=== PATIENT | male | born 1940 | race Caucasian/White ===

== ENCOUNTER → 2017-09-18 14:27 | Outpatient (CLI) | payer MEDICARE, SELFPAY ==
--- NOTE | 2017-09-18 14:47 | EKG12_ITS ---
Test Reason : PRE OP Blood Pressure : / mmHG Vent. Rate : 058 BPM Atrial Rate : 058 BPM P-R Int : 258 ms QRS Dur : 108 ms QT Int : 456 ms P-R-T Axes : 070 058 078 degrees QTc Int : 447 ms Sinus bradycardia with 1st degree A-V block Otherwise normal ECG Confirmed by LAURA VASQUEZ, MARIANA ([id number]), fashion editor RAVINDRA GUZMAN ([id number]) on 09/19/2017 1:22:46 PM Referred By: HIRO Confirmed By:MARIANA SANCHEZ MD
[2017-09-18 15:07] LABS: Hematocrit 41.8 % (40-54); Hemoglobin 13.9 g/dl (13.0-16.5); Mean Corp Hgb Conc 33.3 g/gl (32-36); Mean Corpuscular Hgb 32.6 pg (27.0-32.0); Mean Corpuscular Volume 97.9 fL (80-94); Mean Platelet Vol. 9.7 fl (6.2-12.0); Platelet Count 185 K/mm3 (150-450); RBC Distribution Width CV 12.6 % (11.6-14.6); RBC Distribution Width SD 43.7 fl (35.1-43.9); Red Blood Count 4.27 M/mm3 (4.6-6.2); White Blood Count 5.4 K/mm3 (4.4-11.0)
[2017-09-18 15:09] LABS: Scan Indicated on CBC? Y/N NO
[2017-09-18 15:32] LABS: Anion Gap 4 (5-15); BUN 26 mg/dL (7-18); BUN/Creat Ratio 18.7 RATIO (10-20); Calcium,Total 8.6 mg/dL (8.5-10.1); Chloride 106 mmol/L (98-107); Creatinine, Serum 1.39 mg/dL (0.70-1.30); EST Glomerular Filtration Rate 53 mL/min (>60); Est Glom Filt Rate - Afr Amer 64 mL/min (>60); Glucose 121 mg/dL (74-106); Potassium 4.2 mmol/L (3.5-5.1); Sodium Level 140 mmol/L (136-145)
== END ==
PROVIDERS: Family Provider Family Medicine; PCP Family Medicine; Visit Provider Urology
DX: N40.2 Nodular prostate without lower urinary tract symptoms (principal); N47.1 Phimosis; N48.1 Balanitis
CPT/HCPCS: 36415; 80048; 84153; 85027; 93005

== ENCOUNTER → 2017-10-06 15:51 | Outpatient (CLI) | payer MEDICARE, SELFPAY ==
--- NOTE | 2016-10-06 | IMM_PTH ---
PATIENT: SOCORRO ROSA LOC: [facility] U#:[id number] AGE/SX: 84/M ROOM: RE10/06/[address]: Dr. Italo Tinsley MD : 1940 BED: DIS: SPEC #: [id number] RECD: 10/10/17 11:35 STATUS: LIANE REMamie #: [id number] AMPARO: 10/06/16 00:[address]: Italo Tinsley DEPT: IMMUNOHISTOCHEMISTRY RECD BY: Lissett Gaxiola ENTERED: 10/10/17 11:37 SP TYPE: IMMUNO OTHR DR: Dr. Minesh Hope MD Tissues: E - PROSTATE LEFT Procedures: P40 (add) 34BE12 (initial) PHYSICIAN & INSTITUTION [place] [id number] SPECIMEN INFORMATION: Tissue Source: E - Left prostate, mid, core biopsy Clinical Info: Balanitis, nodular prostate without obstruction, nocturia Specimen Number: [id number] CPT code: 12803, 07485 METHODOLOGY: Deparaffinized sections of prefer/formalin-fixed tissue or PAP/DQ stained slides are incubated with monoclonal/polyclonal antibodies/oligonucleotide probes. Localization is made via biotin free immunoperoxidase method. Appropriate controls are performed and reacted as expected. Results on target cell population are indicated in the following table: RESULTS: ANTIBODY / CLONE RESULT Block E P40 (BC28) negative 34BE12 (34BE12) negative These tests were developed and their performance characteristics determined by [facility]. They may not have been cleared or approved by the U.S. Food and Drug Administration. The FDA has determined that such clearance or approval is not necessary. INTERPRETATION: E. Left prostate, mid, core biopsy: Adenocarcinoma. AM:avi 10/11/17
--- NOTE | 2017-10-06 08:00 | PROSBIL_PTH ---
PATIENT: SOCORRO ROSA LOC: [facility] U#:[id number] AGE/SX: 84/M ROOM: RE10/06/[address]: Dr. Italo Tinsley MD : 1940 BED: DIS: SPEC #: [id number] RECD: 10/06/17 15:25 STATUS: LIANE MENDY #: [id number] AMPARO: 10/06/17 08:[address]: Italo Tinsley DEPT: SURGICAL PATHOLOGY RECD BY: Silver Nugent ENTERED: 10/09/17 09:47 SP TYPE: PROST BX DANIELLE DR: Dr. Minesh Hope MD [facility] Tissues: A - PROSTATE RIGHT B - PROSTATE RIGHT C - PROSTATE RIGHT D - PROSTATE LEFT E - PROSTATE LEFT F - PROSTATE LEFT Procedures: PROSTATE BX HEADER OPERATION: Circumcision, transrectal ultrasound-guided prostate biopsy PRE-OP DIAGNOSIS: Balanitis, nodular prostate without obstruction, nocturia TISSUE SUBMITTED: A - Right base, B - Right mid, C - Right apex, D - Left base, E - Left mid, F - Left apex MICROSCOPIC DIAGNOSIS A. Right prostate, base, core biopsy: Adenocarcinoma: Alber grade: 7 (3+4) Cores involved: 2 out of 2 Tissue involved: 60% Greatest tumor length: 7 mm B. Right prostate, mid, core biopsy: Adenocarcinoma: Alber grade: 7 (4+3) Cores involved: 2 out of 2 Tissue involved: 70% Greatest tumor length: 11 mm C. Right prostate, apex, core biopsy: Adenocarcinoma: [place] grade: 7 (4+3) Cores involved: 2 out of 2 Tissue involved: 60% Greatest tumor length: 9 mm D. Left prostate, base, core biopsy: Adenocarcinoma: Alber grade: 7 (4+3) Cores involved: 1 out of 2 Tissue involved: 10% Greatest tumor length: 2 mm Other findings: Focal high-grade prostatic intraepithelial neoplasia (HGPIN). E. Left prostate, mid, core biopsy: Adenocarcinoma: Alber grade: 7 (3+4) Cores involved: 1 out of 2 Tissue involved: 40% Greatest tumor length: 4 mm (discontinuous) F. Left prostate, apex, core biopsy: Adenocarcinoma: Alber grade: 7 (3+4) Cores involved: 2 out of 2 Tissue involved: 45% Greatest tumor length: 10 mm (discontinuous) AM:avi 10/10/17 COMMENT E. Immunohistochemistry ([id number]) supports the above diagnosis. MICROSCOPIC DESCRIPTION Slides are reviewed. GROSS DESCRIPTION A - Received is one container labeled with the patient's name and not further designated. The specimen consists of two elongated fragments of light martinez-white soft tissue each measuring 1 cm in length and 0.1 cm in diameter. The specimen is totally submitted in one cassette. B - Received is one container labeled with the patient's name and not further designated. The specimen consists of two elongated fragments of light martinez-white soft tissue each measuring 1 cm in length and 0.1 cm in diameter. The specimen is totally submitted in one cassette. C - Received is one container labeled with the patient's name and not further designated. The specimen consists of two elongated fragments of light martinez-white soft tissue each measuring 1 cm in length and 0.1 cm in diameter. The specimen is totally submitted in one cassette. D - Received is one container labeled with the patient's name and not further designated. The specimen consists of two elongated fragments of light martinez-white soft tissue each measuring 1 cm in length and 0.1 cm in diameter. The specimen is totally submitted in one cassette. E - Received is one container labeled with the patient's name and not further designated. The specimen consists of two elongated fragments of light martinez-white soft tissue each measuring 0.8 cm in length and 0.1 cm in diameter. The specimen is totally submitted in one cassette. F - Received is one container labeled with the patient's name and not further designated. The specimen consists of two elongated fragments of light martinez-white soft tissue each measuring 1.2 cm in length and 0.1 cm in diameter. The specimen is totally submitted in one cassette. / AM:avi 10/09/17 TC:0 CPT: G0146
== END ==
PROVIDERS: Family Provider Family Medicine; PCP Family Medicine; Visit Provider Urology
DX: N48.1 Balanitis (principal); N40.1 Benign prostatic hyperplasia with lower urinary tract symptoms; R35.1 Nocturia
CPT/HCPCS: 88305; 88341; 88342; G0416

== ENCOUNTER → 2017-10-17 08:36 | Outpatient (CLI) | payer MEDICARE, SELFPAY ==
--- NOTE | 2017-10-17 08:40 | NM_ITS ---
CLINICAL: 77-year-old male with reported history of recent diagnosis of primary prostate carcinoma. WHOLE BODY 99m Tc MDP RADIONUCLIDE BONE SCINTIGRAPHY COMPARISON: None available FINDINGS: Following the intravenous administration of 25.0 mCi of 99m Tc MDP, whole body bone images reveal: 1. Increased radiopharmaceutical concentration is identified in the acromioclavicular and sternoclavicular compartments of both shoulders, mid cervical spine posteriorly on the right, first thoracic vertebra posteriorly on the left than right, second lumbar vertebra posteriorly on the right, the bilateral sacroiliac joints, right-left wrists, both hands, knees bilaterally, the left midfoot. 2. The remaining skeletal structures are scintigraphically unremarkable with normal-appearing renal images and urinary bladder activity identified. Asymmetric increased uptake is demonstrated in the right mandible most consistent with periodontal disease and/or periostitis. NM/Bone Scan Whole Body IMPRESSION: 1. The increase in radiopharmaceutical concentration defined in the bilateral shoulders, cervical, thoracic and lumbar spine, right and left sacroiliac articulations, wrists bilaterally, right-left hands, bilateral knees, the left midfoot is most consistent with degenerative arthritis. 2. There is no definitive scintigraphic evidence of diffuse axial skeletal metastatic disease on the current examination. Electronically Signed: Adi Smallwood DO at 10:09 EDT Tel , Service support ,
== END ==
PROVIDERS: Family Provider Family Medicine; PCP Family Medicine; Visit Provider Urology
DX: C61 Malignant neoplasm of prostate (principal)
CPT/HCPCS: 78306

== ENCOUNTER → 2017-10-20 12:33 | Outpatient (CLI) | payer MEDICARE, SELFPAY ==
--- NOTE | 2017-10-20 12:38 | CT_ITS ---
STUDY: CT ABDOMEN AND PELVIS WITH CONTRAST REASON FOR EXAM: Male, 77 years old. New Diagnosis prostate cancer RADIATION DOSAGE (If Supplied By Facility): CTDIvol = ( 17.71 ) mGy, DLP = ( 1105.49 ) mGycm TECHNIQUE: Transaxial images were obtained from the dome of the diaphragm to the symphysis pubis without oral contrast. 100 ml of Isovue 300 contrast was administered. Sagittal and coronal images were reconstructed. Individualized dose optimization techniques were used for this CT. COMPARISON: None. FINDINGS: The visualized lung bases are unremarkable. Partially visualized coronary calcifications. Sternotomy wires are seen midline. Normal liver. Normal gallbladder and extrahepatic biliary system. Normal spleen. Normal pancreas. Normal bilateral adrenal glands. Normal right kidney. Normal left kidney. There is a small hiatal hernia. Normal small intestine. There is a mild amount of stool within the ascending colon and transverse colon isn't decompressed near featureless appearance of the descending colon with a few scattered diverticula. There is a mildly thick-walled decompressed appearance of the rectum. Patient may have had a history of prior colitis. The appendix is visualized and appears normal. The aorta is partially calcified and mildly tortuous. There is calcification the take off of the bilateral renal arteries. Normal inferior vena cava. There a few nonspecific periaortic lymph nodes. Normal urinary bladder. The prostate measures 4.2 x 4.7 x 4.3 cm. There are a few fatty filled bilateral groin lymph nodes. There are diffuse degenerative changes of the visualized lumbar spine. At the level L2-L3 there is disc space narrowing spondylosis vacuum phenomenon mild bilateral neural foraminal narrowing or significant central stenosis. At L3-L4 there is a broad disc bulge moderate neural foramina narrowing mild central stenosis facet arthropathy. L4-L5. There is a broad disc bulge moderate neural foramina narrowing facet arthropathy and moderate central stenosis. At L5-S1 there is disc space narrowing and vacuum phenomenon mild neural foramina narrowing facet arthropathy. There is degenerative change of the SI joints. There is degenerative change of the hip joints. There are no visualized obvious lytic or sclerotic lesions throughout the visualized bony structures. CT/Abdomen/Pelvis WITH Contrast IMPRESSION: Status post CABG. Coronary artery calcification. Homogeneous liver. Minimal hydroureter hernia. Atherosclerotic disease of aorta Mild constipation Decompressed appearance of the colon with featureless appearance suggesting prior history of colitis. Mild wall thickening of the rectum could consider proctitis. The prostate is fairly homogeneous measuring 4.2 x 4.7 x 4.3 cm. No definitive obvious lytic or sclerotic or osteoblastic lesions. However recommend consideration for follow-up bone scan given the clinical diagnosis. Electronically Signed: Yoko Canela MD at 13:35 EDT Tel , Service support ,
== END ==
PROVIDERS: Family Provider Family Medicine; PCP Family Medicine; Visit Provider Urology
DX: C61 Malignant neoplasm of prostate (principal)
CPT/HCPCS: 74177; Q9967

== ENCOUNTER 2017-11-15 11:48 | Day surgery (SDC) | payer MEDICARE, SELFPAY ==
[2017-11-15 12:19] VITALS: BP 117/54; PULSE 56; RESP 14; TEMP 36.4; O2SAT 98; BMI 28.6
[2017-11-15] MEDS: Cefazolin 2 GM in 0.9% Normal Saline 100 ML IV (13:55)
--- NOTE | 2017-11-15 14:33 | PCM.DC.URO ---
Discharge Diet: Light diet - advance as tolerated Discharge Activity: Return to Normal Activity Call your doctor if your incision/area has: Continuous Slow Oozing, Sudden Increased Bleeding, Increased Pain/ Swelling, Increased Redness, Foul Smelling Discharge, Swelling at the incision site Suture Line Care: Avoid Pulling/Pushing, Avoid Pinching/Bending Allergies/Adverse Reactions: Allergies No Known Allergies Allergy (Verified 11/09/17 09:31) Medications to take at Discharge Allopurinol 100 mg PO QHS 11/09/17 Aspirin E.C. [Ecotrin] 81 mg PO DAILY@0800 11/09/17 Bicalutamide [Casodex] 50 mg PO DAILY 11/09/17 Butalbital/Acetaminophen [Butalbital-Acetaminophn 50-300] 1 each PO PRN PRN 11/09/17 Enalapril Maleate [Vasotec] 5 mg PO DAILY 11/09/17 Fluticasone Propionate [Flonase Allergy Relief] 2 spray NS DAILY 11/09/17 Furosemide [Lasix] 20 mg PO DAILY 11/09/17 Ipratropium [place] 0.06% [ATROVENT NASAL SPRAY (g)] 2 spray NASAL QHS 11/09/17 Metoprolol Tartrate [Lopressor (Beta Lamine)] 25 mg PO BID 11/09/17 Multivitamin [Multiple Vitamins] 1 each PO DAILY 11/09/17 [place]-3S/Dha/Epa/Fish Oil [[place]-3 Fish Oil 1,200 mg Sfgl] 1 each PO BID 11/09/17 Omeprazole [Prilosec] 20 mg PO DAILY 11/09/17 Rosuvastatin Calcium [Crestor] 20 mg PO QHS 11/09/17 Tamsulosin HCl [Flomax] 0.4 mg PO QHS 11/09/17 Cephalexin [Keflex] 500 mg PO BID 11/15/17 Primary Care Physician: Minesh Hope [Primary Care Provider] - Please Follow Up With: Italo Tinsley MD When: Appt MondayFebruary 05 at 1:30pm
--- NOTE | 2017-11-15 14:37 | DCINST_ITS ---
Discharge Diet: Light diet - advance as tolerated Discharge Activity: Return to Normal Activity Call your doctor if your incision/area has: Continuous Slow Oozing, Sudden Increased Bleeding, Increased Pain/ Swelling, Increased Redness, Foul Smelling Discharge, Swelling at the incision site Suture Line Care: Avoid Pulling/Pushing, Avoid Pinching/Bending Allergies/Adverse Reactions: Allergies No Known Allergies Allergy (Verified 11/09/17 09:31) Medications to take at Discharge Allopurinol 100 mg PO QHS 11/09/17 Aspirin E.C. [Ecotrin] 81 mg PO DAILY@0800 11/09/17 Bicalutamide [Casodex] 50 mg PO DAILY 11/09/17 Butalbital/Acetaminophen [Butalbital-Acetaminophn 50-300] 1 each PO PRN PRN Enalapril Maleate [Vasotec] 5 mg PO DAILY 11/09/17 Fluticasone Propionate [Flonase Allergy Relief] 2 spray NS DAILY 11/09/17 Furosemide [Lasix] 20 mg PO DAILY 11/09/17 Ipratropium [place] 0.06% [ATROVENT NASAL SPRAY (g)] 2 spray NASAL QHS 11/09/17 Metoprolol Tartrate [Lopressor (Beta Lamine)] 25 mg PO BID 11/09/17 Multivitamin [Multiple Vitamins] 1 each PO DAILY 11/09/17 [place]-3S/Dha/Epa/Fish Oil [[place]-3 Fish Oil 1,200 mg Sfgl] 1 each PO BID Omeprazole [Prilosec] 20 mg PO DAILY 11/09/17 Rosuvastatin Calcium [Crestor] 20 mg PO QHS 11/09/17 Tamsulosin HCl [Flomax] 0.4 mg PO QHS 11/09/17 Cephalexin [Keflex] 500 mg PO BID 11/15/17 Primary Care Physician: Minesh Hope [Primary Care Provider] - Please Follow Up With: Italo Tinsley MD When: Appt MondayFebruary 05 at 1:30pm
--- NOTE | 2017-11-15 14:37 | PCM.OPRPT ---
Problem List (1) Prostate cancer Status: Acute Report of Operation Date of Procedure: 11/15/17 Pre-Operative Diagnosis: Prostate cancer Post-Operative Diagnosis: same Surgery/Procedure Performed:: transperineal placement of SpaceOAR, biodegradable material. CPT 79939. transperineal placement of Gold fiducial markers in the prostate. CPT ? Type of Anesthesia:: General Drains: none - Admit VTE Documentation VTE Present on Admission: No VTE Mechan Device Prophylaxis: SCD's VTE Pharm Prophylaxis ordered?: No Reason prophylaxis not ordered:: Treatment Not Indicated
--- NOTE | 2017-11-15 14:43 | OP.PCM_ITS ---
Problem List (1) Prostate cancer Status: Acute Report of Operation Date of Procedure: 11/15/17 Pre-Operative Diagnosis: Prostate cancer Post-Operative Diagnosis: same Surgery/Procedure Performed:: transperineal placement of SpaceOAR, biodegradable material. CPT 52110. transperineal placement of Gold fiducial markers in the prostate. CPT ? Type of Anesthesia:: General Drains: none - Admit VTE Documentation VTE Present on Admission: No VTE Mechan Device Prophylaxis: SCD's VTE Pharm Prophylaxis ordered?: No Reason prophylaxis not ordered:: Treatment Not Indicated
[2017-11-15 14:45] VITALS: BP 117/54; BP 120/61; BP 128/60; PULSE 55; PULSE 58; RESP 16; TEMP 36.4; O2SAT 97
[2017-11-15 15:00] VITALS: BP 114/59; BP 117/54; PULSE 54; RESP 16; O2SAT 97
[2017-11-15 15:15] VITALS: BP 117/54; BP 120/60; PULSE 53; RESP 16; TEMP 36.2; O2SAT 98
[2017-11-15 15:50] VITALS: BP 117/54
== END 2017-11-15 15:56 | disposition home or self-care (01) ==
LOC: SDC 11:49
PROVIDERS: Family Provider Family Medicine; PCP Family Medicine; Visit Provider Urology
PROC: (CPT 10035; principal; 2017-11-15 13:50)
DX: C61 Malignant neoplasm of prostate (principal); N48.1 Balanitis; N40.3 Nodular prostate with lower urinary tract symptoms; R97.20 Elevated prostate specific antigen [PSA]; I10 Essential (primary) hypertension; I25.2 Old myocardial infarction
CPT/HCPCS: 00400; 10035; 10036 ×2; J7120

== ENCOUNTER → 2017-11-30 12:42 | Outpatient (CLI) | payer MEDICARE, SELFPAY ==
--- NOTE | 2017-11-30 12:47 | CT_ITS ---
STUDY: CT PELVIS WITH CONTRAST REASON FOR EXAM: Male, 77 years old. PROSTATE CA RADIATION DOSAGE (If Supplied By Facility): CTDIvol = ( 24.62 ) mGy, DLP = ( 1996.04 ) mGycm TECHNIQUE: Transaxial imaging of the pelvis was performed without oral contrast. 100CC ml of Isovue 300 contrast was administered intravenously. Individualized dose optimization techniques were used for this CT. COMPARISON: Oct 20 2017 12:49pm FINDINGS: Normal urinary bladder. The prostate measures 4.2 x 4.7 x 4.3 cm. Normal visualized small intestine. Normal visualized colon. There is no pelvic fluid. There is no pelvic lymphadenopathy or mass lesion. Normal visualized pelvic arteries. Normal abdominal wall. There are diffuse degenerative changes of the visualized lumbar spine. CT/CT Pelvis W/CONT Therapy IMPRESSION: The prostate measures 4.2 x 4.7 x 4.3 cm. Electronically Signed: Jarred Olson MD at 10:22 EDT Tel , Service support ,
== END ==
PROVIDERS: Family Provider Family Medicine; PCP Family Medicine; Visit Provider Radiology Radiation Oncology
DX: C61 Malignant neoplasm of prostate (principal)
CPT/HCPCS: 51600; 72193; Q9965; Q9967

== ENCOUNTER → 2019-05-06 14:24 | Outpatient (CLI) | payer MEDICARE, SELFPAY ==
[2019-05-06 15:12] LABS: PSA,Total- Diagnostic 0.02 ng/mL (0.0-4.0)
== END ==
PROVIDERS: Family Provider Family Medicine; PCP Family Medicine; Referring Provider Urology; Visit Provider Urology
DX: C61 Malignant neoplasm of prostate (principal)
CPT/HCPCS: 36415; 84153

== ENCOUNTER → 2025-04-03 | Outpatient (CLI) | payer OTHER, SELFPAY ==
--- OUTSIDE RECORDS SUMMARY | 2025-04-03 15:57 | XMS RPT_ITS | CCD ---
Author Organization [facility] Care Team Providers Care Geotechnical Field Technician Name Role Phone Nasim CHATTERJEE, Luke E Unavailable Nasim CHATTERJEE, Nehalke E Unavailable Brian VASQUEZ, Dr. Junie Barrett Unavailable Cal VASQUEZ, Dr. Joshua Acharya Unavailable Dr. Alexys Ribera MD Unavailable [facility] Unavailable Alvina VASQUEZ, Dr. Puckett ([facility]) Unavailable [facility], . Unavailable Pacheco VASQUEZ, Dr. Clifton Whittaker Unavailable Jun VASQUEZ, Dr. Mcdaniel Unavailable [phone] [facility] Unavailable Agnieszka VASQUEZ, Dr. Frederick Unavailable Juarez CHATTERJEE, Amanda Acharya Unavailable Jayy VASQUEZ, Minesh Whittaker Unavailable Bennett ALARCONN, Mercedes García Unavailable Unavailable Austin ALARCONN, Cookie Unavailable Unavailable Dany VASQUEZ, Chase Silva Unavailable Anabella CHATTERJEE, Elizabeth Ames Unavailable [phone] Raul BECKMAN, Anat Unavailable Unavailable Traci HERRERA, Elizabeth Silva Unavailable Unavaila donna Saeed MA, Heidi Unavailable Unavailable Ajay ALARCONN, Elaine Unavailable Unavailable Diana ALARCONN, Carie K Unavailable Unavadee Clark PA-C, Iliana Acharya Unavailable Nica Ibarra Unavailable Dorcas BECKMAN, Shital Barrett Unavailable Unavailab le Sacha GUNSTOCK REPAIRER, Ольга Davila Unavailable Unavailab hasmukh [place] GUNSTOCK REPAIRER, Alicia Pittman Unavailable Unavailab hasmukh Laura MD, Kalin Silva Unavailable [phone] Vess GUNSTOCK REPAIRER, Mary Barrett Unavailable Unavailable Jerald GUNSTOCK REPAIRER, Joan Unavailable Unavailabl delmis Bowman GUNSTOCK REPAIRER, Kiki Unavailable Unavailable Unavailable Unavailable Cardiology Provider Unavailable Unavailable Ramos GUNSTOCK REPAIRER, Zaid Unavailable Unavailable Unavailable Unavailable Javon VASQUEZ, Dr. Garvey Unavailable [phone] JUNIE ROY Admitting Unavailable JUNIE ROY Primary Care Unavailable JUNIE ROY Attending Unavailable MINESH JACKSON Consulting Unavailable PROVIDER, UNKNOWN Consulting Unavailable PROVIDER, UNKNOWN Consulting Unavailable PROVIDER, UNKNOWN Consulting Unavailable JUNIE ROY Admitting Unavailable JUNIE ROY Primary Care Unavailable JUNIE ROY Attending Unavailable MINESH JACKSON Consulting Unavailable PROVIDER, UNKNOWN Consulting Unavailable PROVIDER, UNKNOWN Consulting Unavailable PROVIDER, UNKNOWN Consulting Unavailable Allergies Allergy Classification Reported Allergen(s) Allergy Type Date of Onset Reaction(s) Facility (3 sources) levoFLOXacin Drug Allergy [facility]; [facility] (1 source) levoFLOXacin Drug Allergy [facility] Repository Medications Current Medications Medication Drug Class(es) Dates Sig (Normalized) Sig (Original) 8 hr acetaminophen 650 mg extended release oral tablet (3 sources) Arthritis Pain Relief 650 MG Oral Tablet Extended Release ; as needed (650 MG) Comments: Medication taken as needed. Comment on above: Medication taken as needed. acetaminophen 325 mg / butalbital 50 mg oral tablet (3 sources) Barbiturate Start: 02-12-2025 butalbitaL 50 mg-acetaminophen 325 mg tablet ; 1 (one) Tablet q 6hrs prn migraine for 0 days Quantity: 30 {Tablet} Refills: 0 Ordered: 12-Feb-2025 SEN Rouse Start: 12-Feb-2025 Comments: OARRS 02/12/25 Start: 03-04-2021 take 1 tablet by candice th every six hours as needed Butalbital-Acetaminophen 50-325 MG Oral Tablet ; 1 (one) Tablet q 6hrs prn migraine for 0 days Quantity: 30 {Tablet} Refills: 0 Ordered: 04-Mar-2021 MD Minesh Jackson Start: 04-Mar-2021 Comments: OARRS03/04/2021WM Comment on above: OARRS03/04/2021WM OARRS 02/12/25 allopurinol 100 mg oral tablet (3 sources) Xanthine Oxidase Inhibitor Start: 021 take 1 tablet by mouth once daily Allopurinol 100 MG Oral Tablet ; 1 (one) Tablet qd for 0 days Quantity: 90 {Tablet} Refills: 1 Ordered: 28-Apr-2021 MD Minesh Jackson Start: 28-Apr-2021 aspirin 81 mg chewable tablet (3 sources) Platelet Aggregation Inhibitor, Nonsteroidal Anti-inflammatory Drug take 1 tablet by mouth once daily ASPIRIN CHILDRENS, 81MG (Oral Tablet Chewable) ; 1 daily (81 MG) cholecalciferol 0.125 mg oral capsule (3 sources) Vitamin D take 1 capsule by mouth once daily Vitamin D3 125 MCG (5000 UT) Oral Capsule ; 1 daily (125 MCG (5000 UT)) enalapril maleate 10 mg oral tablet (3 sources) Angiotensin Converting Enzyme Inhibitor enalapril maleate 10 mg tablet ; 1 daily (10 mg) take 1 tablet by mouth once hu y ENALAPRIL MALEATE, 5MG (Oral Tablet) ; 1 daily (5 MG) Fish Oil 1200 MG Oral Capsule Delayed Release (3 sources) take 1 capsule by mouth twice daily Fish Oil 1200 MG Oral Capsule Delayed Release ; 1 two times a day (1200 MG) fluticasone propionate 0.05 mg/actuat metered dose nasal spray (3 sources) Corticosteroid Start: 05-18-20 20 take 2 spray(s) nasal route once Fluticasone Propionate 50 MCG/ACT Nasal Suspension ; 2 (two) sprays per nostril qd for 0 days Quantity: 1 {Inhaler} Refills: 5 Ordered: 18-May-2020 MD Chase Saenz Start: 18-May-2020 furosemide 20 mg oral tablet (3 sources) Loop Diuretic Start: 06-14-20 21 take 1 tablet by mouth once daily Furosemide 20 MG Oral Tablet ; 1 (one) Tablet qd for 0 days Quantity: 45 {Tablet} Refills: 5 Ordered: 14-Jun-2021 MD Minesh Jackson Start: 14-Jun-2021 Comments: WM Davila Comment on above: WM Davila lamoTRIgine 100 mg oral tablet (2 sources) Mood Stabilizer, Anti-epileptic Agent lamoTRIgine 100 mg tablet ; two times daily (100 mg) metoprolol tartrate 25 mg oral tablet (3 sources) beta-Adrenergic Lamine take 1 tablet by mouth twice daily METOPROLOL TARTRATE, 25MG (Oral Tablet) ; 1 two times daily (25 MG) nitroglycerin 0.4 mg sublingual tablet (3 sources) Nitrate Vasodilator NITROSTAT, 0 .4MG (Sublingual Tablet Sublingual) ; 1 q5 min up to 3 doses prn (0.4 MG) omeprazole 40 mg delayed release oral capsule (3 sources) Proton Pump Inhibitor Start: 02-13-20 omeprazole 40 mg capsule,delayed release ; 1 Capsule daily for 0 days Quantity: 30 {Capsule} Refills: 5 Ordered: 12-Feb-2025 SEN Rouse Start: 12-Feb-2025 Start: 03-29-2021 take 1 capsule by mo [facility] once daily Omeprazole 20 MG Oral Capsule Delayed Release ; 1 Capsule daily for 0 days Quantity: 30 {Capsule} Refills: 5 Ordered: 29-Mar-2021 MD Minesh Jackson Start: 29-Mar-2021 rosuvastatin calcium 20 mg oral tablet (5 sources) HMG-CoA Reductase Inhibitor End: 02-12-2025 rosuvastatin 20 mg tablet ; daily (20 mg) solifenacin succinate 10 mg oral tablet (2 sources) Cholinergic Muscarinic Antagonist solifenacin 10 mg tablet ; daily (10 mg) tamsulosin hydrochloride 0.4 mg oral capsule (3 sources) alpha-Adrenergic Lamine Start: 06-14-2021 take 1 capsule by mouth once daily Tamsulosin HCl 0.4 MG Oral Capsule ; 1 Capsule qd for 0 days Quantity: 30 {Capsule} Refills: 5 Ordered: 14-Jun-2021 MD Minesh Jackson Start: 14-Jun-2021 Completed/Discontinued Medications Medication Drug Class(es) Dates Sig (Normalized) Sig (Original) acetaminophen 325 mg / dichloralphenazone 100 mg / isometheptene 65 mg oral capsule (3 sources) MIDRIN, [id number] (Oral Capsule) ; as needed (325-65-100 MG) Status: Inactive Comments: Medication taken as needed. Comment on above: Medication taken as needed. amitriptyline hydrochloride 10 mg oral tablet (3 sources) Tricyclic Antidepressant End: 02-12-2025 take 1 tablet by mouth at bedtime Amitriptyline HCl 10 MG Oral Tablet ; 1 at bedtime (10 MG) End: 12-Feb-2025 Status: Inactive amoxicillin 875 mg / clavulanate 125 mg oral tablet (3 sources) Penicillin-class Antibacterial Start: 02-25-2021 End: 03-07-2021 take 1 tablet by mouth twice daily at mealtime Amoxicillin-Pot Clavulanate 875-125 MG Oral Tablet ; 1 Tablet two times daily for 10 days Quantity: 20 {Tablet} Refills: 0 Ordered: 25-Feb-2021 MD Minesh Jackson Start: 25-Feb-2021 End: 07-Mar-2021 Status: Inactive Comments: Take with food Comment on above: Take with food aspirin 325 mg / butalbital 50 mg / caffeine 40 mg oral capsule (6 sources) Platelet Aggregation Inhibitor, Barbiturate, Nonsteroidal Anti-inflammatory Drug, Central Nervous System Stimulant, Methylxanthine Start: 03-18-2013 End: 09-18-2013 take 1 capsule by mouth every six hours as needed FIORINAL, 50-325-40MG (Oral Capsule) ; 1 Capsule q 6hrs prn LAM for 0 days Quantity: 30 {Capsule} Refills: 5 Ordered: 18-Sep-2013 KARUNA Wisdom Alicia Pittman Start: 18-Mar-2013 End: 18-Sep-2013 Status: Inactive Comments: MM BUTALBITAL COMPO UND/ASA, 50-325-40MG (Oral Capsule) ; (50-325-40 MG) Status: Inactive Comment on above: MM cefuroxime 250 mg oral tablet (3 sources) Cephalosporin Antibacterial take 1 tablet by mouth twice daily Ceftin 250 MG Oral Tablet ; 1 two times daily (250 MG) Status: Inactive Comments: given at ER Comment on above: given at ER cephalexin 500 mg oral capsule (3 sources) Cephalosporin Antibacterial Start: End: take 1 capsule by mouth three times daily CEPHALEXIN, 500MG (Oral Capsule) ; 1 Capsule three times daily for 10 days Quantity: 30 {Capsule} Refills: 0 Ordered: 17-Sep-2012 MD Minesh Jackson Start: 05-Sep-2012 End: 15-Sep-2012 Status: Inactive donepezil hydrochloride 5 mg oral tablet (6 sources) Start: End: take 1 tablet by mouth once daily Aricept 5 MG Oral Tablet ; 1 (one) Tablet Tablet qd for 0 days Quantity: 30 {Tablet} Refills: 5 Ordered: 26-Nov-2019 KARUNA Wisdom Start: 11-Jun-2019 End: 26-Nov-2019 Status: Inactive escitalopram 20 mg oral tablet (3 sources) Serotonin Reuptake Inhibitor Start: End: take 1 tablet by mouth once daily Escitalopram Oxalate 20 MG Oral Tablet ; 1 (one) Tablet qd for 0 days Quantity: 30 {Tablet} Refills: 5 Ordered: 24-Apr-2019 MD Minesh Jackson Start: 29-Mar-2019 End: 24-Apr-2019 Status: Inactive fluconazole 100 mg oral tablet (3 sources) Azole Antifungal Start: End: take 1 tablet by mouth once daily Diflucan 100 MG Oral Tablet ; 1 Tablet daily for 7 days Quantity: 7 {Tablet} Refills: 0 Ordered: 28-Jul-2017 MD Minesh Jackson Start: 28-Jul-2017 End: 04-Aug-2017 Status: Inactive Fortify Daily Probiotic Oral Capsule (3 sources) take 1 capsule by mouth once daily Fortify Daily Probiotic Oral Capsule Status: Inactive GLUCOSAMINE CHONDROITIN COMPLX (Oral Capsule) (3 sources) take 2 capsules by mouth twice daily GLUCOSAMINE CHONDROITIN COMPLX (Oral Capsule) ; 2 two times daily Status: Inactive ibuprofen 200 mg oral tablet (3 sources) Nonsteroidal Anti-inflammatory Drug take 1 tablet by mouth twice daily as needed IBUPROFEN 200, 200MG (PO Tab) ; 1 two times daily, as needed (200 MG) Status: Inactive Comments: Medication taken as needed. Comment on above: Medication taken as needed. ipratropium bromide 0.042 mg/actuat metered dose nasal spray (3 sources) Anticholinergic Ipratropium Anderson 0.06 % Nasal Solution ; (0.06 %) Status: Inactive Comments: per Dr. Aaron Comment on above: per Dr. Aaron Ipratropium Anderson 18 MCG/ACT Inhalation Aerosol Solution (3 sources) Ipratropium Anderson 18 MCG/ACT Inhalation Aerosol Solution ; 2 daily (18 MCG/ACT) Status: Inactive levoFLOXacin 500 mg oral tablet (3 sources) Quinolone Antimicrobial Start: 017 End: take 1 tablet by mouth once daily Levaquin 500 MG Oral Tablet ; 1 Tab Daily for 10 days Quantity: 10 {Tablet} Refills: 0 Ordered: 05-Sep-2016 MD Minesh Jackson Start: 02-Sep-2016 End: 05-Sep-2016 Status: Inactive lovastatin 20 mg oral tablet (3 sources) HMG-CoA Reductase Inhibitor Start: End: take 1 tablet by mouth once daily Lovastatin 20 MG Oral Tablet ; 1 Tablet daily for 0 days Quantity: 30 {Tablet} Refills: 5 Ordered: 14-Aug-2017 KARUNA Guajardo Start: 29-Apr-2016 End: 14-Aug-2017 Status: Inactive meclizine hydrochloride 25 mg oral tablet (3 sources) Antiemetic Start: End: DRAMAMINE LESS DROWSY, 25MG (Oral Tablet) ; 1 Tablet 68h for 0 days Quantity: 30 {Tablet} Refills: 0 Ordered: 11-Jul-2013 KARUNA Marques Start: 22-Apr-2010 End: 11-Jul-2013 Status: Inactive meloxicam 15 mg oral tablet (3 sources) Nonsteroidal Anti-inflammatory Drug Start: End: take 1 tablet by mouth once daily Meloxicam 15 MG Oral Tablet ; 1 (one) Tablet qd for 0 days Quantity: 30 {Tablet} Refills: 5 Ordered: 26-Nov-2019 MD Minesh Jackson Start: 28-Oct-2019 End: 26-Nov-2019 Status: Inactive Mens Multivitamin Plus Oral Tablet (3 sources) take 1 tablet by mouth once daily Mens Multivitamin Plus Oral Tablet ; 1 daily Status: Inactive nystatin [id number] unt/ml topical cream (3 sources) Polyene Antifungal Start: End: Nystatin [id number] UNIT/GM External Cream ; apply Cream tid prn for 0 days Quantity: 60 {Gram} Refills: 5 Ordered: 06-Dec-2017 KARUNA Ortiz K Start: 28-Jul-2017 End: 06-Dec-2017 Status: Inactive Westerly 3 1000 MG Oral Capsule (3 sources) take 1 capsule by mouth once daily [place]esterly 3 1000 MG Oral Capsule ; 1 daily (1000 MG) Status: Inactive predniSONE 20 mg oral tablet (3 sources) Start: 016 End: take 3 tablets by mouth once daily, then take 2 tablets by mouth once daily, then take 1 tablet by mouth once daily, then take 0.5 tablet by mouth once daily PredniSONE 20 MG Oral Tablet ; Tablet for 0 days Quantity: 20 {Tablet} Refills: 0 Ordered: 06-Dec-2017 KARUNA Ortiz Start: 29-Apr-2016 End: 06-Dec-2017 Status: Inactive Comments: Take 3tabs qd for 3 days thenTake 2tabs qd for 3 days thenTake 1tab qd for 3 days thenTake 1/2tab qd for 4 days. Comment on above: Take 3tabs qd for 3 days thenTake 2tabs qd for 3 days thenTake 1tab qd for 3 days thenTake 1/2tab qd for 4 days. sulfamethoxazole 800 mg / trimethoprim 160 mg oral tablet (3 sources) Dihydrofolate Reductase Inhibitor Antibacterial, Sulfonamide Antimicrobial Start: 020 End: take 1 tablet by mouth twice daily Bactrim DS 800-160 MG Oral Tablet ; 1 (one) Tablet bid for 10 days Quantity: 20 {Tablet} Refills: 0 Ordered: 01-Jul-2019 MD Minesh Jackson Start: 01-Jul-2019 End: 11-Jul-2019 Status: Inactive triamcinolone acetonide 0.055 mg/actuat metered dose nasal spray (6 sources) Corticosteroid Start: 011 End: 014 NASACORT AQ, 55MCG/ACT (Nasal Aerosol Solution) ; 2 squirts each nostril daily for nasal allergies for 0 days Quantity: 1 {nasal_pump} Refills: 0 Ordered: 11-Jul-2013 KARUNA Marques Start: 27-Jul-2010 End: 11-Jul-2013 Status: Inactive NASACORT AQ, 55M CG/ACT (Nasal Aerosol Solution) ; 2 sprays daily (55 MCG/ACT) Status: Inactive 24 hr venlafaxine 37.5 mg extended release oral capsule (6 sources) Serotonin and Norepinephrine Reuptake Inhibitor Start: 04-24-2019 End: 04-29-2019 take 1 capsule by mouth once daily Venlafaxine HCl ER 37.5 MG Oral Capsule Extended Release 24 Hour ; 1 (one) Capsule qd for 14 days Quantity: 14 {Capsule} Refills: 0 Ordered: 29-Apr-2019 MD Minesh Jackson Start: 24-Apr-2019 End: 29-Apr-2019 Status: Inactive Start: 04-24-2019 End: 04-29-2019 take 1 capsule by mouth once daily Venlafaxine HCl ER 75 MG Oral Capsule Extended Release 24 Hour ; 1 (one) Capsule qd for 0 days Quantity: 30 {Capsule} Refills: 5 Ordered: 29-Apr-2019 MD Minesh Jackson Start: 24-Apr-2019 End: 29-Apr-2019 Status: Inactive Problems Active Problems Problem Classification Problem Date Documented Da te Episodic/Chronic Abdominal hernia (9 sources) Umbilical hernia; Translations: [Umbilical hernia without obstruction or gangrene] 03-07-2016 Episodic Abdominal pain (12 sources) Abdominal pain, generalized 04-12-2019 Episodic Allergic reactions (6 sources) Contact dermatitis and other eczema, unspecified cause 04-12-2019 Episodic Cancer of prostate (18 sources) Malignant tumor of prostate; Translations: [Malignant neoplasm of prostate] 03-29-2021 Chronic Cancer of prostate (11 sources) History of malignant neoplasm of prostate; Translations: [Personal history of malignant neoplasm of prostate] 02-12-2025 Episodic Chronic kidney disease (16 sources) Chronic kidney disease stage 3; Translations: [Chronic kidney disease, Stage III (moderate)] Onset: 5 03-29-2021 Chronic Chronic obstructive pulmonary disease and bronchiectasis (3 sources) Bronchitis; Translations: [Bronchitis, not specified as acute or chronic] 07-11-2013 Episodic Chronic ulcer of skin (2 sources) Pressure ulcer of buttock; Translations: [Pressure ulcer of unspecified buttock, unspecified stage] 02-13-2025 Chronic Conditions associated with dizziness or vertigo (6 sources) Benign paroxysmal positional vertigo; Translations: [Benign paroxysmal vertigo, unspecified ear] 04-12-2019 Episodic Coronary atherosclerosis and other heart disease (20 sources) Coronary arteriosclerosis in [place] artery; Translations: [Atherosclerotic heart disease of [place] coronary artery without angina pectoris] Onset: 5 03-29-2021 Chronic Disorders of lipid metabolism (20 sources) Hyperlipidemia; Translations: [Hyperlipidemia, unspecified] Onset: 5 03-29-2021 Chronic E Codes: Natural/environment (6 sources) Bitten or stung by nonvenomous insect and other nonvenomous arthropods, initial encounter; Translations: [Insect bite, nonvenomous, of other, multiple, and unspecified sites, without mention of infection] 05-28-2019 Episodic Esophageal disorders (20 sources) Gastroesophageal reflux disease; Translations: [Gastro-esophageal reflux disease without esophagitis] 03-29-2021 Chronic Essential hypertension (20 sources) Benign essential hypertension; Translations: [Essential (primary) hypertension] Onset: 5 03-29-2021 Chronic Gout and other crystal arthropathies (20 sources) Gout; Translations: [Gout, unspecified] 03-29-2021 Chronic Headache; including migraine (20 sources) Migraine; Translations: [Migraine without aura, not intractable, without status migrainosus] 03-29-2021 Chronic Hyperplasia of prostate (18 sources) Benign prostatic hypertrophy with outflow obstruction; Translations: [Benign prostatic hyperplasia with lower urinary tract symptoms] 04-12-2019 Chronic Immunizations and screening for infectious disease (15 sources) Requires vaccination; Translations: [Encounter for immunization] 11-26-2019 Episodic Malaise and fatigue (6 sources) Fatigue; Translations: [Other fatigue] 04-12-2019 Episodic Mood disorders (20 sources) Recurrent major depressive episodes, mild ; Translations: [Major depressive disorder, recurrent, mild] 03-29-2021 Chronic Mycoses (9 sources) Penile candidiasis; Translations: [Other urogenital candidiasis] 08-14-2017 Episodic Noninfectious gastroenteritis (6 sources) Gastroenteritis; Translations: [Noninfective gastroenteritis and colitis, unspecified] 04-12-2019 Episodic Osteoarthritis (20 sources) Osteoarthrosis, unspecified whether generalized or localized, pelvic region and thigh; Translations: [Osteoarthritis of bilateral hip joints] 04-12-2019 Chronic Other aftercare (20 sources) Long-term (current) use of other medications 04-12-2019 Episodic Other circulatory disease (1 source) Disorder of arteries and arterioles, unspecified; Translations: [Disorder of arteries and arterioles, unspecified] Onset: 09-15-202 5 Chronic Other connective tissue disease (6 sources) Ganglion cyst; Translations: [Ganglion, unspecified site] 09-10-2019 Episodic Other connective tissue disease (6 sources) Ganglion cyst of right wrist; Translations: [Ganglion, right wrist] 03-29-2021 Episodic Other connective tissue disease (6 sources) Pain in lower limb; Translations: [Pain in leg, unspecified] 04-12-2019 Episodic Other connective tissue disease (9 sources) Swelling of lower limb; Translations: [Other specified soft tissue disorders] 09-01-2015 Episodic Other connective tissue disease (6 sources) Cramp; Translations: [Cramp and spasm] 11-25-2014 Episodic Other ear and sense organ disorders (3 sources) Impacted cerumen 2012 Episodic Other gastrointestinal disorders (6 sources) Diarrhea; Translations: [Diarrhea, unspecified] 09-10-2019 Episodic Other injuries and conditions due to external causes (3 sources) Friction blisters of the skin; Translations: [Other injury of unspecified body region] 01-18-2016 Episodic Other lower respiratory disease (15 sources) Cough; Translations: [Cough] 03-29-2021 Episodic Other male genital disorders (3 sources) Impotence of organic origin 05-09-2012 Chronic Other nervous system disorders (6 sources) Neuropathy; Translations: [Polyneuropathy, unspecified] 03-29-2021 Chronic Other non-epithelial cancer of skin (4 sources) History of malignant neoplasm of skin; Translations: [Personal history of other malignant neoplasm of skin] 02-12-2025 Episodic Other non-traumatic joint disorders (12 sources) Polyarthropathy; Translations: [Polyarthritis, unspecified] 03-29-2021 Chronic Other nutritional; endocrine; and metabolic disorders (6 sources) Overweight in adulthood with body mass index of 25 or more but less than 30; Translations: [Body mass index (BMI) 29.0-29.9, adult] 04-12-2019 Episodic Other nutritional; endocrine; and metabolic disorders (3 sources) Body mass index less than 20; Translations: [Body mass index (BMI) 19.9 or less, adult] 05-12-2017 Episodic Other screening for suspected conditions (not mental disorders or infectious disease) (12 sources) Patient encounter status; Translations: [Encounter for screening for nutritional disorder] 03-29-2021 Episodic Other skin disorders (6 sources) Eruption; Translations: [Rash and other nonspecific skin eruption] 04-12-2019 Episodic Other upper respiratory disease (6 sources) Congestion of nasal sinus; Translations: [Nasal congestion] 09-10-2019 Episodic Other upper respiratory disease (3 sources) Nasal congestion; Translations: [Nasal congestion] 02-10-2015 Episodic Other upper respiratory infections (20 sources) Chronic sinusitis; Translations: [Chronic sinusitis, unspecified] 05-28-2019 Chronic Other upper respiratory infections (18 sources) Acute sinusitis; Translations: [Acute sinusitis, unspecified] 06-08-2019 Episodic Residual codes; unclassified (3 sources) Confusional state; Translations: [Disorientation, unspecified] 07-01-2019 Episodic Residual codes; unclassified (9 sources) Altered mental status; Translations: [Altered mental status, unspecified] 06-11-2019 Episodic Unclassified (3 sources) MCR Well Adult - In general the patient feels well with no complaints, has good energy level and is sleeping well. The patient has a balanced diet and takes supplemental vitamins. The patient exercises weekly and sleeps 8 hours per night. The patient denies having trouble with bathing, dressing/grooming, toileting, preparing meals and ambulating. The patient denies having trouble with grocery shopping, driving, use of telephone, housework, laundry, preparing/taking medications and finances. The patient has a Healthcare Power of Cloth Feeder and a Living Will. Note for "MCR Well Adult": reviewed by [facility] 01-12-2021 Unclassified (3 sources) Pre-operative clearance - Surgical procedure(s) planned: other (cataract extraction with lens implant.). Date of procedure: (12-10-20) Surgeon: ([facility]) and Location of procedure: ([facility]) There have been no problems with general anesthesia or blood/blood products. Prosthetics include eye glasses. Note for Pre-operative clearance": reviewed by [facility] 12-01-2020 Unclassified (3 sources) Follow up for multiple chronic conditions - The patient is here for follow-up of chronic kidney disease, coronary artery disease, depression, GERD, gout, hyperlipidemia, hypertension and other condition(s) (prostate cancer). The patient always takes the prescribed medications. No side effects noted. The patient has low activity level and no regular exercise program. The patient's out of office blood pressure checks occur occasionally and dietary compliance is fairly good usually adhering to recommendations. The patient states that there is no recent angina or dyspnea (will have a discomfort of the right side of chest that comes and goes, "feels like gas".), weight has increased (3lbs since DONALDO) and headaches have been noticed occasionally. Note for "Multiple chronic conditions follow-up": Will be leaving soon to go to [place] but will return in about 1 month. 02-21-2020 Unclassified (3 sources) [ADDITIONAL REASON] Transition into care - The patient is transitioning into care from another physician (Urologist Dr. Tinsley 01/20/2020) and a summary of care was reviewed. 02-21-2020 Unclassified (2 sources) MCR Well Adult - In general the patient feels well with no complaints, has good energy level and is sleeping well. The patient has a balanced diet and takes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 sources) Foot pain - The pain is in the left foot and is located in the entire foot. The onset of the foot pain was acute and has been occurring for 5 days. The course has been constant. The pain is moderate. The pain is characterized as a dull aching. Note for "Foot pain": no knwon injury 06-03-2015 Unclassified (3 sources) Foot pain - The pain is in the left foot. The onset of the foot pain was sudden following no specific incident and has been occurring in a persistent pattern for 1 month. The course has been constant. The pain is moderate. The pain is characterized as a dull aching. The pain is aggravated by prolonged standing. The pain has been relieved by rest (and elevation.). The symptoms have been associated with pain in ankle, warmth and erythema (and swelling.). Note for "Foot pain": Has pain on top of foot and on both sides of the ankle. Had some problems in past with pain in toes. Thought it was gout butnever diagnosed. reviewed by B 05-11-2015 Unclassified (3 sources) Cold Symptoms - Symptoms include sneezing, nasal congestion, runny nose, sore throat, scratchy throat, dry cough and productive cough. The onset was sudden 3 month(s) ago. The symptoms occur constantly. The patient describes this as moderate in severity and unchanged. The patient is not currently being treated for this problem. Risk factors do not include child in daycare or smoking. The patient has not been exposed to an individual with a cough, an individual with an upper respiratory infection, an individual with similar symptoms, an individual with strep or secondhand smoke. Note for "Upper respiratory infection": diarrhea also On November 25 he was treated w Augmentin for possible sinusitis and then on 12/23 was treated with steroids. Steroid did not help nor did he worsen. 02-04-2015 Unclassified (3 sources) Cold Symptoms - Symptoms include sneezing, nasal congestion, runny nose, productive cough, chills, general malaise and facial pain, but do not include ear pain or sore throat. The onset was sudden 2 week(s) ago. The symptoms occur constantly. The patient describes this as moderate in severity and worsening. Medical history includes seasonal allergies. Note for "Upper respiratory infection": Was treated 11-25-14 with Augmentin for diagnosis of sinusitis. Symptoms improved after that round of antibiotics. reviewed by [facility] 12-23-2014 Unclassified (3 sources) Body cramping - Continues with frequent cramping of hands and legs for the past couple of months with no improvement. Also complains of increase in fatigue for a couple of months. I had him stop his Statin drug but that did not help sx. Sx are worsening.he is also concerned about sinus infection ( he gets them often ) 11-25-2014 Unclassified (3 sources) Hand and Leg cramping - Pt here today because he will get cramps in hands and legs. This has been going on for years but cramping has really intensified over the past week or two. Cramps in hands is mainly in fingers and legs it is mainly between knees and thighs. Fingers will "lock" at times. No swelling. Cramping is anytime of day but seems worse at night. Pt sleeps in a recliner due to back issues and not sure if this is related to cramping. Walking helps the cramps in legs and straightening out and stretching helps relieve the cramps in fingers. reviewed by [facility] 10-17-2014 Unclassified (3 sources) Rash - The onset of the rash has been acute and has been occurring in a persistent pattern for 1 week. The course has been increasing. The rash is characterized as red, weeping and raised above the skin. The rash was first seen on the upper extremity. It spread to the lower extremity. There has been associated itching and erythema. There has been no associated fever. Note for "Rash": he had been scheduled for hernia repair last Fri per Dr. Jonas Barahona and was cancelled d/t where rash was on the arm at the site of IV access...wants treated so they can proceed with surgery October 20, requesting injection as he has been treated with this in the past 10-07-2014 Unclassified (3 sources) Hernia - The onset of the hernia has been acute and has been occurring in a persistent pattern. The course has been increasing. The hernia is described as mild. The hernia is described as being located in the groin-right. Note for "Hernia": Right side is worsening. 08-25-2014 Unclassified (3 sources) Abdominal pain - The onset of the abdominal pain has been acute and has been occurring in a persistent pattern for 2 months. The course has been constant. The pain is described as a moderate fullness and cramping. The pain is located in the right upper quadrant and epigastrium and does not radiate. The symptoms are aggravated by meals (1/2 to 1 hour after eating) but are relieved by passing flatus. The symptoms have been associated with bloating, while the symptoms have not been associated with chest pain, constipation, diarrhea, dysuria or nausea. Note for "Abdominal pain": No specific food triggers. 05-13-2014 Unclassified (3 sources) Groin pain - Right side groin pain for 1 week with no improvement. Pain is worse with cough. No fever. He would occassionally pain there in thepast but not this long or severe. He was couighing recently due to sinus illness. 03-10-2014 Unclassified (3 sources) Cold Symptoms - Symptoms include nasal congestion, runny nose, productive cough, headache and facial pain, but do not include ear pain or sore throat. The onset was gradual 1 month(s) ago. The symptoms occur constantly. The patient describes this as moderate in severity and worsening. The patient has not been exposed to an individual with similar symptoms. Medical history includes seasonal allergies and recurrent sinusitis, but patient denies history of recurrent strep pharyngitis, asthma, tonsillectomy or recurrent ear infections. Note for Upper respiratory infection": has been using nasocort. reviewed by [facility] 03-03-2014 Unclassified (3 sources) Discuss Migraines - Pt here this morning to discuss his headaches. Was diagnosed with "Silent Migraines" back around 1999. Is currently on Butalbital Compound 50-325 for these which has been working well for him. However Migraines have been getting more frequent. He used to go months without having any. Has had one 4 days in a row this week but none so far today. As long as he takes his Butalbital headache is gone within a half hour. What is concerning to him is an increase in visual problems. He used to just see "blank spaces" like in a jig saw puzzle when he looks in front of him while now he will also experieince some dark blinking spots where pieces of puzzle are missing. reviewed by [facility] 11-01-2013 Unclassified (3 sources) Cold Symptoms - Symptoms include nasal congestion, runny nose (bloody drainage for a couple of days), productive cough (worse at night), headache and facial pain, but do not include ear pain, sore throat or fever. The onset was gradual 2 month(s) ago. The symptoms occur constantly. The patient describes this as moderate in severity and unchanged. Current treatment includes allergy medications and nasal corticosteroids. The patient has not been exposed to an individual with similar symptoms. Medical history includes seasonal allergies and recurrent sinusitis, but patient denies history of recurrent strep pharyngitis, asthma, tonsillectomy or recurrent ear infections. Note for Upper respiratory infection": Says he gets this every year. Did get a flu shot this year. 07-11-2013 Unclassified (3 sources) Groin pain - Left side groin pain for one week and getting worse. No swelling. No known injury.No previous instance. It is worse with prolonged standing 05-29-2013 Unclassified (3 sources) Cold Symptoms - Symptoms include sneezing, nasal congestion, runny nose, sore throat, productive cough, headache and facial pain, but do not include ear pain. The onset was gradual 1 month(s) ago. The patient describes this as moderate in severity and worsening. Current treatment includes non-prescription cold medication and a decongestant nasal spray. The patient has not been exposed to an individual with similar symptoms. Medical history includes recurrent sinusitis, but patient denies history of seasonal allergies, recurrent strep pharyngitis, asthma, tonsillectomy or recurrent ear infections. Note for Upper respiratory infection": reviewed by [facility] 2012 Unclassified (3 sources) Multiple complaints - The onset of the complaints has been variable , and they have been occurring in a persistent pattern for years. The course has been increasing. Note for "Multiple complaints": Would like to discuss problems with urinary incontinence and also would like to discuss impotence and options for medication. Pt does get partial erections, libido is strong. Pt tried Viagara and Cialis in past and were partially effective and pt had SE of flushing , SOB, no headaches.Pt gets up twice at night to urinate. During the day he gets urgency but no loss of control. 05-09-2012 Unclassified (3 sources) PSA Testing - Pt here because it has been awhile since he has had a PSA test done. Takes OTC Prostalex daily in the eveining and has helped his symptoms. Rarely has to get up at night particualry past few night. Does have some episodes where he is up frequently but comes and goes. Also taking red yeast rice and lovastatin. He does not want to have his cholesterol checked today however- will get that done in September. Just wants evaluated. reviewed by [facility] 07-15-2011 Unclassified (3 sources) Diarrhea - The onset of the diarrhea has been acute and has been occurring in a persistent pattern for 3 days. The course has been increasing. The stools are watery. The frequency of bowel movements has been 15 per day. The symptoms have been associated with fever (low grade) and nausea. Note for "Diarrhea": Has tried Imodium and yogurt. Also had insect bite 10 days ago on left knee. reviewed by [facility] 01-12-2011 Unclassified (3 sources) F/u Jpint Pain - Pt saw [facility] last month for jpint pain. Did labs and gave Kenalog injection. Injection did not really help. Pain is mostly and fingers. He also has some in toes. He says that joints are starting to "twist". Can use them but painful. He is here to discuss medication that he can use. Labs on chart. reviewed by [facility] 11-26-2010 Unclassified (3 sources) Joint Complaints multiple - The onset of the joint complaints has been acute , and they have been occurring in an increasing pattern for 10 years. The course has been worsening. The joint complaints are described as a moderate pain, swelling, stiffness and tenderness. The pain is located in the left shoulder, right shoulder, left elbow, right elbow, left hand, right hand, left knee, right knee, left ankle, right ankle, left foot (and left great toe) and right foot. There are no aggravating factors. The joint complaints are relieved by NSAIDs. Associated symptoms include muscle cramps. Note for "Joint Complaints multiple": Symptoms have gotten worse over the weekend. 11-09-2010 Unclassified (3 sources) Cold Symptoms - Symptoms include nasal congestion, runny nose (noted blood clots last night when blowing nose), sore throat (earlier), productive cough (yellow mucus), fever, headache and facial pain, but do not include sneezing, ear pain, wheezing, chills or general malaise. The onset was gradual 5 day(s) ago. The symptoms occur constantly. The patient describes this as moderate in severity and worsening. Current treatment includes non-prescription cold medication, cough suppressants and NSAIDs (otc meds are ineffective). The patient has been exposed to an individual with an upper respiratory infection. Medical History includes seasonal allergies and recurrent sinusitisPatient denies history of asthma (has had pneumona x 2 (last pneumovax at age 66)). 06-03-2010 Unclassified (3 sources) Unspecified Diagnosis 06-01-2010 Unclassified (3 sources) vertigo - almost passed out today, nausea, symptoms started at 11:30am today, just came on him all of a sudden. Ears have been very sensitve the last 2 days, "hollow sounding". significant history: cabg x 4 in 2006, H/O cad, Rt carotid endarterectomy 2000, last carotid doppler [id number] Unclassified (1 source) Establish care - Pt transfer back to office from [place]. Here to establish care. 02-12-2025 Unclassified (1 source) Transition into care - The patient is transitioning into care from a hospital and a summary of care was reviewed. 05-28-2019 Unclassified (1 source) [ADDITIONAL REASON] Follow up consultation - The patient is here to follow-up after hospitalization ([facility] with altered mental status.) on : (05-17-19 to 05-21-19). Note for "Consultation follow-up": Is feeling better. Continues with memory issues now and then. MRI of brain , EEG and LP were all normal. I had sen hoim for this as well prior to hospitailization , felt it may have been due to Venlafaxine so we stopped it. Aricept was started. 05-28-2019 Unclassified (1 source) Cold Symptoms - Symptoms include sneezing, nasal congestion, runny nose (blowing out clear.), scratchy throat (and feels he is having quite a bit of drainage down throat.), productive cough (expectorating thick yellowish phlegm at times.), headache and facial pain (above left eye.), but do not include wheezing (and no SOB.) or fever (and no temperature in office.). The onset was gradual 3 day(s) ago (while drving up from the [facility] The patient describes this as worsening. Current treatment includes non-prescription cold medication (nasal rinse and 2 nasal spray. Using Flonase and using another nasal spray. Also using Ipratropium Anderson 0.06 . Also getting an allergy shot weekly.). Risk factors do not include smoking. Note for "Upper respiratory infection": No one else at home sick. reviewed by [facility] 09-02-2016 Unclassified (1 source) [ADDITIONAL REASON] Numbness in finger - Pt also has been experiencing some numbness in tip of left index finger. Some swelling noted and pt states has some hx of arthritis . Not using anything for this at this time. reviewed by [facility] 09-02-2016 Unclassified (2 sources) Fatigue - The onset of the fatigue has been gradual and has been occurring in an intermittent pattern for 4 months. The course has been increasing. There has been no associated chest pain, chills, cough, dark urine, dyspnea or fever. Note for "Fatigue": Seems to become more tired as day progresses. He wonders if could be related to his Celiac dx or arthritis. reviewed by [facility] 03-07-2016 Unclassified (2 sources) [ADDITIONAL REASON] Umbilical Hernia - Pt here today because he has an Umbilical hernia. He had seen [facility] 01/18/16 because he was cooking and spilled some hot eggplant on abdomen and had friction blister on the hernia. He was instructed to use OTC hydrocortisone cream however his got instructions confused and has been using antibiotic ointment to area. It is still red and little inflamed. Hernia is not painful but does stick out quite a bit and wonders if he needs to have this fixed.Pt also wanting to discuss arthritis pain in his hands. Has hx of generalized arthritis but hands have really flared up and would like to discuss. Fingers are swollen more on left hand than right but is having a lot of pain in his right thumb. Is currently using Aleve daily which helps some but nothing takes pain completely away. Has used Glucosamine chondroitin in past but felt that was not helping much.reviewed by [facility] 03-07-2016 Unclassified (1 source) Establish care - Patient presents today to transfer care to [facility] after moving from [place]. He states that he needs refills on medication for headache and will also require referrals to cardiology (history CAD) and urology (history prostate cancer). Patient also notes concern for a skin lesion of his gluteal region which he would like evaluated since it seems to be continually moving. 02-13-2025 Results Test Name Value Interpretation Reference Range Facility CV CAROTID STUDYon CV CAROTID STUDY [address] ? [place], [place] [address] ? Patient: SOCORRO ROSA Phone#: : 1940 Age: 84 Gender: M Pt. Type: Out Account: [id number] Location: 052 Ordering: DR. JUNIE ROY Exam Date: 03/05/2025/13:30 Family Phys: Charge Code: [id number] Physician: Knott Order #: [id number] Dose#: PROCEDURE: CAROTID FLOW STUDY COMPARISON: [facility], , CAROTID FLOW STUDY, 01/18/2017, 7:44. INDICATIONS: right sided carotid artery disease TECHNIQUE: Color duplex Doppler ultrasound and pulsed Doppler analysis were performed to evaluate the cervical carotid arteries and vertebral flow. All measurements for carotid artery narrowing or stenosis were obtained using the ipsilateral distal internal carotid artery as the reference value. DESIGN MAKER:IVIS BELL RVRodrigue RDCS PT HISTORY: Follow-up carotid stenosis; Surgery done on RT side RIGHT IMAGING FINDINGS: CCA: Mild heterogenous plaque is present. ICA: Mild heterogenous plaque without hemodynamically significant stenosis. ECA: Mild heterogenous plaque is present. Vertebral A: Antegrade flow Comments: Category: II. Less than 50% stenosis. ICA PSV less than 180cm/s. Plaque and/or intimal thickening present. LEFT IMAGING FINDINGS: CCA: Mild heterogenous plaque is present. ICA: Mild heterogenous plaque without hemodynamically significant stenosis. ECA: Mild heterogenous plaque is present. Vertebral A: Antegrade flow. Comments: Category: II Less than 50% stenosis. ICA PSV less than 180cm/s. Plaque and/or intimal thickening present. RIGHT VELOCITY RECORDINGS Prox CCA: 70.78 cm/s Prox CCA EDV: 8.46 cm/s Mid CCA: 61.48 cm/s Mid CCA EDV: 7.53 cm/s Distal CCA: 85.66 cm/s Distal CCA EDV: 6.60 cm/s ECA: 100.77 cm/s ECA EDV: 2.39 cm/s Continued Report - Page 2 of 2 Patient: SOCORRO ROSA Phone#: : 1940 Age: 84 Gender: M Pt. Type: Out Account: [id number] Location: 052 Ordering: DR. JUNIE ROY Exam Date: 03/05/2025/13:30 Family Phys: Charge Code: [id number] Physician: Knott Order #: [id number] Dose#: Prox ICA: 56.46 cm/s Prox ICA EDV: 9.95 cm/s Mid ICA: 62.04 cm/s Mid ICA EDV: 14.60 cm/s Distal ICA: 65.76 cm/s Distal ICA EDV: 18.32 cm/s Vertebral Artery: 77.05 cm/s Vertebral Artery EDV: 15.18 cm/s Subclavian Artery: 374.19 cm/s LEFT VELOCITY RECORDINGS Prox CCA: 95.86 cm/s Prox CCA EDV: 8.00 cm/s Mid CCA: 107.75 cm/s Mid CCA EDV: 13.23 cm/s Distal CCA: 88.12 cm/s Distal CCA EDV: 9.42 cm/s ECA: 110.44 cm/s ECA EDV: 7.34 cm/s Prox ICA: 85.29 cm/s Prox ICA EDV: 17.39 cm/s Mid ICA: 62.97 cm/s Mid ICA EDV: 15.53 cm/s Distal ICA: 82.50 cm/s Distal ICA EDV: 19.25 cm/s Vertebral Artery: 64.83 cm/s Vertebral Artery EDV: 11.81 cm/s Subclavian Artery: 65.72 cm/s ICA/CCA ratio Right: 1.07 Left: 0.79 CONCLUSION: 1. No hemodynamically significant stenosis Dictated by: Cheri Tobar MD on 03/05/2025 at 15:06 Approved by: Cheri Tobar MD on 03/05/2025 at 15:09 Normal [facility] BMP with eGFRon 03-03-2025 AGE 84 years Normal [facility] Comment on above: Performed By: #### 2 [id number] #### [facility],[address] [place] [address] Anion gap [Moles/Vol] 10 mmol/L Normal 10 - 20 [facility] Comment on above: Performed By: #### 2 [id number] #### [facility],[address] [place] [address] BMP with eGFR Normal [facility] Comment on above: Result Comment: CLARISSA C METABOLIC PANEL Performed By: #### 2 [id number] #### [facility],[address] [place] [address]69 Calcium [Mass/Vol] 9.0 mg/dL Normal 8.5 - 10.1 [facility] Comment on above: Performed By: #### 2 93601 #### [facility],[address] [place] [address] Chloride [Moles/Vol] 102 mmol/L Normal 98 - 107 [facility] Comment on above: Performed By: #### 2 [id number] #### [facility],[address] [place] [address]64 CO2 [Moles/Vol] 31.3 mmol/L Normal 21.0 - 32.0 [facility] Comment on above: Performed By: #### 2 02845 #### [facility],[address] [place] [address] Creatinine [Mass/Vol] 1.52 mg/dL High 0.70 - 1.30 [facility] [place] [facility] Comment on above: Performed By: #### 2 [id number] #### [facility],[address] [place] [address] 48694 eGFR 44 ML/MINUTE Low 60 - 999 [facility] Comment on above: Performed By: #### 2 11352 #### [facility],[address] [place] [address]803 eGFR(AA) 53 ML/MINUTE Low 60 - 999 [facility] Comment on above: Result Comment: ACCO RDING TO THE NATIONAL KIDNEY DISEASE EDUCATION PROGRAM(NKDE), A NORMAL eGFR IS A VALUE GREATER THAN OR EQUAL TO 60 ML/MIN/1.73 SQ METERS. CHRONIC KIDNEY DISEASE: <60mL/MIN/1.73 SQ METERS KIDNEY FAILURE: <15mL/MIN/1.73 SQ METERS THIS TEST SHOULD ONLY BE USED FOR PATIENTS 18 YEARS OF AGE AND OLDER. Performed By: #### 2 [id number] #### [facility],[address] [place] [address]370 Glucose [Mass/Vol] 111 mg/dL High 74 - 106 [facility] Comment on above: Performed By: #### 2 94548 #### [facility],[address] [place] [address] Potassium [Moles/Vol] 4.4 mmol/L Normal 3.5 - 5.1 [facility] Comment on above: Performed By: #### 2 08749 #### [facility],[address] [place] [address] 15687 Sodium [Moles/Vol] 139 mmol/L Normal 136 - 145 [facility] Comment on above: Performed By: #### 2 06273 #### [facility],[address] [place] [address] 16048 Urea nitrogen [Mass/Vol] 19 mg/dL High 7 - 18 [facility] Comment on above: Performed By: #### 2 [id number] #### [facility],[address] [place] [address]148 LIPID PROFILEon 03-03-2025 Cholesterol [Mass/Vol] 110 mg/dL Normal 0 - 240 [facility] Comment on above: Performed By: #### 2 [id number] #### [facility],[address] [place] [address] 06472 Cholesterol in HDL [Mass/Vol] 58 mg/dL Normal 40 - 60 [facility] Comment on above: Performed By: #### 2 56607 #### [facility],[address] [place] [address]6078 Cholesterol in LDL [Mass/Vol] 43 mg/dL Normal 0 - 129 [facility] Comment on above: Performed By: #### 2 86396 #### [facility],[address] [place] [address] 24866 Cholesterol.total/Cho lesterol in HDL [Mass ratio] 1.9 {ratio} Normal 0.0 - 5.0 [facility] Comment on above: Performed By: #### 2 02631 #### [facility],[address] [place] [address] 08599 Lipid 1996 panel Normal [facility] Comment on above: Result Comment: LIPI D PROFILE Performed By: #### 2 [id number] #### [facility],[address] [place] [address] 83638 Triglyceride [Mass/Vol] 43 mg/dL Normal 0 - 150 [facility] Comment on above: Performed By: #### 2 74895 #### [facility],[address] [place] [address] 94304 SARS CoV 2 RNA(COVID 19), [facility] 02-11-2021 SARS CoV 2 RNA Detected Abnormal NOT DETECTED [facility] Comment on above: Result Comment: A Detected result indicates that the patient's specimen was positive for SARS-CoV-2 RNA. Test Method: Nucleic Acid Amplification Test including reverse physician executive polymerase chain reaction (RT-PCR and physician executive mediated amplification (TMA). The test method meets the [place] Centers for Disease Control and prevention (CDC) pre departure and arrival requirement for viral test for COVID-19 dated July 16, 2020. Testing requirements for traveling may change with time. The patient is responsible for determining the test requirements for each nation while they are traveling. This test has been authorized by the FDA under an Emergency Use Authorization (EUA) for use by authorized laboratories. Please review the "Fact Sheets" and FDA authorized labeling available for health care providers and patients using the following websites: [email or web address]/Covid-19/HCP/NAAT/fact-she [email or web address]/home/Covid-19/Patients/NAAT/ fact-sheet2 Due to the current public health emergency, [facility] is accepting samples from appropriate clinical sources collected using wide variety of swabs and transport media for COVID-19. Not detected test results derived from specimens received in non- commercially manufactured viral collection kits or those not yet authorized by FDA for COVID-19 testing should be cautiously evaluated and take extra precautions such as such as additional clinical monitoring, including collection of an additional specimen. Additional information about COVID-19 can be found at the [facility] website: [email or web address]. Performed By: #### 3 [id number] #### [facility] [place] [address] Sprinkler Tender: Nima Montero MD Laboratory - Microbiology an d Antimicrobial susceptibilityon 02-10-2021 SARS-CoV-2 (COVID-19) RNA PASCALE+probe Ql (Unsp spec) Detected Abnormal [facility]; [facility] COMPREHENSIVE METABOLIC [facility] 01-09-2021 Albumin [Mass/Vol] 4.7 g/dL Normal 3.6-5.1 [facility] Comment on above: Performed By: #### 5 363, 95904, 04555, 7600 #### [facility] [place] [address] Sprinkler Tender: Nima Montero MD Albumin/Globulin [Mass ratio] 1.8 {ratio} Normal 1.0-2.5 [facility] Comment on above: Performed By: #### 5 363, 51358, 30821, 7600 #### [facility] [place] [address] Sprinkler Tender: Nima Montero MD ALP [Catalytic activity/Vol] 39 U/L Normal 35-144 [facility] Comment on above: Performed By: #### 5 363, 56405, 28533, 7600 #### [facility] [place] [address] Sprinkler Tender: Nima Montero MD ALT [Catalytic activity/Vol] 30 U/L Normal 9-46 [facility] Comment on above: Performed By: #### 5 363, 06916, 81471, 7600 #### [facility] [place] [address] Sprinkler Tender: Nima Montero MD AST [Catalytic activity/Vol] 23 U/L Normal 10-35 [facility] Comment on above: Performed By: #### 5 363, 22441, 83550, 7600 #### [facility] [place] [address] Sprinkler Tender: Nima Montero MD Bilirubin [Mass/Vol] 0.4 mg/dL Normal 0.2-1.2 [facility] Comment on above: Performed By: #### 5 363, 68894, 72642, 7600 #### [facility] [place] [address] Sprinkler Tender: Nima Montero MD Calcium [Mass/Vol] 9.8 mg/dL Normal 8.6-10.3 [facility] Comment on above: Performed By: #### 5 363, 62328, 88505, 7600 #### [facility] [place] [address] Sprinkler Tender: Nima Montero MD Chloride [Moles/Vol] 103 mmol/L Normal 98-110 [facility] Comment on above: Performed By: #### 5 363, 29908, 39185, 7600 #### [facility] [place] [address] Sprinkler Tender: Nima Montero MD CO2 [Moles/Vol] 28 mmol/L Normal 20-32 [facility] Comment on above: Performed By: #### 5 363, 59742, 46077, 7600 #### [facility] [place] [address] Sprinkler Tender: Nima Montero MD Creatinine [Mass/Vol] 1.57 mg/dL High 0.70-1.[address] [facility] Comment on above: Result Comment: For patients >49 years of age, the reference limit for Creatinine is approximately 13% higher for people identified as -British. Performed By: #### 5 363, 15902, 77567, 7600 #### [facility] [address] [place] [address] Sprinkler Tender: Nima Montero MD eGFR NON-AFR. INDIAN 41 mL/min/1.73m2 Low > OR = 60 [facility] Comment on above: Performed By: #### 5 363, 76048, 27387, 7600 #### [facility] [address], [address] [place] [address] Sprinkler Tender: Nima Montero MD GFR/1.73 sq M.predicted among blacks MDRD (S/P/Bld) [Vol rate/Area] 48 mL/min/{1.73_m2} Low > OR = 60 [facility] Comment on above: Performed By: #### 5 363, 00344, 86700, 7600 #### [facility] [place] [address] Sprinkler Tender: Nima Montero MD Globulin (S) [Mass/Vol] 2.6 g/dL Normal 1.9-3.7 [facility] Comment on above: Performed By: #### 5 363, 45967, 96720, 7600 #### [facility] [place] [address] Sprinkler Tender: Nima Montero MD Glucose [Mass/Vol] 114 mg/dL High 65-99 [facility] Comment on above: Result Comment: Fasting reference interval For someone without known diabetes, a glucose value between 100 and 125 mg/dL is consistent with prediabetes and should be confirmed with a follow-up test. Performed By: #### 5 363, 58369, 01437, 7600 #### [facility] [address], [address] [place] [address] Sprinkler Tender: Nima Montero MD Potassium [Moles/Vol] 4.9 mmol/L Normal 3.5-5.[address] [facility] Comment on above: Performed By: #### 5 363, 51694, 78304, 7600 #### [facility] [place] [address] Sprinkler Tender: Nima Montero MD Protein [Mass/Vol] 7.3 g/dL Normal 6.1-8.1 [facility] Comment on above: Performed By: #### 5 363, 51868, 42664, 7600 #### [facility] [place] [address] Sprinkler Tender: Nima Montero MD Sodium [Moles/Vol] 138 mmol/L Normal 135-146 [facility] Comment on above: Performed By: #### 5 363, 66612, 53786, 7600 #### [facility] of [address], [address] [place] [address] Sprinkler Tender: Nima Montero MD Urea nitrogen [Mass/Vol] 28 mg/dL High 7-25 [facility] Comment on above: Performed By: #### 5 363, 75345, 62623, 7600 #### [facility] of [address], [address] [place] [address] Sprinkler Tender: Nima Montero MD Urea nitrogen/Creatinine [Mass ratio] 18 mg/mg Normal 6-22 [facility] Comment on above: Performed By: #### 5 363, 13653, 99333, 7600 #### [facility] [place] [address] Sprinkler Tender: Nima Montero MD LIPID PANEL, [facility] 07-2 Cholesterol [Mass/Vol] 126 mg/dL Normal <200 [facility] Comment on above: Performed By: #### 5 363, 60742, 60058, 7600 #### [facility] [place] [address] Sprinkler Tender: Nima Montero MD Cholesterol in HDL [Mass/Vol] 60 mg/dL Normal > OR = 40 [facility] Comment on above: Performed By: #### 5 363, 99992, 27657, 7600 #### [facility] [place] [address] Sprinkler Tender: Nima Montero MD Cholesterol in LDL [Mass/Vol] 47 mg/dL Normal [facility] Comment on above: Result Comment: Refe rence range: <100 Desirable range <100 mg/dL for primary prevention; <70 mg/dL for patients with CHD or diabetic patients with > or = 2 CHD risk factors. LDL-C is now calculated using the Roge calculation, which is a validated novel method providing better accuracy than the Friedewald equation in the estimation of LDL-C. Lars GANN et al. PALOMA. 2013;310(19): 0687-4638 (http://education.[employer]/faq/TVI708) Performed By: #### 5 363, 94237, 44756, 7600 #### [facility] [address], [address] [place] [address] Sprinkler Tender: Nima Montero MD Cholesterol.total/Cho lesterol in HDL [Mass ratio] 2.1 {ratio} Normal <5.0 [facility] Comment on above: Performed By: #### 5 363, 33595, 04149, 7600 #### [facility] [place] [address] Sprinkler Tender: Nima Montero MD NON HDL CHOLESTEROL 66 mg/dL (calc) Normal <130 [facility] Comment on above: Result Comment: For patients with diabetes plus 1 major ASCVD risk factor, treating to a non-HDL-C goal of <100 mg/dL (LDL-C of <70 mg/dL) is considered a therapeutic option. Performed By: #### 5 363, 70198, 28133, 7600 #### [facility] [address], [address] [place] [address] Sprinkler Tender: Nima Montero MD Triglyceride [Mass/Vol] 107 mg/dL Normal <150 [facility] Comment on above: Performed By: #### 5 363, 69302, 78382, 7600 #### [facility] [place] [address] Sprinkler Tender: Nima Montero MD PSA, TOTALon 01-09-2021 PSA, TOTAL 0.1 ng/mL Normal < OR = 4.0 [facility] Comment on above: Result Comment: The total PSA value from this assay system is standardized against the WHO standard. The test result will be approximately 20% lower when compared to the equimolar-standardized total PSA (Ephraim Jasper). Comparison of serial PSA results should be interpreted with this fact in mind. This test was performed using the Siemens chemiluminescent method. Values obtained from different assay methods cannot be used interchangeably. PSA levels, regardless of value, should not be interpreted as absolute evidence of the presence or absence of disease. Performed By: #### 5 363, 82854, 84481, 7600 #### [facility] [address], [address] [place] [address] Sprinkler Tender: Nima Montero MD VITAMIN D,25-OH,TOTAL,IAon 0 01-09-2021 VITAMIN D,25-OH,TOTAL,IA 74 ng/mL Normal 30-100 [facility] Comment on above: Result Comment: Kelsea min D Status 25-OH Vitamin D: Deficiency: <20 ng/mL Insufficiency: 20 - 29 ng/mL Optimal: > or = 30 ng/mL For 25-OH Vitamin D testing on patients on D2-supplementation and patients for whom quantitation of D2 and D3 fractions is required, the QuestAssureD(TM) 25-OH VIT D, (D2,D3), LC/MS/MS is recommended: order code 64915 (patients >2yrs). See Note 1 Note 1 For additional information, please refer to http://education.[employer]/faq/LAJ889 (This link is being provided for informational/ educational purposes only.) Performed By: #### 5 363, 60270, 18612, 7600 #### [facility] [address], [address] [place] [address] Sprinkler Tender: Nima Montero MD Laboratory - Chemistry and C hemistry - challengeon 01-08-2021 Albumin [Mass/Vol] 4.7 g/dL Normal 3.6 - 5.1 g/dL [facility], [facility].; [facility] Albumin/Globulin [Mass ratio] 1.8 {ratio} Normal 1.0 - 2.5 [facility], [facility].; [facility], [facility]. ALP [Catalytic activity/Vol] 39 U/L Normal 35 - 144 U/L [facility], [facility].; [facility], [facility]. ALT [Catalytic activity/Vol] 30 U/L Normal 9 - 46 U/L [facility], [facility].; [facility], [facility]. AST [Catalytic activity/Vol] 23 U/L Normal 10 - 35 U/L [facility], [facility].; [facility], [facility]. Bilirubin [Mass/Vol] 0.4 mg/dL Normal 0.2 - 1 .2 mg/dL [facility].; [facility], [facility]. Calcium [Mass/Vol] 9.8 mg/dL Normal 8.6 - 10. 3 mg/dL [facility], [facility].; [facility], [facility]. Chloride [Moles/Vol] 103 mmol/L Normal 98 - 11 0 mmol/L [facility].; [facility], [facility]. Cholesterol [Mass/Vol] 126 mg/dL Normal [facility], [facility].; [facility], [facility]. Cholesterol in HDL [Mass/Vol] 60 mg/dL Normal [facility].; [facility], [facility]. Cholesterol in LDL [Mass/Vol] 47 mg/dL Normal [facility], [facility].; [facility], [facility]. CO2 [Moles/Vol] 28 mmol/L Normal 20 - 32 mmol/L [facility].; [facility], [facility]. Creatinine [Mass/Vol] 1.57 mg/dL Abnormal 0.70 - 1.11 mg/dL [facility], [facility].; [facility], [facility]. GFR/1.73 sq M.predicted among blacks MDRD (S/P/Bld) [Vol rate/Area] 48 mL/min/{1.73_m2} Abnormal [facility], [facility].; [facility], [facility]. Glucose [Mass/Vol] 114 mg/dL Abnormal 65 - 99 mg/dL [facility].; [facility], [facility]. Potassium [Moles/Vol] 4.9 mmol/L Normal 3.5 - 5.3 mmol/L [facility], [facility].; [facility], [facility]. Protein [Mass/Vol] 7.3 g/dL Normal 6.1 - 8.1 g/dL [facility], [facility].; [facility]. Sodium [Moles/Vol] 138 mmol/L Normal 135 - 146 mmol/L [facility]; [facility] Triglyceride [Mass/Vol] 107 mg/dL Normal [facility]; [facility] Urea nitrogen [Mass/Vol] 28 mg/dL Abnormal 7 - 25 mg/dL [facility].; [facility] Urea nitrogen/Creatinine [Mass ratio] 18 mg/mg Normal 6 - 22 [facility]; [facility] No Panel Informationon 01-08 CHOL/HDLC RATIO 2.1 Normal [facility]; [facility] eGFR NON-AFR. INDIAN 41 Abnormal [facility]; [facility] GLOBULIN 2.6 Normal 1.9 - 3.7 [facility]; [facility] NON HDL CHOLESTEROL 66 Normal [facility]; [facility] PSA, TOTAL 0.1 ng/mL Normal [facility]; [facility] VITAMIN D,25-OH,TOTAL,IA 74 ng/mL Normal 30 - 100 ng/mL [facility]; [facility] No Panel Informationon 12-04 FECAL GLOBIN BY IMMUNOCHEM. (MEDICARE) SEE NOTE Normal [facility] Laboratory - Chemistry and C hemistry - challengeon 11-19-2019 Albumin [Mass/Vol] 4.2 g/dL Normal 3.6 - 5.1 g/dL [facility]; [facility] [employer] [facility]. Albumin/Globulin [Mass ratio] 1.9 {ratio} Normal 1.0 - 2.5 [facility]; [facility]. ALP [Catalytic activity/Vol] 49 U/L Normal 35 - 144 U/L [facility].; [facility] [employer]. ALT [Catalytic activity/Vol] 25 U/L Normal 9 - 46 U/L [facility].; [facility] [employer]. AST [Catalytic activity/Vol] 22 U/L Normal 10 - 35 U/L [facility], [facility].; [facility], [facility]. Bilirubin [Mass/Vol] 0.3 mg/dL Normal 0.2 - 1 .2 mg/dL [facility], [facility].; [facility], [facility]. Calcium [Mass/Vol] 9.2 mg/dL Normal 8.6 - 10. 3 mg/dL [facility], [facility].; [facility], [facility]. Chloride [Moles/Vol] 105 mmol/L Normal 98 - 11 0 mmol/L [facility], [facility].; [facility] Cholesterol [Mass/Vol] 116 mg/dL Normal [facility], [facility].; [facility], [facility]. Cholesterol in HDL [Mass/Vol] 58 mg/dL Normal [facility], [facility].; [facility], [facility]. Cholesterol in LDL [Mass/Vol] 45 mg/dL Normal [facility], [facility].; [facility], [facility]. CO2 [Moles/Vol] 30 mmol/L Normal 20 - 32 mmol/L [facility], [facility].; [facility] Creatinine [Mass/Vol] 1.53 mg/dL Abnormal 0.70 - 1.18 mg/dL [facility], [facility].; [facility], [facility]. GFR/1.73 sq M.predicted among blacks MDRD (S/P/Bld) [Vol rate/Area] 49 mL/min/{1.73_m2} Abnormal [facility], [facility].; [facility] Glucose [Mass/Vol] 105 mg/dL Abnormal 65 - 99 mg/dL [facility].; [facility] Potassium [Moles/Vol] 4.1 mmol/L Normal 3.5 - 5.3 mmol/L [facility], [facility].; [facility] Protein [Mass/Vol] 6.4 g/dL Normal 6.1 - 8.1 g/dL [facility], [facility].; [facility] Sodium [Moles/Vol] 141 mmol/L Normal 135 - 146 mmol/L [facility], [facility].; [facility] Triglyceride [Mass/Vol] 53 mg/dL Normal [facility].; [employer]. Urea nitrogen [Mass/Vol] 25 mg/dL Normal 7 - 25 mg/dL [facility] [employer]. Urea nitrogen/Creatinine [Mass ratio] 16 mg/mg Normal 6 - 22 [facility].; [employer]. No Panel Informationon 11-18 CHOL/HDLC RATIO 2.0 Normal [facility] [employer]. eGFR NON-AFR. INDIAN 43 Abnormal [facility] [employer]. GLOBULIN 2.2 Normal 1.9 - 3.7 [facility].; [employer]. NON HDL CHOLESTEROL [address] [facility] [employer] [facility].; [employer]. MISCNBon 06-25-2019 Misc. lab Send Out (Non Blood) See Comments Normal [facility] ([place]) Comment on above: Order Comment: CSF 1 4-3-3 protein, Tau Protein, RT QUIC Result Comment: Comp lete reference lab report scanned to EMR. Performed By: #### L AC, CBC, ADIFF, ANEU, BMP, GFR, TROPI, ERDS #### [place] [address] B1WBon 05-27-2019 Vitamin B1 (TDP), Whole Blood 162.7 nmol/L Normal 84.0-213.0 [facility] ([place]) Comment on above: Result Comment: This assay measures the concentration of thiamine diphosphate (TDP), the primary active form of vitamin B1. Approximately 90 percent of vitamin B1 present in whole blood is TDP. Thiamine and thiamine monophosphate, which comprise the remaining 10 percent, are not measured. This test was developed and its performance characteristics determined by [facility]'s [facility] [place] ( [facility]). It has not been cleared or approved by the FDA. [facility] is regulated under CLIA as qualified to perform high complexity testing. This test is used for clinical purposes. It should not be regarded as investigational or for research. Performed By: [facility] [address] [place] [address] [employer] Supervisor: Kemar Portillo III, M.D. CLIA#: [id number] Phone#: Performed By: #### L AC, CBC, ADIFF, ANEU, BMP, GFR, TROPI, ERDS #### [address] [address] MISCon 05-27-2019 [facility]. Send Out See Comments [facility] ([place]) Comment on above: Order Comment: Paran eoplastic panel Result Comment: Comp lete reference lab report scanned to EMR. Performed By: #### L AC, CBC, ADIFF, ANEU, BMP, GFR, TROPI, ERDS #### [facility] [address] [place] [id number] CWESTGon 05-24-2019 West Nile IgG CSF 0.12 [facility] ([place]) Comment on above: Result Comment: Refe rence range: <=1.29 Unit: IV (NOTE) INTERPRETIVE INFORMATION: West Nile Virus Ab IgG by SPEEDY, CSF 1.29 IV or less ....... Negative: No significant level of West Nile virus IgG antibody detected. 1.30 - 1.49 IV ........ Equivocal: Questionable presence of West Nile virus IgG antibody detected. Repeat testing in 10-14 days may be helpful. 1.50 IV or greater .... Positive: Presence of IgG antibody to West Nile virus detected, suggestive of current or past infection. This test is intended to be used as a semi-quantitative means of detecting West Nile virus-specific IgG in CSF samples in which there is a clinical suspicion of West Nile Virus infection. This test should not be used solely for quantitative purposes, nor should the results be used without correlation to clinical history or other data. Because other members of the Flaviviridae family, such as [place] encephalitis virus, show extensive cross-reactivity with West Nile virus, serologic testing specific for these species should be considered. The detection of antibodies to West Nile virus in cerebrospinal fluid may indicate central nervous system infection. However, consideration must be given to possible contamination by blood or transfer of serum antibodies across the blood-brain barrier. Test developed and characteristics determined by [employer]. See Compliance Statement B: [employer]CS Performed by [employer], [address] [place] [id number] [email or web address] Arie Goldsmith MD, Lab. Director Performed By: #### L AC, CBC, ADIFF, ANEU, BMP, GFR, TROPI, ERDS #### [address] [address] CCSFon 05-23-2019 [facility] . MICRO - Microbiology PROCEDURE: Culture Cerebrospinal Fluid with Gram Stain [*1] SOURCE: Cerebrospinal Fluid BODY SITE: COLLECTED DATE/TIME: 05/18/2019 15:07 EST RECEIVED DATE/TIME: 05/20/2019 14:18 EST START DATE/TIME: 05/20/2019 14:18 EST FREE TEXT SOURCE: FINAL REPORTS Final Report [] Verified Date/Time/Personnel: 05/23/2019 07:38 EST No growth at 48 hours. PRELIMINARY REPORTS Preliminary Report [] Verified Date/Time/Personnel: 05/21/2019 10:21 EST No growth to date STAINS GS [] Verified Date/Time/Personnel: 05/20/2019 15:12 EST Sedimented No organisms seen. Performing Locations *1: This test was performed at: [facility], [address] [place] [address], [address] [place] [address] ([place]) Comment on above: Performed By: #### L AC, CBC, ADIFF, ANEU, BMP, GFR, TROPI, ERDS #### [address] [address] LYMECSFon 05-23-2019 Lyme Abs Total, CSF 0.11 Normal [facility] ([place]) Comment on above: Result Comment: Refe rence range: <=0.99 Unit: PAWEL (NOTE) INTERPRETIVE INFORMATION: Borrelia burgdorferi Abs, SPEEDY, CSF 0.99 PAWEL or less: ......... Negative - Antibody to B. burgdorferi not detected. 1.00 - 1.20 PAWEL ........... Equivocal - Repeat testing in 10-14 days may be helpful. 1.21 PAWEL or greater: ...... Positive - Probable presence of antibody to B. burgdorferi detected. The detection of antibodies to B. burgdorferi in cerebrospinal fluid may indicate central nervous system infection. However, consideration must be given to possible contamination by blood or transfer of serum antibodies across the blood-brain barrier. Current CDC recommendations for the serologic diagnosis of Lyme disease are to screen with a polyvalent SPEEDY test and confirm equivocal and positive results with immunoblot. Both IgM and IgG immunoblots should be performed on samples less than 4 weeks after appearance of erythema migrans. Only IgG immunoblot should be performed on samples greater than 4 weeks after the disease onset. IgM immunoblot in the chronic stage is not recommended and does not aid in the diagnosis of neuroborreliosis or chronic Lyme disease. Please submit requests for appropriate immunoblot testing within 10 days. Test developed and characteristics determined by [employer]. See Compliance Statement B: [employer]CS Performed by [employer], [address] [place] [id number] www.[employer] Arie Goldsmith MD, Lab. Director Performed By: #### L AC, CBC, ADIFF, ANEU, BMP, GFR, TROPI, ERDS #### [place] [address] West [facility] Centeron [facility]23 West Nile Virus IgG 0.41 Normal [facility] ([place]) Comment on above: Result Comment: Refe rence range: <=1.29 Unit: IV (NOTE) INTERPRETIVE INFORMATION: West Nile Virus Ab, IgG by SPEEDY, Serum 1.29 IV or less ........ Negative - No significant level of West Nile virus IgG antibody detected. 1.30 - 1.49 IV ......... Equivocal - Questionable presence of West Nile virus IgG antibody detected. Repeat testing in 10-14 days may be helpful. 1.50 IV or greater ..... Positive - Presence of IgG antibody to West Nile virus detected, suggestive of current or past infection. This test is intended to be used as a semi-quantitative means of detecting West Nile virus-specific IgG in serum samples in which there is a clinical suspicion of West Nile virus infection. This test should not be used solely for quantitative purposes, nor should the results be used without correlation to clinical history or other data. Because other members of the Flaviviridae family, such as St.Alejo encephalitis virus, show extensive cross-reactivity with West Nile virus, serologic testing specific for these species should be considered. Seroconversion between acute and convalescent sera is considered strong evidence of current or recent infection. The best evidence for infection is a significant change on two appropriately timed specimens, where both tests are done in the same laboratory at the same time. Performed By: #### L AC, CBC, ADIFF, ANEU, BMP, GFR, TROPI, ERDS #### [place] [id number] [place] [id number] West Nile Virus IgM 0.02 Normal [facility] ([place]) Comment on above: Result Comment: Refe rence range: <=0.89 Unit: IV (NOTE) INTERPRETIVE INFORMATION: West Nile Virus Ab, IgM by SPEEDY, Serum 0.89 IV or less ...... Negative - No significant level of West Nile virus IgM antibody detected. 0.90-1.10 IV ......... Equivocal - Questionable presence of West Nile virus IgM antibody detected. Repeat testing in 10-14 days may be helpful. 1.11 IV or greater ... Positive - Presence of IgM antibody to West Nile virus detected, suggestive of current or recent infection. This test is intended to be used as a semi-quantitative means of detecting West Nile virus-specific IgM in serum samples in which there is a clinical suspicion of West Nile virus infection. This test should not be used solely for quantitative purposes, nor should the results be used without correlation to clinical history or other data. Because other members of the Flaviviridae family, such as St.Alejo encephalitis virus, show extensive cross-reactivity with West Nile virus, serologic testing specific for these species should be considered. Seroconversion between acute and convalescent sera is considered strong evidence of current or recent infection. The best evidence for infection is a significant change on two appropriately timed specimens, where both tests are done in the same laboratory at the same time. Performed by [employer], [address] [place] [id number] www.[email or web address] Arie Goldsmith MD, Lab. Director Performed By: #### L AC, CBC, ADIFF, ANEU, BMP, GFR, TROPI, ERDS #### [facility] [address] [place] [id number] West Nile Virus Panel Interpretation Testing is no longer included in the battery. Normal [facility] ([place]) Comment on above: Result Comment: Perf ormed By: [facility] [address] [place] [address] [employer] Supervisor: Brayan Ponce III#: [phone] Phone#: Performed By: #### L AC, CBC, ADIFF, ANEU, BMP, GFR, TROPI, ERDS #### [place] [address] Final Pathologist Review Rep camille 05-22-2019 Final Pathologist Review Report . Pathology Reports Accession: Collected Date/Time: Received Date/Time: Pathologist: [id number] 05/18/2019 13:42 EST 05/21/2019 08:30 EST DO KAM PENA Final Pathologist Review Report CLINICAL INFORMATION: BLESSING LAM DIAGNOSIS: NEGATIVE FOR MALIGNANCY SPECIMEN: CEREBROSPINAL FLUID Electronically Signed by Pathology report verified by [facility] Screened by: KS MES Electronically signed by KAM PENA DO Sign-Out Date: 05/22/2019 10:49 Performing Lab: [address] ([place]) Comment on above: Performed By: #### L AC, CBC, ADIFF, ANEU, BMP, GFR, TROPI, ERDS #### [place] [address] HMETBon 05-22-2019 Heavy Metal Scr See Comments [facility] ([place]) Comment on above: Result Comment: Comp lete reference lab report scanned to EMR. Performed By: #### L AC, CBC, ADIFF, ANEU, BMP, GFR, TROPI, ERDS #### [place] [address] [id number] 05-22-2019 HTLV 1/2 Ab Scr Negative [facility] ([place]) Comment on above: Result Comment: Refe rence range: Negative (NOTE) Based on the non-reactive anti-HTLV SPEEDY screen, the HTLV Western Blot is not indicated and therefore not performed. INTERPRETIVE INFORMATION: HTLV I/II Antibodies w/Reflex to Confirm This assay should not be used for blood donor screening, associated re-entry protocols, or for screening Human Cell, Tissues and Cellular and Tissue-Based Products (HCT/P). Performed by [employer], [facility] [address] www.[employer] Arie Goldsmith MD, Lab. Director Performed By: #### L AC, CBC, ADIFF, ANEU, BMP, GFR, TROPI, ERDS #### [place] [address] Non-Truss Puller Helper Cytology Reporton Non-Truss Puller Helper Cytology Report . Pathology Reports Accession: Collected Date/Time: Received Date/Time: Pathologist: [id number] 05/20/2019 13:42 EST 05/21/2019 15:26 EST DO KAM PENA Non-Truss Puller Helper Cytology Report CLINICAL INFORMATION: ENCEPHALOPATHY DIAGNOSIS: NEGATIVE FOR MALIGNANCY SPECIMEN: CEREBROSPINAL FLUID GROSS DESCRIPTION: # of Monolayers: 1 Volume (ml) 1 Color: FRESH CLEAR Electronically Signed by Pathology report verified by [facility] Screened by: TOM MES Electronically signed by KAM PENA DO Sign-Out Date: 05/22/2019 10:48 Performing Lab: [address] ([place]) Comment on above: Performed By: #### L AC, CBC, ADIFF, ANEU, BMP, GFR, TROPI, ERDS #### [place] [address] LMERLYon 05-21-2019 Lyme IgG/IgM AB Negative Normal NEGAT [facility] ([place]) Comment on above: Result Comment: Abse nce of detectable Borrelia burgdorferi antibodies. A negative result does not exclude the possibility of Borrelia burgdorferi infection. If early Lyme disease is suspected, a second sample should be collected and tested two to four weeks later. Performed By: [facility] [address] [place] [address] [employer] Supervisor: Brayan Ponce III#: [phone] Phone#: Performed By: #### L AC, CBC, ADIFF, ANEU, BMP, GFR, TROPI, ERDS #### [place] [address] RPRon 05-21-2019 Reagin Ab RPR Ql (S) Non-Reactive Normal Non-Reactive [facility] ([place]) Comment on above: Result Comment: The RPR test is a non-treponemal assay useful as an aid in the diagnosis of primary and secondary syphilis. It converts to positive generally within 2 weeks after the appearance of a lesion. This test is also useful for monitoring response to antibiotic therapy. A positive RPR screening test will be followed by the FTA ABS test. False positive RPR tests may occur in 1) patients with underlying autoimmune disorders, 2) elderly patients, 3) , and 4) other conditions with abnormal serum globulins. Performed By: #### L AC, CBC, ADIFF, ANEU, BMP, GFR, TROPI, ERDS #### [place] [address] .Auto Diffon 05-20-2019 Ammonia (P) [Mass/Vol] 0.50 10 3/mcL Normal 0.09-1.40 [facility] ([place]) Comment on above: Performed By: #### L AC, CBC, ADIFF, ANEU, BMP, GFR, TROPI, ERDS #### [place] [address] Basophils (Bld) [#/Vol] 0.10 10 3/mcL Normal 0.00-0.27 [facility] ([place]) Comment on above: Performed By: #### L AC, CBC, ADIFF, ANEU, BMP, GFR, TROPI, ERDS #### [place] [address] Basophils/100 WBC (Bld) 0.5 % Normal 0.0-2.5 [facility] ([place]) Comment on above: Performed By: #### L AC, CBC, ADIFF, ANEU, BMP, GFR, TROPI, ERDS #### [address] [address] Eosinophils (Bld) [#/Vol] 0.10 10 3/mcL Normal 0.00-0.65 [facility] ([place]) Comment on above: Performed By: #### L AC, CBC, ADIFF, ANEU, BMP, GFR, TROPI, ERDS #### [address] [address] Eosinophils/100 WBC (Bld) 1.1 % Normal 0.0-6.0 [facility] ([place]) Comment on above: Performed By: #### L AC, CBC, ADIFF, ANEU, BMP, GFR, TROPI, ERDS #### [address] [address] Lymphocytes (Bld) [#/Vol] 0.80 10 3/mcL Low 0.90-4.32 [facility] ([place]) Comment on above: Performed By: #### L AC, CBC, ADIFF, ANEU, BMP, GFR, TROPI, ERDS #### [address] [address] Lymphocytes/100 WBC (Bld) 7.8 % Low 20.0-40.0 [facility] ([place]) Comment on above: Performed By: #### L AC, CBC, ADIFF, ANEU, BMP, GFR, TROPI, ERDS #### [address] [address] Monocytes/100 WBC (Bld) 4.3 % Normal 2.0-13.0 [facility] ([place]) Comment on above: Performed By: #### L AC, CBC, ADIFF, ANEU, BMP, GFR, TROPI, ERDS #### [address] [address] Neutrophils/100 WBC (Bld) 86.3 % High 50.0-75.0 [facility] ([place]) Comment on above: Performed By: #### L AC, CBC, ADIFF, ANEU, BMP, GFR, TROPI, ERDS #### [address] [address] .GFRon 05-20-2019 GFR Non- 52 ml/min/1.73sqm Normal [facility] ([place]) Comment on above: Result Comment: GFR Population mean for , Non- Americans Ages 20-29 = 116 mL/min/1.73 sq.m. Ages 30-39 = 107 mL/min/1.73 sq.m. Ages 40-49 = 99 mL/min/1.73 sq.m. Ages 50-59 = 93 mL/min/1.73 sq.m. Ages 60-69 = 85 mL/min/1.73 sq.m. Ages 70+ = 75 mL/min/1.73 sq.m. Chronic Kidney Disease: Less than 60 mL/min/1.73 square meters End Stage Renal Disease: Less than 15 mL/min/1.73 square meters Performed By: #### L AC, CBC, ADIFF, ANEU, BMP, GFR, TROPI, ERDS #### [address] [address] GFR >60 Normal [facility] ([place]) Comment on above: Result Comment: GFR Population mean for , Non- Americans Ages 20-29 = 116 mL/min/1.73 sq.m. Ages 30-39 = 107 mL/min/1.73 sq.m. Ages 40-49 = 99 mL/min/1.73 sq.m. Ages 50-59 = 93 mL/min/1.73 sq.m. Ages 60-69 = 85 mL/min/1.73 sq.m. Ages 70+ = 75 mL/min/1.73 sq.m. Chronic Kidney Disease: Less than 60 mL/min/1.73 square meters End Stage Renal Disease: Less than 15 mL/min/1.73 square meters Performed By: #### L AC, CBC, ADIFF, ANEU, BMP, GFR, TROPI, ERDS #### [place] [id number] .NEUABSon 05-20-2019 Neutrophils (Bld) [#/Vol] 9.10 10 3/mcL High 2.25-8.10 [facility] ([place]) Comment on above: Performed By: #### L AC, CBC, ADIFF, ANEU, BMP, GFR, TROPI, ERDS #### [address] [address] BMPon 05-20-2019 Calcium [Mass/Vol] 8.9 mg/dL Normal 8.4-10.1 [facility] ([place]) Comment on above: Performed By: #### L AC, CBC, ADIFF, ANEU, BMP, GFR, TROPI, ERDS #### [address] [address] Chloride [Moles/Vol] 104 mmol/L Normal 98-110 [facility] ([place]) Comment on above: Performed By: #### L AC, CBC, ADIFF, ANEU, BMP, GFR, TROPI, ERDS #### [address] [address] CO2 [Moles/Vol] 29 mmol/L Normal 22-32 [facility] ([place]) Comment on above: Performed By: #### L AC, CBC, ADIFF, ANEU, BMP, GFR, TROPI, ERDS #### [address] [address] Creatinine [Mass/Vol] 1.32 mg/dL Normal 0.60-1.40 [facility] ([place]) Comment on above: Performed By: #### L AC, CBC, ADIFF, ANEU, BMP, GFR, TROPI, ERDS #### [address] [address] Electrolyte Balance 5.0 mEq/L Normal 4.0-15.0 [facility] ([place]) Comment on above: Performed By: #### L AC, CBC, ADIFF, ANEU, BMP, GFR, TROPI, ERDS #### [address] [address] Glucose [Mass/Vol] 121 mg/dL High 82-115 [facility] ([place]) Comment on above: Performed By: #### L AC, CBC, ADIFF, ANEU, BMP, GFR, TROPI, ERDS #### [address] [address] Potassium [Moles/Vol] 3.8 mmol/L Normal 3.5-5.0 [facility] ([place]) Comment on above: Performed By: #### L AC, CBC, ADIFF, ANEU, BMP, GFR, TROPI, ERDS #### [address] [address] Sodium [Moles/Vol] 138 mmol/L Normal 136-145 [facility] ([place]) Comment on above: Performed By: #### L AC, CBC, ADIFF, ANEU, BMP, GFR, TROPI, ERDS #### [place] [address] Urea nitrogen [Mass/Vol] 29.0 mg/dL High 8.0-22.0 [facility] ([place]) Comment on above: Performed By: #### L AC, CBC, ADIFF, ANEU, BMP, GFR, TROPI, ERDS #### [place] [address] Urea nitrogen/Creatinine [Mass ratio] 22.0 ratio Normal 10.0-22.0 [facility] ([place]) Comment on above: Performed By: #### L AC, CBC, ADIFF, ANEU, BMP, GFR, TROPI, ERDS #### [address] [address] CBCon 05-20-2019 Erythrocyte distribution width (RBC) [Ratio] 13.3 % Normal 11.5-15.5 [facility] ([place]) Comment on above: Performed By: #### L AC, CBC, ADIFF, ANEU, BMP, GFR, TROPI, ERDS #### [place] [id number] Hematocrit (Bld) [Volume fraction] 42.1 % Normal 40.0-52.0 [facility] ([place]) Comment on above: Performed By: #### L AC, CBC, ADIFF, ANEU, BMP, GFR, TROPI, ERDS #### [place] [id number] Hemoglobin (Bld) [Mass/Vol] 14.1 G/dL Normal 13.0-17.5 [facility] ([place]) Comment on above: Performed By: #### L AC, CBC, ADIFF, ANEU, BMP, GFR, TROPI, ERDS #### [place] [id number] MCH (RBC) [Entitic mass] 32.3 pg Normal 27.0-33.0 [facility] ([place]) Comment on above: Performed By: #### L AC, CBC, ADIFF, ANEU, BMP, GFR, TROPI, ERDS #### [address] [address] MCHC (RBC) [Mass/Vol] 33.6 G/dL Normal 32.0-36.0 [facility] ([place]) Comment on above: Performed By: #### L AC, CBC, ADIFF, ANEU, BMP, GFR, TROPI, ERDS #### [place] [id number] MCV (RBC) [Entitic vol] 96.1 fL Normal 81.0-100.0 [facility] ([place]) Comment on above: Performed By: #### L AC, CBC, ADIFF, ANEU, BMP, GFR, TROPI, ERDS #### [place] [id number] Platelet mean volume (Bld) [Entitic vol] 6.8 fL Normal 6.4-10.5 [facility] ([place]) Comment on above: Performed By: #### L AC, CBC, ADIFF, ANEU, BMP, GFR, TROPI, ERDS #### [address] [address] Platelets (Bld) [#/Vol] 183 10 3/mcL Normal 150-450 [facility] ([place]) Comment on above: Performed By: #### L AC, CBC, ADIFF, ANEU, BMP, GFR, TROPI, ERDS #### [address] [address] RBC (Bld) [#/Vol] 4.38 10 6/mcL Low 4.50-6.00 [facility] ([place]) Comment on above: Performed By: #### L AC, CBC, ADIFF, ANEU, BMP, GFR, TROPI, ERDS #### [address] [address] WBC (Bld) [#/Vol] 10.60 10 3/mcL Normal 4.50-10.80 [facility] ([place]) Comment on above: Performed By: #### L AC, CBC, ADIFF, ANEU, BMP, GFR, TROPI, ERDS #### [address] [address] CERULon 05-20-2019 Ceruloplasmin 32.3 mg/dL Normal 22.0-58.0 [facility] ([place]) Comment on above: Performed By: #### L AC, CBC, ADIFF, ANEU, BMP, GFR, TROPI, ERDS #### [place] [id number] CRPon 05-20-2019 CRP [Mass/Vol] 0.30 mg/dL Normal <=0.80 [facility] ([place]) Comment on above: Performed By: #### L AC, CBC, ADIFF, ANEU, BMP, GFR, TROPI, ERDS #### [address] [address] CSFCTon 05-20-2019 Cells Count CSF 54 Normal [facility] ([place]) Comment on above: Performed By: #### L AC, CBC, ADIFF, ANEU, BMP, GFR, TROPI, ERDS #### [place] [address] Lymphocytes/100 WBC (Bld) 19 % Low 40-80 [facility] ([place]) Comment on above: Performed By: #### L AC, CBC, ADIFF, ANEU, BMP, GFR, TROPI, ERDS #### [address] [address] Mononuclear Cell % (csf) 81 % High 15-45 [facility] ([place]) Comment on above: Performed By: #### L AC, CBC, ADIFF, ANEU, BMP, GFR, TROPI, ERDS #### [address] [address] Clarity CSF Clear Normal [facility] ([place]) Comment on above: Performed By: #### L AC, CBC, ADIFF, ANEU, BMP, GFR, TROPI, ERDS #### [address] [address] Color CSF Colorless Normal [facility] ([place]) Comment on above: Performed By: #### L AC, CBC, ADIFF, ANEU, BMP, GFR, TROPI, ERDS #### [address] [address] Comment CSF See Below Normal [facility] ([place]) Comment on above: Result Comment: Lact ic acid is not performed on CSF containing 5 or fewer WBC/mm3. This specimen will be reviewed by the pathologist and an additional report will be issued under the prefix "OR" and cross-referenced to the Cytology specimen, if appropriate. Performed By: #### L AC, CBC, ADIFF, ANEU, BMP, GFR, TROPI, ERDS #### [place] [address] RBC CSF 0 /mm3 Normal 0-1 [facility] ([place]) Comment on above: Performed By: #### L AC, CBC, ADIFF, ANEU, BMP, GFR, TROPI, ERDS #### [place] [address] WBC (Bld) [#/Vol] 10*3/uL Normal 0-5 [facility] ([place]) Comment on above: Performed By: #### L AC, CBC, ADIFF, ANEU, BMP, GFR, TROPI, ERDS #### [place] [address] GLUSFon 05-20-2019 GLU CSF Spec CSF Normal [facility] ([place]) Comment on above: Performed By: #### L AC, CBC, ADIFF, ANEU, BMP, GFR, TROPI, ERDS #### [place] [address] Glucose CSF 68 mg/dL Normal 40-70 [facility] ([place]) Comment on above: Performed By: #### L AC, CBC, ADIFF, ANEU, BMP, GFR, TROPI, ERDS #### [place] [id number] IR LUMBAR PUNCTUREon 019 IR LUMBAR PUNCTURE ORIGINAL PROCEDURE: 1. Lumbar puncture with fluoroscopic guidance CLINICAL STATEMENT: Subacute progressive encephalopathy BOTTOM LINER: Litzy Granados PA-C FLUOROSCOPY: 27.4 sec AIR KERMA DOSE (mGY): 9.51 NEEDLE: 20G spinal needle CSF VOLUME REMOVED: 12 mL CSF APPEARANCE: Clear PUNCTURE LEVEL: L2-L3 PROCEDURE: The procedure, risks, and alternatives, were discussed and all questions were answered. Written informed consent obtained. Accompanying paperwork was verified for accuracy. Directed history and physical exam performed prior to the procedure. Medication reconciliation performed by nursing personnel. Procedure was performed using a hat, mask, sterile gown, sterile gloves, a large sterile sheet, hand hygiene and Betadine for cutaneous antisepsis. The patient was positioned prone on the table and prepped and draped in usual sterile fashion. A critical pause was performed with assisting personnel just prior to the procedure with the patient's identity confirmed using 2 identifiers, confirming procedure and site. Prior to sterile prep, a puncture site was selected and marked under fluoroscopy. 2% lidocaine was administered at the puncture site for local anesthesia. A needle was advanced into the thecal sac under fluoroscopic guidance. A documentation image was stored. Position was confirmed with flow of CSF from the needle. After the adequate volume was removed, the needle was removed. A Band-Aid was placed at the puncture site. The sample was submitted to the laboratory. COMPLICATIONS: None EBL: Minimal PATIENT CONDITION: Stable, unchanged. IMPRESSION: 1. Successful fluoroscopic guided lumbar puncture. This procedure was performed by Litzy Granados PA-C under direct supervision of Mariella Frost PA-C. Interpreted By: Griffin Clemente MD Preliminary Report By: Litzy Granados PA-C Electronically Signed By: Griffin Clemente MD Dictated Date: 05/20/2019 4:22:42 PM Prelim Date: 05/20/2019 4:23:35 PM Sign Date: 05/20/2019 4:28:37 PM Ordering Provider:Haroldo Singh [facility] ([place]) HERRERAej 05-20-2019 CSF Cryptococcus neoformans kaz Not Detected Normal Not Detected [facility]) Comment on above: Performed By: #### L AC, CBC, ADIFF, ANEU, BMP, GFR, TROPI, ERDS #### [address] [address] CSF Cytomegalovirus Not Detected Normal Not Detected A [facility] ([place]) Comment on above: Performed By: #### L AC, CBC, ADIFF, ANEU, BMP, GFR, TROPI, ERDS #### [address] [address] CSF Enterovirus Not Detected Normal Not Detected [facility] ([place]) Comment on above: Performed By: #### L AC, CBC, ADIFF, ANEU, BMP, GFR, TROPI, ERDS #### [address] [address] CSF Escherichia coli K1 Not Detected Normal Not Detected [facility] ([place]) Comment on above: Performed By: #### L AC, CBC, ADIFF, ANEU, BMP, GFR, TROPI, ERDS #### [place] [address] CSF Haemophilis influenzae Not Detected Normal Not Detected [facility] ([place]) Comment on above: Performed By: #### L AC, CBC, ADIFF, ANEU, BMP, GFR, TROPI, ERDS #### [place] [address] CSF Herpes simplex virus 1 Not Detected Normal Not Detected [facility] ([place]) Comment on above: Performed By: #### L AC, CBC, ADIFF, ANEU, BMP, GFR, TROPI, ERDS #### [place] [address] CSF Herpes simplex virus 2 Not Detected Normal Not Detected [facility] ([place]) Comment on above: Performed By: #### L AC, CBC, ADIFF, ANEU, BMP, GFR, TROPI, ERDS #### [place] [address] CSF Human herpesvirus 6 Not Detected Normal Not Detected [facility] ([place]) Comment on above: Performed By: #### L AC, CBC, ADIFF, ANEU, BMP, GFR, TROPI, ERDS #### [address] [address] CSF Human parechovirus Not Detected Normal Not Detected [facility] ([place]) Comment on above: Performed By: #### L AC, CBC, ADIFF, ANEU, BMP, GFR, TROPI, ERDS #### [place] [address] CSF Listeria monocytogenes Not Detected Normal Not Detected [facility] ([place]) Comment on above: Performed By: #### L AC, CBC, ADIFF, ANEU, BMP, GFR, TROPI, ERDS #### [place] [address] CSF Neisseria meningitides Not Detected Normal Not Detected [facility] ([place]) Comment on above: Performed By: #### L AC, CBC, ADIFF, ANEU, BMP, GFR, TROPI, ERDS #### [place] [address] CSF Streptococcus agalactiae Not Detected Normal Not Detected [facility] ([place]) Comment on above: Performed By: #### L AC, CBC, ADIFF, ANEU, BMP, GFR, TROPI, ERDS #### [place] [address] CSF Streptococcus pneumoniae Not Detected Normal Not Detected [facility] ([place]) Comment on above: Performed By: #### L AC, CBC, ADIFF, ANEU, BMP, GFR, TROPI, ERDS #### [place] [address] CSF Varicella zoster virus Not Detected Normal Not Detected [facility] ([place]) Comment on above: Performed By: #### L AC, CBC, ADIFF, ANEU, BMP, GFR, TROPI, ERDS #### [place] [address] PROon 05-20-2019 INR Coag (PPP) [Relative time] 1.0 {INR} Normal [facility] ([place]) Comment on above: Result Comment: The [employer] (CHEST, 1992, 102:312S-25S) recommended therapeutic range for oral anticoagulant therapy is: LOW RISK: Prophylaxis of venous thrombosis INR: 2.0-3.0 Treatment of pulmonary embolism 2.0-3.0 Prevention of systemic embolism 2.0-3.0 HIGH RISK: Mechanical prosthetic valves 2.5-3.5 Performed By: #### L AC, CBC, ADIFF, ANEU, BMP, GFR, TROPI, ERDS #### [place] [address] PT Coag (PPP) [Time] 11.8 s Normal 9.0-14.6 [facility] ([place]) Comment on above: Result Comment: Effe ctive 01/01/08, Protime results may be affected by some antibiotics (i.e. Ciprofloxacin, Azithromycin, Bactrim) which may potentiate the action of oral anticoagulants, with further increases in Protime/INR. Performed By: #### L AC, CBC, ADIFF, ANEU, BMP, GFR, TROPI, ERDS #### [place] [address] PROSFon 05-20-2019 Prot CSF Spec CSF Normal [facility] ([place]) Comment on above: Performed By: #### L AC, CBC, ADIFF, ANEU, BMP, GFR, TROPI, ERDS #### [place] [address] Protein CSF 49.0 mg/dL Normal 15.0-50.0 [facility] ([place]) Comment on above: Performed By: #### L AC, CBC, ADIFF, ANEU, BMP, GFR, TROPI, ERDS #### [place] [address] CURon 05-19-2019 CUR . MICRO - Microbiology PROCEDURE: Urine Culture [*1] SOURCE: Urine, Straight BODY SITE: Catherized COLLECTED DATE/TIME: 05/17/2019 13:20 EST RECEIVED DATE/TIME: 05/17/2019 13:29 EST START DATE/TIME: 05/17/2019 13:29 EST FREE TEXT SOURCE: FINAL REPORTS Final Report [] Verified Date/Time/Personnel: 05/19/2019 07:32 EST No growth at 48 hours. PRELIMINARY REPORTS Preliminary Report [] Verified Date/Time/Personnel: 05/18/2019 07:41 EST No growth to date Performing Locations *1: This test was performed at: [address], [facility] ([place]) Comment on above: Performed By: #### L AC, CBC, ADIFF, ANEU, BMP, GFR, TROPI, ERDS #### [place] [address] MRI BRAIN W/ CONTRASTon MRI BRAIN W/ CONTRAST ORIGINAL MRI BRAIN W/ CONTRAST Clinical Statement: FU to prior MRI Brain wo- subacute encephalopathy and headache, eval for any abnormal enhancement, evidence of an inflammatory/infectio us process. TECHNIQUE: Multiplanar, multisequence imaging of the brain was performed before and after the administration of IV contrast. COMPARISON: 05/17/2019 FINDINGS: There is no mass, mass-effect, or abnormal extra-axial fluid collection. Diffusion imaging shows no hyperacute, acute, or early subacute infarction. 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 The ventricles are normal in size, shape and position. There are normal signal voids in the larger intracranial vessels. Paranasal sinuses are clear. The mastoid air cells are clear. The marrow signal pattern is within normal limits. 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 Atrophy and microangiopathic change. Interpreted By: Joshua Samuels MD Preliminary Report By: Joshua Samuels MD Electronically Signed By: Joshua Samuels MD Dictated Date: 05/19/2019 4:29:00 PM Prelim Date: 05/19/2019 4:29:00 PM Sign Date: 05/19/2019 4:30:07 PM Ordering Provider:Haroldo Singh [facility] ([place]) .Auto Diffon 05-18-2019 Ammonia (P) [Mass/Vol] 0.40 10 3/mcL Normal 0.09-1.40 [facility] ([place]) Comment on above: Performed By: #### L AC, CBC, ADIFF, ANEU, BMP, GFR, TROPI, ERDS #### [address] [address] Basophils (Bld) [#/Vol] 0.00 10 3/mcL Normal 0.00-0.27 [facility] ([place]) Comment on above: Performed By: #### L AC, CBC, ADIFF, ANEU, BMP, GFR, TROPI, ERDS #### [address] [address] Basophils/100 WBC (Bld) 0.8 % Normal 0.0-2.5 [facility] ([place]) Comment on above: Performed By: #### L AC, CBC, ADIFF, ANEU, BMP, GFR, TROPI, ERDS #### [address] [address] Eosinophils (Bld) [#/Vol] 0.10 10 3/mcL Normal 0.00-0.65 [facility] ([place]) Comment on above: Performed By: #### L AC, CBC, ADIFF, ANEU, BMP, GFR, TROPI, ERDS #### [address] [address] Eosinophils/100 WBC (Bld) 3.0 % Normal 0.0-6.0 [facility] ([place] Comment on above: Performed By: #### L AC, CBC, ADIFF, ANEU, BMP, GFR, TROPI, ERDS #### [address] [address] Lymphocytes (Bld) [#/Vol] 0.70 10 3/mcL Low 0.90-4.32 [facility] ([place]) Comment on above: Performed By: #### L AC, CBC, ADIFF, ANEU, BMP, GFR, TROPI, ERDS #### [address] [address] Lymphocytes/100 WBC (Bld) 15.1 % Low 20.0-40.0 [facility] ([place] Comment on above: Performed By: #### L AC, CBC, ADIFF, ANEU, BMP, GFR, TROPI, ERDS #### [address] [address] Monocytes/100 WBC (Bld) 8.0 % Normal 2.0-13.0 [facility] ([place] Comment on above: Performed By: #### L AC, CBC, ADIFF, ANEU, BMP, GFR, TROPI, ERDS #### [address] [address] Neutrophils/100 WBC (Bld) 73.1 % Normal 50.0-75.0 [facility] ([place] Comment on above: Performed By: #### L AC, CBC, ADIFF, ANEU, BMP, GFR, TROPI, ERDS #### [address] [address] .GFRon 05-18-2019 GFR Non- 59 ml/min/1.73sqm Normal [facility] ([place]) Comment on above: Result Comment: GFR Population mean for , Non- Americans Ages 20-29 = 116 mL/min/1.73 sq.m. Ages 30-39 = 107 mL/min/1.73 sq.m. Ages 40-49 = 99 mL/min/1.73 sq.m. Ages 50-59 = 93 mL/min/1.73 sq.m. Ages 60-69 = 85 mL/min/1.73 sq.m. Ages 70+ = 75 mL/min/1.73 sq.m. Chronic Kidney Disease: Less than 60 mL/min/1.73 square meters End Stage Renal Disease: Less than 15 mL/min/1.73 square meters Performed By: #### L AC, CBC, ADIFF, ANEU, BMP, GFR, TROPI, ERDS #### [place] [address] GFR >60 Normal [facility] ([place]) Comment on above: Result Comment: GFR Population mean for , Non- Americans Ages 20-29 = 116 mL/min/1.73 sq.m. Ages 30-39 = 107 mL/min/1.73 sq.m. Ages 40-49 = 99 mL/min/1.73 sq.m. Ages 50-59 = 93 mL/min/1.73 sq.m. Ages 60-69 = 85 mL/min/1.73 sq.m. Ages 70+ = 75 mL/min/1.73 sq.m. Chronic Kidney Disease: Less than 60 mL/min/1.73 square meters End Stage Renal Disease: Less than 15 mL/min/1.73 square meters Performed By: #### L AC, CBC, ADIFF, ANEU, BMP, GFR, TROPI, ERDS #### [address] [address] .NEUABSon 05-18-2019 Neutrophils (Bld) [#/Vol] 3.40 10 3/mcL Normal 2.25-8.10 [facility] ([place]) Comment on above: Performed By: #### L AC, CBC, ADIFF, ANEU, BMP, GFR, TROPI, ERDS #### [address] [address] Bettie 05-18-2019 Ammonia (P) [Mass/Vol] 11 mcmol/l Low 25-35 [facility] ([place]) Comment on above: Performed By: #### L AC, CBC, ADIFF, ANEU, BMP, GFR, TROPI, ERDS #### [place] [address] B12on 05-18-2019 Cobalamin (Vitamin B12) [Mass/Vol] 934 pg/mL High 211-911 [facility] ([place]) Comment on above: Performed By: #### L AC, CBC, ADIFF, ANEU, BMP, GFR, TROPI, ERDS #### [place] [address] BMPon 05-18-2019 Calcium [Mass/Vol] 8.7 mg/dL Normal 8.4-10.1 [facility] ([place]) Comment on above: Performed By: #### L AC, CBC, ADIFF, ANEU, BMP, GFR, TROPI, ERDS #### [place] [address] Chloride [Moles/Vol] 105 mmol/L Normal 98-110 [facility] ([place]) Comment on above: Performed By: #### L AC, CBC, ADIFF, ANEU, BMP, GFR, TROPI, ERDS #### [address] [address] CO2 [Moles/Vol] 26 mmol/L Normal 22-32 [facility] ([place]) Comment on above: Performed By: #### L AC, CBC, ADIFF, ANEU, BMP, GFR, TROPI, ERDS #### [address] [address] Creatinine [Mass/Vol] 1.20 mg/dL Normal 0.60-1.40 [facility] ([place]) Comment on above: Performed By: #### L AC, CBC, ADIFF, ANEU, BMP, GFR, TROPI, ERDS #### [place] [id number] Electrolyte Balance 9.0 mEq/L Normal 4.0-15.0 [facility] ([place]) Comment on above: Performed By: #### L AC, CBC, ADIFF, ANEU, BMP, GFR, TROPI, ERDS #### [place] [id number] Glucose [Mass/Vol] 102 mg/dL Normal 82-115 [facility] ([place] Comment on above: Performed By: #### L AC, CBC, ADIFF, ANEU, BMP, GFR, TROPI, ERDS #### [place] [id number] Potassium [Moles/Vol] 4.1 mmol/L Normal 3.5-5.0 [facility] ([place] Comment on above: Performed By: #### L AC, CBC, ADIFF, ANEU, BMP, GFR, TROPI, ERDS #### [place] [id number] Sodium [Moles/Vol] 140 mmol/L Normal 136-145 [facility] ([place] Comment on above: Performed By: #### L AC, CBC, ADIFF, ANEU, BMP, GFR, TROPI, ERDS #### [place] [id number] Urea nitrogen [Mass/Vol] 26.0 mg/dL High 8.0-22.0 [facility] ([place]) Comment on above: Performed By: #### L AC, CBC, ADIFF, ANEU, BMP, GFR, TROPI, ERDS #### [place] [id number] Urea nitrogen/Creatinine [Mass ratio] 21.7 ratio Normal 10.0-22.0 [facility] ([place] Comment on above: Performed By: #### L AC, CBC, ADIFF, ANEU, BMP, GFR, TROPI, ERDS #### [place] [id number] CBCon 05-18-2019 Erythrocyte distribution width (RBC) [Ratio] 13.7 % Normal 11.5-15.5 [facility] ([place]) Comment on above: Performed By: #### L AC, CBC, ADIFF, ANEU, BMP, GFR, TROPI, ERDS #### [place] [id number] Hematocrit (Bld) [Volume fraction] 38.5 % Low 40.0-52.0 [facility] ([place] Comment on above: Performed By: #### L AC, CBC, ADIFF, ANEU, BMP, GFR, TROPI, ERDS #### [place] [id number] Hemoglobin (Bld) [Mass/Vol] 12.9 G/dL Low 13.0-17.5 [facility] ([place] Comment on above: Performed By: #### L AC, CBC, ADIFF, ANEU, BMP, GFR, TROPI, ERDS #### [place] [id number] MCH (RBC) [Entitic mass] 32.1 pg Normal 27.0-33.0 [facility] ([place] Comment on above: Performed By: #### L AC, CBC, ADIFF, ANEU, BMP, GFR, TROPI, ERDS #### [place] [id number] MCHC (RBC) [Mass/Vol] 33.6 G/dL Normal 32.0-36.0 [facility] ([place] Comment on above: Performed By: #### L AC, CBC, ADIFF, ANEU, BMP, GFR, TROPI, ERDS #### [place] [id number] MCV (RBC) [Entitic vol] 95.6 fL Normal 81.0-100.0 [facility] ([place]) Comment on above: Performed By: #### L AC, CBC, ADIFF, ANEU, BMP, GFR, TROPI, ERDS #### [place] [id number] Platelet mean volume (Bld) [Entitic vol] 7.3 fL Normal 6.4-10.5 [facility] ([place]) Comment on above: Performed By: #### L AC, CBC, ADIFF, ANEU, BMP, GFR, TROPI, ERDS #### [place] [id number] Platelets (Bld) [#/Vol] 165 10 3/mcL Normal 150-450 [facility] ([place] Comment on above: Performed By: #### L AC, CBC, ADIFF, ANEU, BMP, GFR, TROPI, ERDS #### [place] [address] RBC (Bld) [#/Vol] 4.03 10 6/mcL Low 4.50-6.00 [facility] ([place] Comment on above: Performed By: #### L AC, CBC, ADIFF, ANEU, BMP, GFR, TROPI, ERDS #### [place] [address] WBC (Bld) [#/Vol] 4.60 10 3/mcL Normal 4.50-10.80 [facility] ([place] Comment on above: Performed By: #### L AC, CBC, ADIFF, ANEU, BMP, GFR, TROPI, ERDS #### [place] [address] ESRon 05-18-2019 ESR (Bld) [Velocity] 15 mm/h Normal 0-20 [facility] ([place] Comment on above: Performed By: #### L AC, CBC, ADIFF, ANEU, BMP, GFR, TROPI, ERDS #### [place] [address] FOLon 05-18-2019 Folate 6.9 ng/mL Normal 1.1-20.0 [facility] ([place]) Comment on above: Performed By: #### L AC, CBC, ADIFF, ANEU, BMP, GFR, TROPI, ERDS #### [place] [address] FT4on 05-18-2019 Free T4 [Mass/Vol] 0.91 ng/dL Normal 0.60-1.70 [facility] ([place] Comment on above: Performed By: #### L AC, CBC, ADIFF, ANEU, BMP, GFR, TROPI, ERDS #### [address] [address] MRI BRAIN W/O CONTRASTon MRI BRAIN W/O CONTRAST ORIGINAL MRI BRAIN W/O CONTRAST Clinical Statement: cva. TECHNIQUE: Sagittal T1, axial FLAIR, T2 and diffusion-weighted images of the brain with ADC maps. COMPARISON: CT head (05/17/2019). FINDINGS: Diffusion imaging shows no hyperacute, acute, or early subacute infarction. There is no mass, mass-effect, or abnormal extra-axial fluid collection. 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 There is mild cerebral volume loss, with commensurate ventricular and sulcal enlargement. There are normal signal voids in the larger intracranial vessels. Paranasal sinuses are clear. The mastoid air cells are clear. The marrow signal pattern is within normal limits. IMPRESSION: Volume loss and small vessel ischemic disease. I have personally reviewed the images of this examination and agree with the resident's findings and interpretation. Interpreted By: Griffin Clemente MD Preliminary Report By: Antwan Robb DO Electronically Signed By: Griffin Clemente MD Dictated Date: 05/17/2019 11:02:42 PM Prelim Date: 05/17/2019 11:04:13 PM Sign Date: 05/17/2019 11:21:55 PM Ordering Provider:Bety Singh [facility] ([place]) TSHon 05-18-2019 TSH Qn 2.070 mcIU/mL Normal 0.360-3.740 [facility] ([place]) Comment on above: Performed By: #### L AC, CBC, ADIFF, ANEU, BMP, GFR, TROPI, ERDS #### [address] [address] .Auto Diffon 05-17-2019 Ammonia (P) [Mass/Vol] 0.50 10 3/mcL Normal 0.09-1.40 [facility] ([place]) Comment on above: Performed By: #### L AC, CBC, ADIFF, ANEU, BMP, GFR, TROPI, ERDS #### [address] [address] Basophils (Bld) [#/Vol] 0.00 10 3/mcL Normal 0.00-0.27 [facility] ([place]) Comment on above: Performed By: #### L AC, CBC, ADIFF, ANEU, BMP, GFR, TROPI, ERDS #### [address] [address] Basophils/100 WBC (Bld) 0.6 % Normal 0.0-2.5 [facility] ([place] Comment on above: Performed By: #### L AC, CBC, ADIFF, ANEU, BMP, GFR, TROPI, ERDS #### [address] [address] Eosinophils (Bld) [#/Vol] 0.10 10 3/mcL Normal 0.00-0.65 [facility] ([place] Comment on above: Performed By: #### L AC, CBC, ADIFF, ANEU, BMP, GFR, TROPI, ERDS #### [address] [address] Eosinophils/100 WBC (Bld) 1.9 % Normal 0.0-6.0 [facility] ([place] Comment on above: Performed By: #### L AC, CBC, ADIFF, ANEU, BMP, GFR, TROPI, ERDS #### [address] [address] Lymphocytes (Bld) [#/Vol] 0.60 10 3/mcL Low 0.90-4.32 [facility] ([place] Comment on above: Performed By: #### L AC, CBC, ADIFF, ANEU, BMP, GFR, TROPI, ERDS #### [address] [address] Lymphocytes/100 WBC (Bld) 12.6 % Low 20.0-40.0 [facility] ([place] Comment on above: Performed By: #### L AC, CBC, ADIFF, ANEU, BMP, GFR, TROPI, ERDS #### [address] [address] Monocytes/100 WBC (Bld) 9.7 % Normal 2.0-13.0 [facility] ([place] Comment on above: Performed By: #### L AC, CBC, ADIFF, ANEU, BMP, GFR, TROPI, ERDS #### [address] [address] Neutrophils/100 WBC (Bld) 75.2 % High 50.0-75.0 [facility] ([place] Comment on above: Performed By: #### L AC, CBC, ADIFF, ANEU, BMP, GFR, TROPI, ERDS #### [address] [address] .GFRon 05-17-2019 GFR Non- 55 ml/min/1.73sqm Normal [facility] ([place]) Comment on above: Result Comment: GFR Population mean for , Non- Americans Ages 20-29 = 116 mL/min/1.73 sq.m. Ages 30-39 = 107 mL/min/1.73 sq.m. Ages 40-49 = 99 mL/min/1.73 sq.m. Ages 50-59 = 93 mL/min/1.73 sq.m. Ages 60-69 = 85 mL/min/1.73 sq.m. Ages 70+ = 75 mL/min/1.73 sq.m. Chronic Kidney Disease: Less than 60 mL/min/1.73 square meters End Stage Renal Disease: Less than 15 mL/min/1.73 square meters Performed By: #### L AC, CBC, ADIFF, ANEU, BMP, GFR, TROPI, ERDS #### [address] [address] GFR >60 Normal [facility] ([place]) Comment on above: Result Comment: GFR Population mean for , Non- Americans Ages 20-29 = 116 mL/min/1.73 sq.m. Ages 30-39 = 107 mL/min/1.73 sq.m. Ages 40-49 = 99 mL/min/1.73 sq.m. Ages 50-59 = 93 mL/min/1.73 sq.m. Ages 60-69 = 85 mL/min/1.73 sq.m. Ages 70+ = 75 mL/min/1.73 sq.m. Chronic Kidney Disease: Less than 60 mL/min/1.73 square meters End Stage Renal Disease: Less than 15 mL/min/1.73 square meters Performed By: #### L AC, CBC, ADIFF, ANEU, BMP, GFR, TROPI, ERDS #### [address] [address] .NEUABSon 05-17-2019 Neutrophils (Bld) [#/Vol] 3.70 10 3/mcL Normal 2.25-8.10 [facility] ([place]) Comment on above: Performed By: #### L AC, CBC, ADIFF, ANEU, BMP, GFR, TROPI, ERDS #### [place] [address] BMPon 05-17-2019 Creatinine [Mass/Vol] 1.27 mg/dL Normal 0.60-1.40 [facility] ([place] Comment on above: Performed By: #### L AC, CBC, ADIFF, ANEU, BMP, GFR, TROPI, ERDS #### [place] [address] Urea nitrogen/Creatinine [Mass ratio] 22.0 ratio Normal 10.0-22.0 [facility] ([place]) Comment on above: Performed By: #### L AC, CBC, ADIFF, ANEU, BMP, GFR, TROPI, ERDS #### [place] [address] Calcium [Mass/Vol] 9.6 mg/dL Normal 8.4-10.1 [facility] ([place] Comment on above: Performed By: #### L AC, CBC, ADIFF, ANEU, BMP, GFR, TROPI, ERDS #### [address] [address] Chloride [Moles/Vol] 104 mmol/L Normal 98-110 [facility] ([place] Comment on above: Performed By: #### L AC, CBC, ADIFF, ANEU, BMP, GFR, TROPI, ERDS #### [place] [id number] CO2 [Moles/Vol] 31 mmol/L Normal 22-32 [facility] ([place]) Comment on above: Performed By: #### L AC, CBC, ADIFF, ANEU, BMP, GFR, TROPI, ERDS #### [address] [address] Electrolyte Balance 5.0 mEq/L Normal 4.0-15.0 [facility] ([place]) Comment on above: Performed By: #### L AC, CBC, ADIFF, ANEU, BMP, GFR, TROPI, ERDS #### [place] [id number] Glucose [Mass/Vol] 130 mg/dL High 82-115 [facility] ([place] Comment on above: Performed By: #### L AC, CBC, ADIFF, ANEU, BMP, GFR, TROPI, ERDS #### [place] [id number] Potassium [Moles/Vol] 4.7 mmol/L Normal 3.5-5.0 [facility] ([place] Comment on above: Performed By: #### L AC, CBC, ADIFF, ANEU, BMP, GFR, TROPI, ERDS #### [place] [id number] Sodium [Moles/Vol] 140 mmol/L Normal 136-145 [facility] ([place] Comment on above: Performed By: #### L AC, CBC, ADIFF, ANEU, BMP, GFR, TROPI, ERDS #### [place] [id number] Urea nitrogen [Mass/Vol] 28.0 mg/dL High 8.0-22.0 [facility] ([place]) Comment on above: Performed By: #### L AC, CBC, ADIFF, ANEU, BMP, GFR, TROPI, ERDS #### [address] [address] CBCon 05-17-2019 Erythrocyte distribution width (RBC) [Ratio] 13.4 % Normal 11.5-15.5 [facility] ([place]) Comment on above: Performed By: #### L AC, CBC, ADIFF, ANEU, BMP, GFR, TROPI, ERDS #### [place] [id number] Hematocrit (Bld) [Volume fraction] 41.9 % Normal 40.0-52.0 [facility] ([place]) Comment on above: Performed By: #### L AC, CBC, ADIFF, ANEU, BMP, GFR, TROPI, ERDS #### [place] [id number] Hemoglobin (Bld) [Mass/Vol] 13.8 G/dL Normal 13.0-17.5 [facility] ([place] Comment on above: Performed By: #### L AC, CBC, ADIFF, ANEU, BMP, GFR, TROPI, ERDS #### [place] [id number] MCH (RBC) [Entitic mass] 32.2 pg Normal 27.0-33.0 [facility] ([place] Comment on above: Performed By: #### L AC, CBC, ADIFF, ANEU, BMP, GFR, TROPI, ERDS #### [place] [id number] MCHC (RBC) [Mass/Vol] 33.0 G/dL Normal 32.0-36.0 [facility] ([place] Comment on above: Performed By: #### L AC, CBC, ADIFF, ANEU, BMP, GFR, TROPI, ERDS #### [place] [address] MCV (RBC) [Entitic vol] 97.8 fL Normal 81.0-100.0 [facility] ([place] Comment on above: Performed By: #### L AC, CBC, ADIFF, ANEU, BMP, GFR, TROPI, ERDS #### [place] [id number] Platelet mean volume (Bld) [Entitic vol] 7.3 fL Normal 6.4-10.5 [facility] ([place] Comment on above: Performed By: #### L AC, CBC, ADIFF, ANEU, BMP, GFR, TROPI, ERDS #### [facility] [address] [place], [place] [address] Platelets (Bld) [#/Vol] 179 10 3/mcL Normal 150-450 [facility] ([place]) Comment on above: Performed By: #### L AC, CBC, ADIFF, ANEU, BMP, GFR, TROPI, ERDS #### [facility] [address] [place] [address] RBC (Bld) [#/Vol] 4.28 10 6/mcL Low 4.50-6.00 [facility] ([place]) Comment on above: Performed By: #### L AC, CBC, ADIFF, ANEU, BMP, GFR, TROPI, ERDS #### [facility] [address] [place] [address] WBC (Bld) [#/Vol] 4.90 10 3/mcL Normal 4.50-10.80 [facility] ([place] Comment on above: Performed By: #### L AC, CBC, ADIFF, ANEU, BMP, GFR, TROPI, ERDS #### [facility] [address] [place] [address] HEAD OR BRAIN W/O CONTRAS Ton 05-17-2019 CT HEAD OR BRAIN W/O CONTRAST ORIGINAL CT HEAD OR BRAIN W/O CONTRAST TECHNIQUE: Images were obtained without contrast. This exam was performed according to our departmental dose optimization program, and includes the following measures where applicable: automated exposure control, adjustment of the mAs and/or kVp according to patient size and/or exam, and an iterative reconstruction algorithm. CLINICAL STATEMENT: Altered mental status. COMPARISON: None FINDINGS: There is mild opacification of ethmoid air cells bilaterally compatible with minimal sinusitis. The brain shows mild atrophy. No hemorrhage or mass is identified. Areas of low-density are present within the white matter, compatible with mild chronic ischemic small vessel change. The posterior fossa is unremarkable. IMPRESSION: Atrophy and chronic ischemic small vessel white matter changes. No acute finding. Interpreted By: Joshua Jason MD Preliminary Report By: Joshua Jason MD Electronically Signed By: Joshua Jason MD Dictated Date: 05/17/2019 2:49:12 PM Prelim Date: 05/17/2019 2:49:12 PM Sign Date: 05/17/2019 2:49:58 PM Ordering Provider:Marcela Singh [facility] ([place]) ERDSon 05-17-2019 Acetaminophen [Mass/Vol] <2.0 Low 10.0-30.0 [facility] ([place]) Comment on above: Performed By: #### L AC, CBC, ADIFF, ANEU, BMP, GFR, TROPI, ERDS #### [place] [address] ER Drug Screen (s) Negative Normal [facility] ([place] Comment on above: Performed By: #### L AC, CBC, ADIFF, ANEU, BMP, GFR, TROPI, ERDS #### [place] [address] ER Drug Screen Interp Serum shows no evidence of drugs routinely screened [facility] ([place]) Comment on above: Performed By: #### L AC, CBC, ADIFF, ANEU, BMP, GFR, TROPI, ERDS #### [place] [address] ER Serum Drugs Screened: See Below [facility] ([place]) Comment on above: Result Comment: This drug screen is a presumptive screening only. No confirmation will be performed unless requested. Drugs included in the ER serum drug screen are: Threshold Ethanol 10.0 mg/dL Salicylate 2.0 mg/dL Acetaminophen 2.0 mcg/mL Tricyclic Antidepressants 300 ng/mL Testing has been performed FOR MEDICAL PURPOSES ONLY. Performed By: #### L AC, CBC, ADIFF, ANEU, BMP, GFR, TROPI, ERDS #### [place] [address] Salicylate Lvl (ds) <2.0 Low 10.0-25.0 [facility] ([place] Comment on above: Performed By: #### L AC, CBC, ADIFF, ANEU, BMP, GFR, TROPI, ERDS #### [place] [address] TCA (s) Negative [facility] ([place]) Comment on above: Performed By: #### L AC, CBC, ADIFF, ANEU, BMP, GFR, TROPI, ERDS #### [place] [address] Ethanol Level <10.0 Normal [facility] ([place]) Comment on above: Performed By: #### L AC, CBC, ADIFF, ANEU, BMP, GFR, TROPI, ERDS #### [address] [address] LACon 05-17-2019 Lactic Acid Lvl 1.0 mmol/L Normal 0.2-2.0 [facility] ([place] Comment on above: Performed By: #### L AC, CBC, ADIFF, ANEU, BMP, GFR, TROPI, ERDS #### [place] [address] TROPIon 05-17-2019 Troponin I.cardiac [Mass/Vol] ng/mL Normal 0.000-0.040 [facility] ([place]) Comment on above: Result Comment: Trop onin I reference ranges (02/24/14): 0.00-0.040 ng/mL Negative and non-diagnostic. >0.040 ng/mL Consistent with cardiac damage, increased clinical risk and possibility of myocardial infarction. Serial measurements, a rise & fall in test results, clinical history, appropriate symptoms and/or ECG changes may help assess possibility of HI. *Other non-acute coronary syndrome conditions such as CHF, myocarditis, pulmonary emboli, sepsis and cardiac surgery could result in myocardial damage and increased troponin levels. Performed By: #### L AC, CBC, ADIFF, ANEU, BMP, GFR, TROPI, ERDS #### [place] [id number] U ERDSon 05-17-2019 ER U Drug Screen Negative Normal [facility] ([place] Comment on above: Performed By: #### L AC, CBC, ADIFF, ANEU, BMP, GFR, TROPI, ERDS #### [place] [id number] ER U Drug Screen Interp Urine shows no evidence of drugs routinely screened. [facility] ([place]) Comment on above: Performed By: #### L AC, CBC, ADIFF, ANEU, BMP, GFR, TROPI, ERDS #### [place] [id number] U ER Drugs Screened: See Below Normal [facility] ([place] Comment on above: Result Comment: This drug screen is a presumptive screening only. No confirmation will be performed unless requested. Drugs included in the ER urine drug screen are: Threshold Amphetamine/Methamphetamine 1000 ng/mL Barbiturates 200 ng/mL Benzodiazepine metabolites 200 ng/mL Cannabinoids (THC metabolites) 50 ng/mL Benzoylecognine (cocaine met) 300 ng/mL Opiates 300 ng/mL Phencyclidine (PCP) 25 ng/mL Testing has been performed FOR MEDICAL PURPOSES ONLY. Performed By: #### L AC, CBC, ADIFF, ANEU, BMP, GFR, TROPI, ERDS #### [address] [address] UAon 05-17-2019 Color (U) Yellow Normal [facility] ([place] Comment on above: Performed By: #### Jersey Silva UERLUIS ANTONIO #### [place] [address] Glucose (U) [Mass/Vol] Negative Normal Negative [facility] ([place] Comment on above: Performed By: #### Jersey Silva UERLUIS ANTONIO #### [place] [address] Ketones Ql (U) Negative Normal Neg-Trace [facility] ([place] Comment on above: Performed By: #### Jersey Silva UERLUIS ANTONIO #### [place] [address] UA Appear Clear Normal [facility] ([place] Comment on above: Performed By: #### Jersey Silva UERLUIS ANTONIO #### [place] [id number] UA Blood Trace Normal Neg-Trace [facility] ([place] Comment on above: Performed By: #### U Ricardo UERLUIS ANTONIO #### [address] [address] UA Leuk Est Negative Normal Negative [facility] ([place] Comment on above: Performed By: #### U Ricardo UERLUIS ANTONIO #### [address] [address] UA Nitrite Negative Normal Negative [facility] ([place]) Comment on above: Performed By: #### U Ricardo UERLUIS ANTONIO #### [facility] [address] [place] [address] UA pH 6.5 Normal 5.0 - 8.0 [facility] ([place]) Comment on above: Performed By: #### U Ricardo UERLUIS ANTONIO #### [facility] [address] [place] [address] UA Protein Negative Normal Negative [facility] ([place] Comment on above: Performed By: #### Jersey Silva UERLUIS ANTONIO #### [address] [address] UA Spec Grav 1.015 Normal [facility] ([place]) Comment on above: Performed By: #### Jersey Silva UGEORGES #### [address] [address] UA Specimen Type Catheter Normal [facility] ([place]) Comment on above: Performed By: #### Jersey Silva UGEORGES #### [address] [address] UA Urobilinogen 0.2 E.U./dL Normal [facility] ([place]) Comment on above: Performed By: #### Jersey Silva UERLUIS ANTONIO #### [address] [address] Urobilinogen Qn (U) Negative Normal Neg-Trace [facility] ([place]) Comment on above: Performed By: #### Jersey Silva UERLUIS ANTONIO #### [place] [address] XR CHEST 1 VIEWon 05-17-2019 XR CHEST 1 VIEW ORIGINAL XR CHEST 1 VIEW 1:19 PM May 17, 2019 CLINICAL STATEMENT: Altered mental status. COMPARISON: January 10, 2008 FINDINGS: The heart is slightly prominent without vascular congestion. Minimal basilar atelectasis is present and there is trace left pleural fluid noted. Minor degenerative changes are noted in the spine. IMPRESSION: Trace left pleural fluid and minimal basilar atelectasis. Interpreted By: Joshua Jason MD Preliminary Report By: Joshua Jason MD Electronically Signed By: Joshua Jason MD Dictated Date: 05/17/2019 1:25:19 PM Prelim Date: 05/17/2019 1:25:19 PM Sign Date: 05/17/2019 1:25:46 PM Ordering Provider:Marcela Meeks [facility] ([place]) XR FOREIGN BODY LOC EYE VERNA Loyd 05-17-2019 XR FOREIGN BODY LOC EYE BILATERAL ORIGINAL XR FOREIGN BODY LOC EYE BILATERAL CLINICAL STATEMENT: Metal in eyes for MRI. COMPARISON: None IMPRESSION: No intraorbital metallic foreign body. I have personally reviewed the images of this examination and agree with the resident's findings and interpretation. Interpreted By: Griffin Clemente MD Preliminary Report By: Antwan Robb DO Electronically Signed By: Griffin Clemente MD Dictated Date: 05/17/2019 7:36:59 PM Prelim Date: 05/17/2019 7:37:09 PM Sign Date: 05/17/2019 8:16:11 PM Ordering Provider:Bert Harris [facility]) PSA,Total- Diagnosticon 04-19 PSA, DIAGNOSTIC 0.02 ng/mL Normal 0.0-4.0 [facility] Comment on above: Result Comment: This test was performed using the TPSA assay method for the [employer] chemistry system. Values obtained with different assay methods cannot be used interchangably. When changing PSA assays in the course of monitoring a patient, additional sequential testing should be carried out to confirm baseline values. Performed By: #### L [phone] #### [facility] [place], [address] Laboratory - Chemistry and C hemistry - challengeon 04-12-2019 Albumin [Mass/Vol] 4.4 g/dL Normal 3.6 - 5.1 g/dL [employer], [employer].; [employer], [employer]. Albumin/Globulin [Mass ratio] 1.9 {ratio} Normal 1.0 - 2.5 [employer], [employer].; [employer] ALP [Catalytic activity/Vol] 42 U/L Normal 40 - 115 U/L [employer] ALT [Catalytic activity/Vol] 23 U/L Normal 9 - 46 U/L [employer], [employer].; [employer], [employer]. AST [Catalytic activity/Vol] 20 U/L Normal 10 - 35 U/L [facility].; [facility], [facility]. Bilirubin [Mass/Vol] 0.3 mg/dL Normal 0.2 - 1 .2 mg/dL [facility]; [facility], [facility] Calcium [Mass/Vol] 9.2 mg/dL Normal 8.6 - 10. 3 mg/dL [facility]; [facility], [facility] Chloride [Moles/Vol] 107 mmol/L Normal 98 - 11 0 mmol/L [facility].; [facility], [facility] CO2 [Moles/Vol] 29 mmol/L Normal 20 - 32 mmol/L [facility]; [facility], [facility] Creatinine [Mass/Vol] 1.37 mg/dL Abnormal 0.70 - 1.18 mg/dL [facility].; [facility], [facility]. GFR/1.73 sq M.predicted among blacks MDRD (S/P/Bld) [Vol rate/Area] 57 {ML/MIN/1.73M2} Abnormal [facility].; [facility], [facility]. GFR/1.73 sq M.predicted MDRD (S/P/Bld) [Vol rate/Area] 49 {ML/MIN/1.73M2} Abnormal [facility].; [facility], [facility]. Globulin (S) [Mass/Vol] 2.2 g/dL Normal 1.9 - 3.7 g/dL [facility].; [facility], [facility]. Glucose [Mass/Vol] 85 mg/dL Normal 65 - 99 mg/dL [facility].; [facility], [facility]. Potassium [Moles/Vol] 4.7 mmol/L Normal 3.5 - 5.3 mmol/L [facility], [facility].; [facility], [facility] Protein [Mass/Vol] 6.6 g/dL Normal 6.1 - 8.1 g/dL [facility], [facility].; [facility], [facility]. Sodium [Moles/Vol] 142 mmol/L Normal 135 - 146 mmol/L [facility], [facility].; [facility], [facility] TSH Qn 3.90 m[IU]/L Normal 0.40 - 4.50 {mIU/L} [employer] [facility].; [employer]. Urea nitrogen [Mass/Vol] 30 mg/dL Abnormal 7 - 25 mg/dL [employer].; [employer], [employer]. Urea nitrogen/Creatinine [Mass ratio] 22.1 mg/mg Abnormal 6 - 22 [facility] [employer], [employer]. Laboratory - Hematology and Cell countson 04-12-2019 Basophils (Bld) [#/Vol] 10 {Cells}/uL Normal 0 - 200 {Cells}/uL [facility].; [employer]. Basophils/100 WBC (Bld) 0.3 % Normal 0 - 1 % [employer].; [employer], [employer]. Eosinophils (Bld) [#/Vol] 100 {Cells}/uL Normal 15 - 500 {Cells}/uL [employer].; [employer], [employer]. Eosinophils/100 WBC (Bld) 3.1 % Normal 0 - 4 % [employer].; [employer], [employer]. Erythrocyte distribution width (RBC) [Ratio] 12.8 % Normal 11.0 - 15.0 % [employer].; [employer], [employer]. Hematocrit (Bld) [Volume fraction] 35.4 % Abnormal 38.5 - 50.0 % [employer].; [employer], [employer]. Hemoglobin (Bld) [Mass/Vol] 11.8 g/dL Abnormal 13.2 - 17.1 g/dL [employer].; [employer], [employer]. Lymphocytes (Bld) [#/Vol] 500 {Cells}/uL Abnormal 850 - 3900 {Cells}/uL [employer].; [employer], [employer]. Lymphocytes/100 WBC (Bld) 15.4 % Normal 12 - 47 % [employer].; [employer], [employer]. MCH (RBC) [Entitic mass] 33.2 pg Abnormal 27.0 - 33.0 PG [employer].; [employer], [employer]. MCHC (RBC) [Mass/Vol] 33.3 g/dL Normal 32.0 - 36.0 g/dL [facility] [employer].; [employer], [employer]. MCV (RBC) [Entitic vol] 99.7 fL Normal 80.0 - 100.0 fL [employer].; [employer], [employer]. Monocytes (Bld) [#/Vol] 300 {Cells}/uL Normal 200 - 950 {Cells}/uL [employer], [employer]. Monocytes/100 WBC (Bld) 9.2 % Normal 4 - 12 % [employer].; [employer]. Neutrophils (Bld) [#/Vol] 2220 {Cells}/uL Normal 1500 - 7800 {Cells}/uL [employer].; [employer], [employer]. Neutrophils/100 WBC (Bld) 72 % Normal 40 - 75 % [employer].; [employer], [employer]. Platelet mean volume (Bld) [Entitic vol] 10.4 fL Normal 7.5 - 12.5 fL [facility] [employer], [employer]. Platelets (Bld) [#/Vol] 137 10*3/uL Abnormal 140 - 400 10*3/uL [employer].; [employer], [employer]. RBC (Bld) [#/Vol] 3.55 10*6/uL Abnormal 4.20 - 5.8 0 10*6/uL [employer].; [employer], [employer]. WBC (Bld) [#/Vol] 3.3 10*3/uL Abnormal 3.8 - 10.8 10*3/uL [employer].; [employer], [employer]. Laboratory - Chemistry and C hemistry - challengeon 07-23-2018 TSH Qn 3.09 m[IU]/L Normal 0.40 - 4.50 {mIU/L} [employer].; [employer], [employer]. Laboratoryon 12-07-2017 Lower GI hemoglobin IA Ql (Stl) Not detected Normal [employer].; [employer]. Laboratory - Hematology and Cell countson 07-28-2017 HbA1c (Bld) [Mass fraction] 5.7 % Normal 4.6 - 7.1 % [employer].; [employer] [facility]. Laboratory - Chemistry and C hemistry - challengeon 05-11-2015 Anion gap [Moles/Vol] 7 mmol/L Abnormal 10 - 2 0 mmol/L [facility].; [facility], [facility]. Basic metabolic 2000 panel BMP with eGFR Normal [facility].; [facility], [facility]. Calcium [Mass/Vol] 9.1 mg/dL Normal 8.6 - 10. 2 mg/dL [facility].; [facility], [facility]. Chloride [Moles/Vol] 105 mmol/L Normal 98 - 10 7 mmol/L [facility].; [employer], [facility]. CO2 [Moles/Vol] 29.0 mmol/L Normal 13.0 - 29.0 mmol/L [facility].; [employer] [facility], [facility]. Creatinine [Mass/Vol] 1.3 mg/dL Normal 0.7 - 1.3 mg/dL [facility], [facility].; [facility] [employer] [facility], [facility]. GFR/1.73 sq M.predicted among blacks MDRD (S/P/Bld) [Vol rate/Area] mL/min/{1.73_m2} Normal 60 - 999 {ML/MINUTE} [facility], [facility].; [employer] [facility], [facility]. GFR/1.73 sq M.predicted MDRD (S/P/Bld) [Vol rate/Area] 54 {ML/MINUTE} Abnormal 60 - 999 {ML/MINUTE} [facility], [facility].; [employer] [facility] Glucose [Mass/Vol] 93 mg/dL Normal 74 - 106 mg/dL [facility], [facility].; [employer] Potassium [Moles/Vol] 4.1 mmol/L Normal 3.5 - 5.1 mmol/L [facility], [facility].; [employer] Sodium [Moles/Vol] 137 mmol/L Normal 136 - 145 mmol/L [facility], [facility].; [employer] Urate [Mass/Vol] 7.1 mg/dL Normal 4.4 - 7.6 mg/dL [facility].; [employer], [employer]. Urea nitrogen [Mass/Vol] 21 mg/dL Abnormal 6 - 20 mg/dL [facility]; [facility] No Panel Informationon 05-11 AGE 74 {years} Normal [facility]; [facility] Laboratory - Microbiology an d Antimicrobial susceptibilityon 11-28-2014 B. burgdorferi Ab IA Qn (S) LYME DISEASE AB W/RFX IGG,IGM Normal [facility]; [facility] Laboratory - Chemistry and C hemistry - challengeon 11-25-2014 Albumin [Mass/Vol] 4.2 g/dL Normal 3.4 - 4.8 g/dL [facility]; [facility], [facility] Albumin [Mass/Vol] 1.9 g/dL Abnormal 0.9 - 1.6 [facility]; [facility], [facility]. ALP [Catalytic activity/Vol] 43 U/L Normal 38 - 126 U/L [facility].; [facility], [facility]. ALT [Catalytic activity/Vol] 20 U/L Normal 10 - 40 U/L [facility].; [facility], [facility]. AST [Catalytic activity/Vol] 20 U/L Normal 13 - 39 U/L [facility].; [facility], [facility]. Bilirubin [Mass/Vol] 0.6 mg/dL Normal 0.0 - 1 .5 mg/dL [facility]; [facility], [facility]. Calcium [Mass/Vol] 9.4 mg/dL Normal 8.6 - 10. 2 mg/dL [facility].; [facility], [facility]. Chloride [Moles/Vol] 101 mmol/L Normal 98 - 10 7 mmol/L [facility].; [facility], [facility]. CO2 [Moles/Vol] 28.0 mmol/L Normal 13.0 - 29.0 mmol/L [facility], [facility].; [facility], [facility]. Comprehensive metabolic 2000 panel CMP with eGFR Normal [facility]; [facility], [facility] Creatinine [Mass/Vol] 1.3 mg/dL Normal 0.7 - 1.3 mg/dL [facility].; [facility] GFR/1.73 sq M.predicted among blacks MDRD (S/P/Bld) [Vol rate/Area] mL/min/{1.73_m2} Normal 60 - 999 {ML/MINUTE} [facility].; [employer] [facility]. GFR/1.73 sq M.predicted MDRD (S/P/Bld) [Vol rate/Area] 54 {ML/MINUTE} Abnormal 60 - 999 {ML/MINUTE} [facility].; [employer] [facility] Globulin (S) [Mass/Vol] 2.2 g/dL Normal 1.5 - 3.8 g/dL [facility].; [employer] Glucose [Mass/Vol] 98 mg/dL Normal 74 - 106 mg/dL [employer] [facility].; [employer]. Potassium [Moles/Vol] 5.2 mmol/L Abnormal 3.5 - 5.1 mmol/L [employer] [facility].; [employer]. Protein [Mass/Vol] 6.4 g/dL Normal 6.4 - 8.3 g/dL [employer] [facility].; [employer]. Sodium [Moles/Vol] 134 mmol/L Abnormal 136 - 145 mmol/L [employer] [facility].; [employer]. TSH Qn 3.97 m[IU]/L Normal 0.34 - 5.60 {uIU/ml} [employer] [facility].; [employer] Urea nitrogen [Mass/Vol] 29 mg/dL Abnormal 6 - 20 mg/dL [employer] [facility].; [employer]. Urea nitrogen/Creatinine [Mass ratio] 22 {ratio} Normal 0 - 30 {ratio} [employer].; [employer]. Laboratory - Serology - non- microon 11-25-2014 Nuclear Ab IF Ql (S) ANTI NUCLEAR AB ANEESH W/ REFLEX TITER Normal [employer]; [employer] Rheumatoid factor Qn RHEUMATOID FACTOR Normal [employer]; [employer] Work Phone: No Panel Informationon 11-25 AGE 74 {years} Normal [employer].; [employer] Laboratory - Chemistry and C hemistry - challengeon 04-08-2013 Cholesterol [Mass/Vol] 124 mg/dL Normal 0 - 200 mg/dL [facility], [facility].; [employer] Cholesterol in HDL [Mass/Vol] 45 mg/dL Normal 40 - 60 mg/dL [facility], [facility].; [employer] Cholesterol in LDL [Mass/Vol] 68 mg/dL Normal 50.0 - 130.0 mg/dL [facility] [employer], [facility].; [employer], [employer] Cholesterol in VLDL [Mass/Vol] - Normal [employer], [facility].; [employer], [employer] Cholesterol.total/Cho lesterol in HDL [Mass ratio] - Normal 0 - 5.0 [employer], [employer] Triglyceride [Mass/Vol] 53 mg/dL Normal 40 - 150 mg/dL [employer] Laboratory - Chemistry and C hemistry - challengeon 05-03-2012 Cholesterol [Mass/Vol] 116 mg/dL Normal 0 - 200 mg/dL [employer] Cholesterol in HDL [Mass/Vol] 44 mg/dL Normal 40 - 60 mg/dL [employer] Cholesterol in LDL [Mass/Vol] 61 mg/dL Normal 50.0 - 130.0 mg/dL [employer], [employer] Cholesterol in VLDL [Mass/Vol] - Normal [employer].; [employer], [employer] Cholesterol.total/Cho lesterol in HDL [Mass ratio] - Normal 0 - 5.0 [employer].; [employer], [employer] Triglyceride [Mass/Vol] 55 mg/dL Normal 40 - 150 mg/dL [employer], [employer].; [employer], [employer] Laboratory - Chemistry and C hemistry - challengeon 11-17-2011 Cholesterol [Mass/Vol] 140 mg/dL Normal 0 - 200 mg/dL [employer], [employer] Cholesterol in HDL [Mass/Vol] 49 mg/dL Normal 40 - 60 mg/dL [facility]; [facility], [facility] Cholesterol in LDL [Mass/Vol] 77 mg/dL Normal 50.0 - 130.0 mg/dL [facility]; [facility], [facility] Cholesterol in VLDL [Mass/Vol] - Normal [facility]; [facility], [facility] Cholesterol.total/Cho lesterol in HDL [Mass ratio] - Normal 0 - 5.0 [facility]; [facility], [facility] Triglyceride [Mass/Vol] 68 mg/dL Normal 40 - 150 mg/dL [facility]; [facility], [facility] Laboratory - Chemistry and C hemistry - challengeon 07-15-2011 Prostate specific Ag [Mass/Vol] 3.7 ng/mL Normal 0.0 - 4.0 ng/mL [facility]; [facility], [facility] Laboratory - Chemistry and C hemistry - challengeon 11-08-2010 Urate [Mass/Vol] 7.0 mg/dL Normal 4.0 - 8.0 mg/dL [facility]; [facility], [facility]. Laboratory - Hematology and Cell countson 11-08-2010 Basophils (Bld) [#/Vol] 20 {Cells}/uL Normal 0 - 200 {Cells}/uL [facility]; [facility], [facility]. Basophils/100 WBC (Bld) 0 % Normal 0 - 2 % [facility]; [facility], [facility]. Eosinophils (Bld) [#/Vol] 130 {Cells}/uL Normal 15 - 500 {Cells}/uL [facility].; [facility], [facility]. Eosinophils/100 WBC (Bld) 2 % Normal 0 - 8 % [facility]; [facility], [facility] Erythrocyte distribution width (RBC) [Ratio] 13.4 % Normal 11.0 - 15.0 % [facility].; [facility], [facility]. ESR (Bld) [Velocity] 4 mm/h Normal 0 - 20 mm/h [facility]; [facility], [facility] Hematocrit (Bld) [Volume fraction] 39.6 % Normal 38.5 - 50.0 % [facility], [facility].; [employer] [facility], [facility]. Hemoglobin (Bld) [Mass/Vol] 13.7 g/dL Normal 13.2 - 17.1 g/dL [facility], [facility].; [facility], [facility]. Lymphocytes (Bld) [#/Vol] 1160 {Cells}/uL Normal 850 - 3900 {Cells}/uL [facility], [facility].; [employer], [facility]. Lymphocytes/100 WBC (Bld) 20 % Normal 15 - 49 % [facility].; [employer], [facility]. MCH (RBC) [Entitic mass] 33.3 pg Abnormal 27.0 - 33.0 PG [facility].; [facility] [employer] [facility], [facility]. MCHC (RBC) [Mass/Vol] 34.6 g/dL Normal 32.0 - 36.0 g/dL [facility], [facility].; [employer], [facility]. MCV (RBC) [Entitic vol] 96.2 fL Normal 80.0 - 100.0 fL [facility].; [employer], [facility]. Monocytes (Bld) [#/Vol] 420 {Cells}/uL Normal 200 - 950 {Cells}/uL [facility], [facility].; [employer], [facility]. Monocytes/100 WBC (Bld) 7 % Normal 0 - 13 % [facility], [facility].; [employer], [facility]. Neutrophils (Bld) [#/Vol] 4120 {Cells}/uL Normal 1500 - 7800 {Cells}/uL [facility], [facility].; [employer], [facility]. Neutrophils/100 WBC (Bld) 70 % Normal 38 - 80 % [facility] [employer] [facility], [facility].; [employer], [facility]. Platelets (Bld) [#/Vol] 206 10*3/uL Normal 140 - 400 10*3/uL [employer] [facility].; [employer], [facility]. RBC (Bld) [#/Vol] 4.12 10*6/uL Abnormal 4.20 - 5.8 0 10*6/uL [employer], [facility].; [employer] WBC (Bld) [#/Vol] 5.9 10*3/uL Normal 3.8 - 10.8 10*3/uL [facility].; [facility] Laboratory - Serology - non- microon 11-08-2010 Rheumatoid factor Qn 8 [IU]/mL Normal [facility]; [facility]. Laboratory - Chemistry and C hemistry - challengeon 10-18-2010 Cholesterol [Mass/Vol] 124 mg/dL Normal 0 - 200 mg/dL [facility]; [facility] Cholesterol in HDL [Mass/Vol] 47 mg/dL Normal 40 - 60 mg/dL [facility]; [facility] Cholesterol in LDL [Mass/Vol] 64 mg/dL Normal 0 - 100 mg/dL [facility]; [facility] Triglyceride [Mass/Vol] 64 mg/dL Normal 0 - 150 mg/dL [facility].; [facility] Vital Signs Date Time Vital Sign Value Performing Clinician Facility 02-12-2025 10:19040 Body height 173.99 cm Zaid Beasley [employer] [facility].; [facility] 02-12-2025 10:19040 Body mass index (BMI) [Ratio] 30.72 kg/m2 Zaid Ramos [facility].; [facility]. 02-12-2025 10:[id number] Body surface area Derived from formula 2.08 m2 Zaid Beasley [employer] REPA[employer] [facility].; [facility] 02-12-2025 10:19040 Body weight 92.99 kg Zaid Beasley [employer] REPA[employer] [facility].; [facility] 02-12-2025 10:[id number] Diastolic blood pressure 62 mm[Hg] Zaid Beasley [facility].; [facility]. Comment on above: Patient Position: Sitting; Cuff Location : Left Arm; Cuff Size: Standard 02-12-2025 10:19-0400 Heart rate 55 /min Zaid Beasley [employer] REPA[employer] [facility]; [facility]. Comment on above: Pattern: Regular 02-12-2025 10:19-0400 Systolic blood pressure 111 mm[Hg] Zaid Beasley [facility], [facility].; [facility] [employer] [facility], [employer]. Comment on above: Patient Position: Sitting; Cuff Location : Left Arm; Cuff Size: Standard 03-29-2021 10:44-0400 Body height 173.99 cm Alicia Wisdom [facility] [employer] [facility], [employer]. 03-29-2021 10:44-0400 Body mass index (BMI) [Ratio] 29.82 kg/m2 Alicia Wisdom [facility], [facility].; [facility] [employer] [facility], [employer]. 03-29-2021 10:44-0400 Body surface area Derived from formula 2.05 m2 [facility] Artis [facility], [facility].; [facility] [employer] [facility], [employer]. 03-29-2021 10:44-0400 Body weight 90.27 kg Peg Stuckey [facility], [facility].; [facility] [employer] [facility], [employer]. 03-29-2021 10:44-0400 Diastolic blood pressure 71 mm[Hg] PegToya Wisdom [facility], [facility].; [facility], [employer]. Comment on above: Patient Position: Sitting; Cuff Location : Left Arm; Cuff Size: Large 03-29-2021 10:44-0400 Heart rate 58 /min PegToya Wisdom [facility], [facility].; [facility], [employer]. Comment on above: Pattern: Regular 03-29-2021 10:44-0400 Systolic blood pressure 127 mm[Hg] Alicia Wisdom [facility], [facility].; [facility], [employer]. Comment on above: Patient Position: Sitting; Cuff Location : Left Arm; Cuff Size: Large 02-08-2021 10:38-0400 Body height 173.99 cm Elizabeth Aviles RN [facility], [employer].; [employer], [employer]. 02-08-2021 10:38-0400 Body mass index (BMI) [Ratio] 31.02 kg/m2 Elizabeth Aviles RN [facility], [employer].; [employer]. 02-08-2021 10:38-0400 Body surface area Derived from formula 2.09 m2 Elizabeth [facility]iles RN [facility].; [facility] [employer] [facility]. 02-08-2021 10:38-0400 Body temperature 99.7 [degF] Elizabeth Aviles RN [facility].; [employer]. Comment on above: Method: Tympanic 02-08-2021 10:38-0400 Body weight 93.9 kg Elizabeth Aviles RN [facility].; [employer]. 02-08-2021 10:38-0400 Diastolic blood pressure 63 mm[Hg] Elizabeth Aviles RN [facility] [employer] [facility].; [employer]. Comment on above: Patient Position: Sitting; Cuff Location : Left Arm; Cuff Size: Standard 02-08-2021 10:38-0400 Heart rate 72 /min Elizabeth Aviles RN [facility].; [employer]. Comment on above: Pattern: Regular 02-08-2021 10:38-0400 Inhaled oxygen concentration 21 % Elizabeth Aviles RN [facility].; [employer]. Comment on above: Room air 02-08-2021 10:38-0400 SaO2% (BldA) [Mass fraction] 97 % Elizabeth Aviles RN [facility] [employer] [facility].; [employer]. 02-08-2021 10:38-0400 Systolic blood pressure 108 mm[Hg] Elizabeth Aviles RN [facility] [employer] [facility].; [employer]. Comment on above: Patient Position: Sitting; Cuff Location : Left Arm; Cuff Size: Standard 01-12-2021 08:18-0400 Body height 173.99 cm [facility], [facility].; [facility] [employer]. 01-12-2021 08:18-0400 Body mass index (BMI) [Ratio] 30.72 kg/m2 [facility], [facility].; [employer]. 01-12-2021 08:18-0400 Body surface area Derived from formula 2.08 m2 Alicia Wisdom GUNSTOCK REPAIRER [facility], Inc.; [facility], Inc. 01-12-2021 08:18-0400 Body weight 92.99 kg Alicia Wisdom LPN [facility], Inc.; [facility], Inc. 01-12-2021 08:18-0400 Diastolic blood pressure 67 mm[Hg] Alicia Wisdom LPN [facility], Inc.; [facility], [employer]. Comment on above: Patient Position: Sitting; Cuff Location : Left Arm; Cuff Size: Large 01-12-2021 08:18-0400 Heart rate 57 /min Alicia Wisdom GUNSTOCK REPAIRER [facility], Inc.; [facility], Inc. Comment on above: Pattern: Regular 01-12-2021 08:18-0400 Systolic blood pressure 133 mm[Hg] Alicia Wisdom GUNSTOCK REPAIRER [facility], Inc.; [facility], [employer]. Comment on above: Patient Position: Sitting; Cuff Location : Left Arm; Cuff Size: Large 12-01-2020 10:40-0400 Body height 173.99 cm Alicia Wisdom [facility], Inc.; [facility], Inc. 12-01-2020 10:40-0400 Body mass index (BMI) [Ratio] 30.87 kg/m2 Alicia Wisdom GUNSTOCK REPAIRER [facility], Inc.; [facility], Inc. 12-01-2020 10:40-0400 Body surface area Derived from formula 2.08 m2 Alicia Wisdom GUNSTOCK REPAIRER [facility], [facility].; [facility], Inc. 12-01-2020 10:40-0400 Body temperature 97.5 [degF] PegToya Wisdom [facility], Inc.; [employer], [employer]. Comment on above: Method: Tympanic 12-01-2020 10:40-0400 Body weight 93.44 kg Alicia Wisdom GUNSTOCK REPAIRER [facility], Inc.; [facility], Inc. 12-01-2020 10:40-0400 Diastolic blood pressure 72 mm[Hg] Alicia Wisdom [facility], Inc.; [employer]. Comment on above: Patient Position: Sitting; Cuff Location : Left Arm; Cuff Size: Large 12-01-2020 10:40-0400 Heart rate 64 /min Alicia Wisdom [facility], Inc.; [employer], Inc. Comment on above: Pattern: Regular 12-01-2020 10:40-0400 Systolic blood pressure 137 mm[Hg] Alicia Wisdom [facility], Inc.; [employer], [employer]. Comment on above: Patient Position: Sitting; Cuff Location : Left Arm; Cuff Size: Large 02-21-2020 08:07-0400 Body height 173.99 cm Elizabeth Aviles RN [facility], [facility].; [facility], [facility]. 02-21-2020 08:07-0400 Body mass index (BMI) [Ratio] 31.32 kg/m2 Elizabeth Aviles RN [facility], [facility].; [facility], [facility]. 02-21-2020 08:07-0400 Body surface area Derived from formula 2.09 m2 Elizabeth Aviles RN [facility], [facility].; [facility], [facility]. 02-21-2020 08:07-0400 Body weight 94.8 kg Elizabeth Aviles RN [facility], [facility].; [facility], [facility]. 02-21-2020 08:07-0400 Diastolic blood pressure 62 mm[Hg] Elizabeth Aviles RN [facility].; [employer]. Comment on above: Patient Position: Sitting; Cuff Location : Left Arm; Cuff Size: Standard 02-21-2020 08:07-0400 Heart rate 62 /min Elizabeth Aviles RN [facility], [employer].; [employer]. Comment on above: Pattern: Regular 02-21-2020 08:07-0400 Systolic blood pressure 119 mm[Hg] Elizabeth Aviles RN [facility], [employer].; [employer]. Comment on above: Patient Position: Sitting; Cuff Location : Left Arm; Cuff Size: Standard 11-26-2019 13:57-0400 Body height 173.99 cm Minesh Jackson MD Work Phone: [employer].; [employer] 11-26-2019 13:57-0400 Body mass index (BMI) [Ratio] 30.87 kg/m2 Minesh Jackson MD Work Phone: [employer].; [employer] 11-26-2019 13:57-0400 Body surface area Derived from formula 2.08 m2 Minesh Jackson MD Work Phone: [employer].; [employer], [employer]. 11-26-2019 13:57-0400 Body weight 93.44 kg Minesh Jackson MD Work Phone: [employer].; [employer]. 11-26-2019 13:57-0400 Diastolic blood pressure 79 mm[Hg] Minesh Jackson MD Work Phone: [employer].; [employer]. Comment on above: Patient Position: Sitting; Cuff Location : Left Arm; Cuff Size: Large 11-26-2019 13:57-0400 Heart rate 62 /min Minesh Jackson MD Work Phone: [employer].; [employer]. Comment on above: Pattern: Regular 11-26-2019 13:57-0400 Systolic blood pressure 136 mm[Hg] Minesh Jackson MD Work Phone: [employer].; [employer]. Comment on above: Patient Position: Sitting; Cuff Location : Left Arm; Cuff Size: Large 07-01-2019 10:54-0500 Body height 173.99 cm [facility], [employer].; [employer]. 07-01-2019 10:54-0500 Body mass index (BMI) [Ratio] 30.27 kg/m2 [facility], [employer].; [employer]. 07-01-2019 10:54-0500 Body surface area Derived from formula 2.06 m2 [facility].; [employer], [employer] 07-01-2019 10:54-0500 Body weight 91.63 kg Alicia Wisdom [facility], Inc.; [employer], Inc. 07-01-2019 10:54-0500 Diastolic blood pressure 73 mm[Hg] Alicia Wisdom GUNSTOCK REPAIRER [facility], Inc.; [employer], [employer]. Comment on above: Patient Position: Sitting; Cuff Location : Left Arm; Cuff Size: Large 07-01-2019 10:54-0500 Heart rate 61 /min Alicia Wisdom [facility], Inc.; [employer], [employer]. Comment on above: Pattern: Regular 07-01-2019 10:54-0500 Systolic blood pressure 124 mm[Hg] Alicia Wisdom [facility], Inc.; [employer], [employer]. Comment on above: Patient Position: Sitting; Cuff Location : Left Arm; Cuff Size: Large 06-13-2019 14:07-0500 Body height 173.99 cm Joan Marqeus LPN [facility], Inc.; [employer], [employer] 06-13-2019 14:07-0500 Body mass index (BMI) [Ratio] 30.27 kg/m2 Joan Marques LPN [facility], Inc.; [employer], [employer] 06-13-2019 14:07-0500 Body surface area Derived from formula 2.06 m2 Joan Marques GUNSTOCK REPAIRER [facility], Inc.; [employer], [employer] 06-13-2019 14:07-0500 Body temperature 97.8 [degF] Joan Marques LPAl[facility] HospitalWorks[facility], Inc.; [employer], [employer]. Comment on above: Method: Tympanic 06-13-2019 14:07-0500 Body weight 91.63 kg Joan Marques LPN [facility] [employer], Inc.; [employer], [employer]. 06-13-2019 14:07-0500 Diastolic blood pressure 59 mm[Hg] [facility] [employer], Inc.; [employer], Inc. Comment on above: Patient Position: Sitting; Cuff Location : Left Arm; Cuff Size: Standard 06-13-2019 14:07-0500 Heart rate 66 /min Joan Marques LPWest [facility] CenterUn[facility].; [employer]. Comment on above: Pattern: Regular 06-13-2019 14:07-0500 Inhaled oxygen concentration 21 % Joan Marques [facility], Inc.; [employer]. Comment on above: Room air 06-13-2019 14:07-0500 SaO2% (BldA) [Mass fraction] 97 % Joan Marques [facility], Inc.; [employer]. 06-13-2019 14:07-0500 Systolic blood pressure 114 mm[Hg] [facility].; [employer]. Comment on above: Patient Position: Sitting; Cuff Location : Left Arm; Cuff Size: Standard 06-07-2019 13:58-0500 Body height 173.99 cm Anat Carter LPN [facility], [facility].; [employer]. 06-07-2019 13:58-0500 Body mass index (BMI) [Ratio] 30.87 kg/m2 [facility]at [facility].; [employer]. 06-07-2019 13:58-0500 Body surface area Derived from formula 2.08 m2 Anat Carter LPN [facility], Inc.; [employer]. 06-07-2019 13:58-0500 Body temperature 97.9 [degF] [facility]at [facility].; [employer]. Comment on above: Method: Tympanic 06-07-2019 13:58-0500 Body weight 93.44 kg Anat Carter GUNSTOCK REPAIRER [facility].; [employer]. 06-07-2019 13:58-0500 Diastolic blood pressure 62 mm[Hg] Anat Carter LPN [facility].; [employer]. Comment on above: Patient Position: Sitting; Cuff Location : Left Arm; Cuff Size: Standard 06-07-2019 13:58-0500 Heart rate 63 /min Anat Carter KARUNA [facility], Inc.; [employer]. Comment on above: Pattern: Regular 06-07-2019 13:58-0500 Inhaled oxygen concentration 21 % Anat Raul [facility], Inc.; [employer]. Comment on above: Room air 06-07-2019 13:58-0500 SaO2% (BldA) [Mass fraction] 97 % Anat Raul GUNSTOCK REPAIRER [facility], Inc.; [employer]. 06-07-2019 13:58-0500 Systolic blood pressure 123 mm[Hg] Anatbran Carter GUNSTOCK REPAIRER [facility], Inc.; [employer], [employer]. Comment on above: Patient Position: Sitting; Cuff Location : Left Arm; Cuff Size: Standard 05-28-2019 13:59-0500 Body height 173.99 cm Peg Artis [facility], Inc.; [employer], [employer] 05-28-2019 13:59-0500 Body mass index (BMI) [Ratio] 30.57 kg/m2 Peg Artis [facility], Inc.; [employer], [employer] 05-28-2019 13:59-0500 Body surface area Derived from formula 2.07 m2 [facility] [place] [facility], Inc.; [employer], [employer]. 05-28-2019 13:59-0500 Body weight 92.53 kg Peg Artis [facility], Inc.; [employer], [employer] 05-28-2019 13:59-0500 Diastolic blood pressure 90 mm[Hg] Alicia Wisdom [facility], Inc.; [employer]. Comment on above: Patient Position: Sitting; Cuff Location : Left Arm; Cuff Size: Large 05-28-2019 13:59-0500 Heart rate 66 /min Peg Artis [facility], Inc.; [employer]. Comment on above: Pattern: Regular 05-28-2019 13:59-0500 Systolic blood pressure 152 mm[Hg] Alicia Wisdom [facility], Inc.; [employer]. Comment on above: Patient Position: Sitting; Cuff Location : Left Arm; Cuff Size: Large 05-10-2019 10:03-0500 Body height 173.99 cm Elizabeth Aviles RN [employer].; [employer]. 05-10-2019 10:03-0500 Body mass index (BMI) [Ratio] 31.47 kg/m2 Elizabeth Aviles RN [employer].; [employer]. 05-10-2019 10:03-0500 Body surface area Derived from formula 2.1 m2 Elizabeth Aviles RN [employer].; [employer]. 05-10-2019 10:03-0500 Body temperature 97.2 [degF] Elizabeth Aviles RN [employer].; [employer]. Comment on above: Method: Tympanic 05-10-2019 10:03-0500 Body weight 95.26 kg Elizabeth Aviles RN [employer].; [employer]. 05-10-2019 10:03-0500 Diastolic blood pressure 75 mm[Hg] Elizabeth Aviles RN [employer].; [employer]. Comment on above: Patient Position: Sitting; Cuff Location : Left Arm; Cuff Size: Standard 05-10-2019 10:03-0500 Heart rate 62 /min Elizabeth Aviles RN [employer].; [employer]. Comment on above: Pattern: Regular 05-10-2019 10:03-0500 Inhaled oxygen concentration 21 % Elizabeth Aviles RN [employer].; [employer]. Comment on above: Room air 05-10-2019 10:03-0500 SaO2% (BldA) [Mass fraction] 98 % Elizabeth Aviles RN [employer].; [employer]. 05-10-2019 10:03-0500 Systolic blood pressure 164 mm[Hg] Elizabeth Aviles RN [employer].; [employer]. Comment on above: Patient Position: Sitting; Cuff Location : Left Arm; Cuff Size: Standard 04-29-2019 13:31-0500 Body height 173.99 cm Minesh Jacksno MD Work Phone: [employer].; [employer]. 04-29-2019 13:31-0500 Body mass index (BMI) [Ratio] 32.51 kg/m2 Minesh Jackson MD Work Phone: [employer].; [employer]. 04-29-2019 13:31-0500 Body surface area Derived from formula 2.13 m2 Minesh Jackson MD Work Phone: [employer].; [employer]. 04-29-2019 13:31-0500 Body weight 98.43 kg Minesh Jackson MD Work Phone: [employer].; [employer]. 04-29-2019 13:31-0500 Diastolic blood pressure 72 mm[Hg] Minesh Jackson MD Work Phone: [employer].; [employer]. Comment on above: Patient Position: Sitting; Cuff Location : Left Arm; Cuff Size: Standard 04-29-2019 13:31-0500 Heart rate 50 /min Minesh Jackson MD Work Phone: [employer].; [employer]. Comment on above: Pattern: Regular 04-29-2019 13:31-0500 Systolic blood pressure 152 mm[Hg] Minesh Jackson MD Work Phone: [employer].; [employer]. Comment on above: Patient Position: Sitting; Cuff Location : Left Arm; Cuff Size: Standard 04-12-2019 08:43-0400 Body height 173.99 cm Minesh Jackson MD Work Phone: [employer].; [employer]. 04-12-2019 08:43-0400 Body mass index (BMI) [Ratio] 32.36 kg/m2 Minesh Jackson MD Work Phone: [employer].; [employer]. 04-12-2019 08:43-0400 Body surface area Derived from formula 2.12 m2 Minesh Jackson MD Work Phone: [employer].; [employer]. 04-12-2019 08:43-0400 Body weight 97.98 kg Minesh Jackson MD Work Phone: [employer].; [employer]. 04-12-2019 08:43-0400 Diastolic blood pressure 66 mm[Hg] Minesh Jackson MD Work Phone: [employer].; [employer]. Comment on above: Patient Position: Sitting; Cuff Location : Left Arm; Cuff Size: Standard 04-12-2019 08:43-0400 Heart rate 50 /min Minesh Jackson MD Work Phone: [employer]; [employer]. Comment on above: Pattern: Regular 04-12-2019 08:43-0400 Systolic blood pressure 130 mm[Hg] Minesh Jackson MD Work Phone: [employer].; [employer]. Comment on above: Patient Position: Sitting; Cuff Location : Left Arm; Cuff Size: Standard 03-11-2019 13:50-0400 Body height 173.99 cm Alicia Wisdom [facility].; [employer]. 03-11-2019 13:50-0400 Body mass index (BMI) [Ratio] 31.17 kg/m2 [facility] Hospital[facility].; [employer]. 03-11-2019 13:50-0400 Body surface area Derived from formula 2.09 m2 [facility] Artis LPN [employer].; [employer]. 03-11-2019 13:50-0400 Body temperature 98.9 [degF] [facility] BeachSam[facility] HospitalEasy[facility].; [employer]. Comment on above: Method: Tympanic 03-11-2019 13:50-0400 Body weight 94.35 kg Peg Artis GUNSTOCK REPAIRER [employer].; [employer]. 03-11-2019 13:50-0400 Diastolic blood pressure 62 mm[Hg] Alicia Wisdom KARUNA [employer].; [employer]. Comment on above: Patient Position: Sitting; Cuff Location : Left Arm; Cuff Size: Large 03-11-2019 13:50-0400 Heart rate 57 /min Alicia Wisdom KARUNA [employer], Inc.; [employer]. Comment on above: Pattern: Regular 03-11-2019 13:50-0400 Systolic blood pressure 103 mm[Hg] Alicia Wisdom KARUNA [employer].; [employer]. Comment on above: Patient Position: Sitting; Cuff Location : Left Arm; Cuff Size: Large 02-11-2019 10:39-0400 Body height 173.99 cm Elizabeth Aviles RN [employer].; [employer]. 02-11-2019 10:39-0400 Body mass index (BMI) [Ratio] 31.32 kg/m2 Elizabeth Aviles RN [employer].; [employer]. 02-11-2019 10:39-0400 Body surface area Derived from formula 2.09 m2 Elizabeth Aviles RN [employer].; [employer]. 02-11-2019 10:39-0400 Body temperature 97.6 [degF] Elizabeth Aviles RN [employer].; [employer]. Comment on above: Method: Tympanic 02-11-2019 10:39-0400 Body weight 94.8 kg Elizabeth Aviles RN [employer].; [employer]. 02-11-2019 10:39-0400 Diastolic blood pressure 66 mm[Hg] Elizabeth Aviles RN [employer].; [employer]. Comment on above: Patient Position: Sitting; Cuff Location : Right Arm; Cuff Size: Standard 02-11-2019 10:39-0400 Heart rate 50 /min Elizabeth Aviles RN [employer].; [employer]. Comment on above: Pattern: Regular 02-11-2019 10:39-0400 Systolic blood pressure 138 mm[Hg] Elizabeth Aviles RN [facility] [employer] [facility].; [employer]. Comment on above: Patient Position: Sitting; Cuff Location : Right Arm; Cuff Size: Standard 12-25-2018 14:00-0400 Body height 173.99 cm Ольга Lola Sacha [facility], Inc.; [employer]. 12-25-2018 14:00-0400 Body mass index (BMI) [Ratio] 31.02 kg/m2 Ольга Davila Sacha [facility] [employer] [facility] Inc.; [employer]. 12-25-2018 14:00-0400 Body surface area Derived from formula 2.09 m2 Ольга Lola Sacha [facility] [employer] [facility].; [employer]. 12-25-2018 14:00-0400 Body weight 93.9 kg Ольга Davila Sacha [facility].; [employer]. 12-25-2018 14:00-0400 Diastolic blood pressure 65 mm[Hg] Ольга Davila Sacha [facility] Center[facility].; [employer]. Comment on above: Patient Position: Sitting; Cuff Location : Right Arm; Cuff Size: Standard 12-25-2018 14:00-0400 Heart rate 58 /min Ольга Lola Goncalves [facility] Center[facility].; [employer]. Comment on above: Pattern: Regular 12-25-2018 14:00-0400 Systolic blood pressure 113 mm[Hg] Ольга Davila Sacha [facility] CenterEasyQ[facility].; [employer]. Comment on above: Patient Position: Sitting; Cuff Location : Right Arm; Cuff Size: Standard 11-05-2018 09:20-0400 Body height 173.99 cm Elizabeth Aviles RN [facility] [employer].; [employer]. 11-05-2018 09:20-0400 Body mass index (BMI) [Ratio] 31.77 kg/m2 Elizabeth Aviles RN [facility] [employer] [facility].; [employer]. 11-05-2018 09:20-0400 Body surface area Derived from formula 2.11 m2 Elizabeth Aviles RN [facility], Inc.; [employer], [employer] 11-05-2018 09:20-0400 Body weight 96.16 kg Elizabeth Aviles RN [facility], Inc.; [employer], [employer] 11-05-2018 09:20-0400 Diastolic blood pressure 60 mm[Hg] Elizabeth Aviles RN [facility], Inc.; [employer]. Comment on above: Patient Position: Sitting; Cuff Location : Left Arm; Cuff Size: Standard 11-05-2018 09:20-0400 Heart rate 55 /min Elizabeth Aviles RN [facility], Inc.; [employer], [employer] Comment on above: Pattern: Regular 11-05-2018 09:20-0400 Systolic blood pressure 117 mm[Hg] Elizabeth Aviles RN [facility], Inc.; [employer], [employer]. Comment on above: Patient Position: Sitting; Cuff Location : Left Arm; Cuff Size: Standard 10-10-2018 11:33-0400 Body height 173.99 cm PegToya Wisdom GUNSTOCK REPAIRER [facility], Inc.; [employer], [employer] 10-10-2018 11:33-0400 Body mass index (BMI) [Ratio] 31.47 kg/m2 PegToya Wisdom LPN [facility], Inc.; [employer], [employer] 10-10-2018 11:33-0400 Body surface area Derived from formula 2.1 m2 PegToya Wisdom GUNSTOCK REPAIRER [facility], Inc.; [employer], [employer] 10-10-2018 11:33-0400 Body weight 95.26 kg PegToya Wisdom GUNSTOCK REPAIRER [employer], Inc.; [employer], [employer]. 10-10-2018 11:33-0400 Diastolic blood pressure 68 mm[Hg] Alicia Wisdom LPN [facility], Inc.; [employer], [employer]. Comment on above: Patient Position: Sitting; Cuff Location : Left Arm; Cuff Size: Large 10-10-2018 11:33-0400 Heart rate 56 /min Alicia Wisdom [facility], Inc.; [employer]. Comment on above: Pattern: Regular 10-10-2018 11:33-0400 Systolic blood pressure 131 mm[Hg] Alicia Wisdom [facility], Inc.; [employer]. Comment on above: Patient Position: Sitting; Cuff Location : Left Arm; Cuff Size: Large 09-28-2018 11:29-0400 Body height 173.99 cm [facility], Inc.; [employer]. 09-28-2018 11:29-0400 Body mass index (BMI) [Ratio] 31.77 kg/m2 Ольга Davila [facility], [employer].; [employer]. 09-28-2018 11:29-0400 Body surface area Derived from formula 2.11 m2 Ольга Davila SachaPottstown HospitalWorkshopLive, [employer].; [employer]. 09-28-2018 11:29-0400 Body temperature 98 [degF] Ольга Davila [facility]aPottstown HospitalEasyQasa.; [employer]. Comment on above: Method: Tympanic 09-28-2018 11:29-0400 Body weight 96.16 kg Ольга Davila [facility], Inc.; [employer] 09-28-2018 11:29-0400 Diastolic blood pressure 78 mm[Hg] Ольга Goncalves [facility] CenterWorkshopLive, Inc.; [employer]. Comment on above: Patient Position: Sitting; Cuff Location : Right Arm; Cuff Size: Standard 09-28-2018 11:29-0400 Heart rate 48 /min Ольга Goncalves [facility] CenterWorkshopLive, Inc.; [employer]. Comment on above: Pattern: Regular 09-28-2018 11:29-0400 Systolic blood pressure 162 mm[Hg] Ольга Goncalves [facility] CenterWorkshopLive, [employer].; [employer]. Comment on above: Patient Position: Sitting; Cuff Location : Right Arm; Cuff Size: Standard 07-23-2018 13:40-0500 Body height 173.99 cm Mary Harrell GUNSTOCK REPAIRER [facility] [employer] [employer].; [employer] 07-23-2018 13:40-0500 Body mass index (BMI) [Ratio] 30.87 kg/m2 Nelue Arnold Harrell GUNSTOCK REPAIRER [employer], Inc.; [employer], Inc[employer] 07-23-2018 13:40-0500 Body surface area Derived from formula 2.08 m2 Carole Arnold Harrell GUNSTOCK REPAIRER [employer] 07-23-2018 13:40-0500 Body weight 93.44 kg Mary Harrell GUNSTOCK REPAIRER [employer] 07-23-2018 13:40-0500 Diastolic blood pressure 54 mm[Hg] Carole Arnold Harrell GUNSTOCK REPAIRER [employer] Comment on above: Patient Position: Sitting; Cuff Location : Left Arm; Cuff Size: Standard 07-23-2018 13:40-0500 Heart rate 64 /min Mary Harrell GUNSTOCK REPAIRER [employer] Comment on above: Pattern: Regular 07-23-2018 13:40-0500 Systolic blood pressure 106 mm[Hg] Carole Arnold Harrell GUNSTOCK REPAIRER [employer] Comment on above: Patient Position: Sitting; Cuff Location : Left Arm; Cuff Size: Standard 04-30-2018 13:23-0500 Body height 173.99 cm Cookie Avila LPN [facility] [employer] 04-30-2018 13:23-0500 Body mass index (BMI) [Ratio] 30.27 kg/m2 Cookie Avila LPN [employer] 04-30-2018 13:23-0500 Body surface area Derived from formula 2.06 m2 Cookie Avila LPN [facility] [employer] [employer] 04-30-2018 13:23-0500 Body weight 91.63 kg Cookie Avila LPN [employer] 04-30-2018 13:23-0500 Diastolic blood pressure 70 mm[Hg] Cookie Avila LPN [facility] [employer], [employer]. Comment on above: Patient Position: Sitting; Cuff Location : Left Arm; Cuff Size: Standard 04-30-2018 13:23-0500 Heart rate 56 /min Cookie Avila LPN [facility], Inc.; [employer] Comment on above: Pattern: Regular 04-30-2018 13:23-0500 Systolic blood pressure 149 mm[Hg] Cookie Avila LPN [facility] [employer] [employer] Comment on above: Patient Position: Sitting; Cuff Location : Left Arm; Cuff Size: Standard 04-02-2018 14:06-0400 Body height 173.99 cm Neilee L Vess GUNSTOCK REPAIRER [facility] [employer] 04-02-2018 14:06-0400 Body mass index (BMI) [Ratio] 29.82 kg/m2 Neilee L Vess GUNSTOCK REPAIRER [facility] [employer] 04-02-2018 14:06-0400 Body surface area Derived from formula 2.05 m2 Neilee L Vess GUNSTOCK REPAIRER [facility] [employer] 04-02-2018 14:06-0400 Body weight 90.27 kg Neilee L Vess GUNSTOCK REPAIRER [facility] [employer] 04-02-2018 14:06-0400 Diastolic blood pressure 56 mm[Hg] Neilee L Vess GUNSTOCK REPAIRER [facility] [employer] Comment on above: Patient Position: Sitting; Cuff Location : Right Arm; Cuff Size: Standard 04-02-2018 14:06-0400 Heart rate 71 /min Neilee L Vess GUNSTOCK REPAIRER [employer], [employer]. Comment on above: Pattern: Regular 04-02-2018 14:06-0400 Systolic blood pressure 106 mm[Hg] Neilee L Vess GUNSTOCK REPAIRER [facility] [employer] Comment on above: Patient Position: Sitting; Cuff Location : Right Arm; Cuff Size: Standard 03-23-2018 14:15-0400 Body height 173.99 cm Elizabeth Aviles RN [employer] 03-23-2018 14:15-0400 Body mass index (BMI) [Ratio] 29.97 kg/m2 Elizabeth Aviles RN [facility] [employer] 03-23-2018 14:15-0400 Body surface area Derived from formula 2.05 m2 Elizabeth Aviles RN [employer] 03-23-2018 14:15-0400 Body weight 90.72 kg Elizabeth Aviles RN [employer] 03-23-2018 14:15-0400 Diastolic blood pressure 65 mm[Hg] Elizabeth Aviles RN [employer]. Comment on above: Patient Position: Sitting; Cuff Location : Right Arm; Cuff Size: Standard 03-23-2018 14:15-0400 Heart rate 67 /min Elizabeth Aviles RN [employer]. Comment on above: Pattern: Regular 03-23-2018 14:15-0400 Systolic blood pressure 112 mm[Hg] Elizabeth Aviles RN [employer]. Comment on above: Patient Position: Sitting; Cuff Location : Right Arm; Cuff Size: Standard 12-06-2017 07:47-0400 Body height 173.99 cm Carie Ortiz LPN [employer]. 12-06-2017 07:47-0400 Body mass index (BMI) [Ratio] 29.52 kg/m2 Carie K Mutersbaugh KARUNA [employer]. 12-06-2017 07:47-0400 Body surface area Derived from formula 2.04 m2 Carie K Enriqueersbaerna BECKMAN [employer] 12-06-2017 07:47-0400 Body weight 89.36 kg Carie K Mutersbaerna BECKMAN [employer]. 12-06-2017 07:47-0400 Diastolic blood pressure 70 mm[Hg] Carie K Mutersbaugh GUNSTOCK REPAIRER [facility] [employer] Comment on above: Patient Position: Sitting; Cuff Location : Left Arm; Cuff Size: Standard 12-06-2017 07:47-0400 Heart rate 84 /min Carie K Mutersbaugh GUNSTOCK REPAIRER [facility], [facility].; [employer] Comment on above: Pattern: Regular 12-06-2017 07:47-0400 Systolic blood pressure 130 mm[Hg] Carie K Mutersbaugh GUNSTOCK REPAIRER [facility] [employer] Comment on above: Patient Position: Sitting; Cuff Location : Left Arm; Cuff Size: Standard 08-14-2017 11:28-0500 Body weight 90.27 kg Mercedes Guajardo LPN [facility], [facility] [employer] 08-14-2017 11:28-0500 Diastolic blood pressure 64 mm[Hg] Mercedes Guajardo LPN [facility] [employer] Comment on above: Patient Position: Sitting; Cuff Location : Left Arm; Cuff Size: Standard 08-14-2017 11:28-0500 Heart rate 76 /min Mercedes Guajardo LPN [facility] [employer] Comment on above: Pattern: Regular 08-14-2017 11:28-0500 Systolic blood pressure 150 mm[Hg] Mercedes Guajardo LPN [facility] [employer] Comment on above: Patient Position: Sitting; Cuff Location : Left Arm; Cuff Size: Standard 07-28-2017 09:36-0500 Body height 173.99 cm Mercedes Guajardo LPN [facility] [employer] 07-28-2017 09:36-0500 Body mass index (BMI) [Ratio] 29.82 kg/m2 Mercedes Guajardo LPN [facility] [employer] [employer] 07-28-2017 09:36-0500 Body surface area Derived from formula 2.05 m2 Mercedes Guajardo LPN [facility] [employer] [employer] 07-28-2017 09:36-0500 Body weight 90.27 kg Mercedes Guajardo KARUNA [facility] [employer] [employer]. 07-28-2017 09:36-0500 Diastolic blood pressure 74 mm[Hg] Mercedes Guajardo GUNSTOCK REPAIRER [facility] [employer], [employer]. Comment on above: Patient Position: Sitting; Cuff Location : Left Arm; Cuff Size: Standard 07-28-2017 09:36-0500 Heart rate 56 /min Mercedes Guajardo GUNSTOCK REPAIRER [facility] [employer]. Comment on above: Pattern: Regular 07-28-2017 09:36-0500 Systolic blood pressure 139 mm[Hg] Mercedes Guajardo GUNSTOCK REPAIRER [employer], [employer]. Comment on above: Patient Position: Sitting; Cuff Location : Left Arm; Cuff Size: Standard 05-12-2017 10:59-0500 Body height 173.99 cm Mercedes Guajardo KARUNA [facility] [employer] [employer] 05-12-2017 10:59-0500 Body mass index (BMI) [Ratio] 19.33 kg/m2 Mercedes Guajardo GUNSTOCK REPAIRER [facility] [employer] [employer] 05-12-2017 10:59-0500 Body surface area Derived from formula 1.71 m2 Mercedes Guajardo GUNSTOCK REPAIRER [facility] [employer] [employer] 05-12-2017 10:59-0500 Body weight 58.51 kg Mercedes Guajardo KARUNA [facility] [employer] [employer], [employer]. 05-12-2017 10:59-0500 Diastolic blood pressure 62 mm[Hg] Mercedes Guajardo KARUNA [facility] [employer]. Comment on above: Patient Position: Sitting; Cuff Location : Left Arm; Cuff Size: Standard 05-12-2017 10:59-0500 Heart rate 56 /min Mercedes Guajardo KARUNA [employer]. Comment on above: Pattern: Regular 05-12-2017 10:59-0500 Systolic blood pressure 112 mm[Hg] Mercedeschuyita Guajardo KARUNA [employer]. Comment on above: Patient Position: Sitting; Cuff Location : Left Arm; Cuff Size: Standard 10-04-2016 10:44-0400 Body height 172.72 cm Alicia Wisdom LPN [facility], [facility].; [employer] 10-04-2016 10:44-0400 Body mass index (BMI) [Ratio] 30.26 kg/m2 Alicia Wisdom GUNSTOCK REPAIRER [facility], Inc.; [employer]. 10-04-2016 10:44-0400 Body surface area Derived from formula 2.04 m2 Alicia Wisdom LPN [facility], Inc.; [employer]. 10-04-2016 10:44-0400 Body temperature 97.9 [degF] Alicia Wisdom [facility], [employer]. Comment on above: Method: Tympanic 10-04-2016 10:44-0400 Body weight 90.27 kg Alicia Wisdom LPN [facility], Inc[facility] [employer]. 10-04-2016 10:44-0400 Diastolic blood pressure 69 mm[Hg] Alicia Wisdom GUNSTOCK REPAIRER [facility], [employer]. Comment on above: Patient Position: Sitting; Cuff Location : Left Arm; Cuff Size: Large 10-04-2016 10:44-0400 Heart rate 65 /min Alicia Wisdom LPN [facility], [employer]. Comment on above: Pattern: Regular 10-04-2016 10:44-0400 Inhaled oxygen concentration 21 % Alicia Wisdom [facility], [employer]. Comment on above: Room air 10-04-2016 10:44-0400 SaO2% (BldA) [Mass fraction] 97 % Alicia Wisdom [facility], Inc[facility] [employer]. 10-04-2016 10:44-0400 Systolic blood pressure 127 mm[Hg] Alicia Wisdom [facility], [employer].; [employer]. Comment on above: Patient Position: Sitting; Cuff Location : Left Arm; Cuff Size: Large 09-02-2016 10:43-0400 Body temperature 97.8 [degF] Mercedes Guajardo LPN [employer]. 09-02-2016 10:43-0400 Body weight 88.91 kg Mercedeschuyita Guajardo KARUNA [employer]. 09-02-2016 10:43-0400 Diastolic blood pressure 70 mm[Hg] Mercedes Guajardo LPN [employer], [employer].; [employer]. Comment on above: Patient Position: Sitting; Cuff Location : Left Arm; Cuff Size: Standard 09-02-2016 10:43-0400 Systolic blood pressure 157 mm[Hg] Mercedes Guajardo LPN [employer], [employer].; [employer]. Comment on above: Patient Position: Sitting; Cuff Location : Left Arm; Cuff Size: Standard 03-07-2016 10:56-0400 Body weight 87.09 kg Mercedes Guajardo LPN [employer], [employer].; [employer]. 03-07-2016 10:56-0400 Diastolic blood pressure 67 mm[Hg] Mercedeschuyita Guajardo KARUNA [employer], [employer].; [employer]. Comment on above: Patient Position: Sitting; Cuff Location : Left Arm; Cuff Size: Standard 03-07-2016 10:56-0400 Heart rate 58 /min Mercedes Guajardo LPN [employer], [employer].; [employer]. Comment on above: Pattern: Regular 03-07-2016 10:56-0400 Systolic blood pressure 123 mm[Hg] Mercedes Guajardo LPN [employer], [employer].; [employer]. Comment on above: Patient Position: Sitting; Cuff Location : Left Arm; Cuff Size: Standard 01-18-2016 11:32-0400 Body temperature 97.1 [degF] Mercedes Guajardo LPN [employer], [employer].; [employer]. 01-18-2016 11:32-0400 Body weight 86.64 kg Mercedes Guajardo LPN [employer]. 01-18-2016 11:32-0400 Diastolic blood pressure 58 mm[Hg] Mercedes Guajardo LPN [facility], Inc[facility], [employer]. Comment on above: Patient Position: Sitting; Cuff Location : Left Arm; Cuff Size: Standard 01-18-2016 11:32-0400 Heart rate 54 /min Mercedes Guajardo [facility], [facility] [employer] Comment on above: Pattern: Regular 01-18-2016 11:32-0400 Systolic blood pressure 121 mm[Hg] Mercedes Guajardo [facility], Inc[facility] [employer] Comment on above: Patient Position: Sitting; Cuff Location : Left Arm; Cuff Size: Standard 09-01-2015 10:45-0400 Body height 172.72 cm Alicia Wisdom [facility], [facility] [employer] 09-01-2015 10:45-0400 Body mass index (BMI) [Ratio] 30.11 kg/m2 [facility] Artis [facility], Inc.; [facility] [employer] 09-01-2015 10:45-0400 Body surface area Derived from formula 2.04 m2 Peg Stuckey [facility], [facility].; [facility], [employer]. 09-01-2015 10:45-0400 Body temperature 55 [degF] PegToya Wisdom [facility], [facility].; [facility], [employer]. Comment on above: Method: Tympanic 09-01-2015 10:45-0400 Body weight 89.81 kg Alicia Wisdom [facility], [facility] [employer] 09-01-2015 10:45-0400 Diastolic blood pressure 74 mm[Hg] Alicia Wisdom [facility], [facility] [employer], [employer]. Comment on above: Patient Position: Sitting; Cuff Location : Left Arm; Cuff Size: Large 09-01-2015 10:45-0400 Systolic blood pressure 145 mm[Hg] Alicia Wisdom [facility], Inc[facility] [employer], [employer]. Comment on above: Patient Position: Sitting; Cuff Location : Left Arm; Cuff Size: Large 06-03-2015 10:22-0500 Body height 172.72 cm Alicia Wisdom GUNSTOCK REPAIRER [facility], Inc.; [employer] [facility] 06-03-2015 10:22-0500 Body mass index (BMI) [Ratio] 30.11 kg/m2 Alicia Wisdom [facility], [facility].; [facility] [employer] 06-03-2015 10:220500 Body surface area Derived from formula 2.04 m2 Alicia Wisdom [facility], Inc.; [facility] 06-03-2015 10:220500 Body weight 89.81 kg Alicia Wisdom [facility], Inc.; [employer], [employer]. 06-03-2015 10:220500 Diastolic blood pressure 82 mm[Hg] Alicia Wisdom [facility], [facility] [employer], [employer]. Comment on above: Patient Position: Sitting; Cuff Location : Left Arm; Cuff Size: Large 06-03-2015 10:22-0500 Heart rate 69 /min Alicia Wisdom [facility], [facility] [employer], [employer]. Comment on above: Pattern: Regular 06-03-2015 10:22-0500 Systolic blood pressure 133 mm[Hg] Alicia Wisdom [facility], Inc[facility] [employer], [employer]. Comment on above: Patient Position: Sitting; Cuff Location : Left Arm; Cuff Size: Large 05-11-2015 13:0500 Body weight 89.81 kg Mercedes Guajardo LPN [facility], Inc.; [employer] 05-11-2015 13:01-0500 Diastolic blood pressure 69 mm[Hg] Mercedes Guajardo LPN [facility] [employer], [employer]. Comment on above: Patient Position: Sitting; Cuff Location : Left Arm; Cuff Size: Standard 05-11-2015 13:01-0500 Heart rate 60 /min Mercedes Guajardo LPN [facility], Inc[facility] [employer], [employer]. Comment on above: Pattern: Regular 05-11-2015 13:01-0500 Systolic blood pressure 155 mm[Hg] Mercedes [facility], [facility].; [employer] [facility], [facility]. Comment on above: Patient Position: Sitting; Cuff Location : Left Arm; Cuff Size: Standard 02-04-2015 13:140400 Body height 172.72 cm Carie Ortiz GUNSTOCK REPAIRER [facility], Inc.; [facility] [employer] 02-04-2015 13:14-0400 Body mass index (BMI) [Ratio] 27.82 kg/m2 Carie Kenney Callbaugh GUNSTOCK REPAIRER [facility], Inc.; [facility], [facility]. 02-04-2015 13:140400 Body surface area Derived from formula 1.97 m2 Carie Kenney Callbaugh GUNSTOCK REPAIRER [facility], [facility].; [facility], [facility]. 02-04-2015 13:140400 Body weight 83.01 kg Carieolegario Callbaerna GUNSTOCK REPAIRER [facility], [facility].; [facility] [employer], [facility]. 02-04-2015 13:140400 Diastolic blood pressure 63 mm[Hg] Carie Kenney Callbaugh GUNSTOCK REPAIRER [facility], [facility].; [employer], [employer]. Comment on above: Patient Position: Sitting; Cuff Location : Left Arm; Cuff Size: Standard 02-04-2015 13:140400 Heart rate 73 /min Carie Ortiz GUNSTOCK REPAIRER [facility], [facility].; [employer] Comment on above: Pattern: Regular 02-04-2015 13:140400 Systolic blood pressure 115 mm[Hg] Carie Kenney Callbaugh GUNSTOCK REPAIRER [facility], [facility].; [facility], [facility]. Comment on above: Patient Position: Sitting; Cuff Location : Left Arm; Cuff Size: Standard 12-23-2014 11:0400 Body height 172.72 cm Alicia Wisdom GUNSTOCK REPAIRER [facility], [facility].; [facility], [employer]. 12-23-2014 11:210400 Body mass index (BMI) [Ratio] 26.91 kg/m2 Alicia Wisdom GUNSTOCK REPAIRER [facility], Inc.; [facility] [employer], [employer]. 12-23-2014 11:210400 Body surface area Derived from formula 1.94 m2 Alicia Wisdom [facility], Inc[facility], [employer]. 12-23-2014 11:21-0400 Body temperature 97.6 [degF] Alicia Wisdom GUNSTOCK REPAIRER [facility], Inc.; [facility] [employer] [facility] [employer] Comment on above: Method: Tympanic 12-23-2014 11:21-0400 Body weight 80.29 kg Alicia Wisdom [facility], Inc.; [employer] 12-23-2014 11:21-0400 Diastolic blood pressure 67 mm[Hg] Alicia Wisdmo [facility], Inc.; [employer], [employer]. Comment on above: Patient Position: Sitting; Cuff Location : Left Arm; Cuff Size: Large 12-23-2014 11:21-0400 Heart rate 71 /min Alicia Wisdom GUNSTOCK REPAIRER [facility], Inc.; [employer] Comment on above: Pattern: Regular 12-23-2014 11:21-0400 Inhaled oxygen concentration 21 % Alicia Wisdom [facility], Inc[facility] [employer] Comment on above: Room air 12-23-2014 11:21-0400 SaO2% (BldA) [Mass fraction] 98 % Alicia Wisdom [facility], [facility].; [employer] 12-23-2014 11:21-0400 Systolic blood pressure 118 mm[Hg] Alicia Wisdom [facility], Inc[facility] [employer], [employer]. Comment on above: Patient Position: Sitting; Cuff Location : Left Arm; Cuff Size: Large 11-25-2014 09:37-0400 Body height 172.72 cm Alicia Wisdom LPN [facility], Inc[facility], [employer]. 11-25-2014 09:37-0400 Body mass index (BMI) [Ratio] 26.91 kg/m2 Alicia Wisdom [facility], Inc.; [employer] 11-25-2014 09:37-0400 Body surface area Derived from formula 1.94 m2 Peg Artis [facility], Inc.; [employer]. 11-25-2014 09:37-0400 Body weight 80.29 kg Alicia Wisdom [facility], [facility] [employer] 11-25-2014 09:37-0400 Diastolic blood pressure 74 mm[Hg] Alicia Wisdom [facility], [employer] [employer]. Comment on above: Patient Position: Sitting; Cuff Location : Left Arm; Cuff Size: Large 11-25-2014 09:37-0400 Heart rate 65 /min Alicia Wisdom [facility], [employer] [employer]. Comment on above: Pattern: Regular 11-25-2014 09:37-0400 Systolic blood pressure 123 mm[Hg] Alicia Wisdom [facility], [employer] [employer]. Comment on above: Patient Position: Sitting; Cuff Location : Left Arm; Cuff Size: Large 10-17-2014 13:21-0400 Body weight 80.29 kg Mercedes Guajardo [facility], [employer] [employer], [employer]. 10-17-2014 13:21-0400 Diastolic blood pressure 69 mm[Hg] Mercedes [facility], [employer]. Comment on above: Patient Position: Sitting; Cuff Location : Left Arm; Cuff Size: Standard 10-17-2014 13:21-0400 Heart rate 62 /min Mercedes Guajardo [facility] [employer], [employer]. Comment on above: Pattern: Regular 10-17-2014 13:21-0400 Systolic blood pressure 139 mm[Hg] Mercedes [facility], [employer]. Comment on above: Patient Position: Sitting; Cuff Location : Left Arm; Cuff Size: Standard 10-07-2014 09:36-0400 Body temperature 97.2 [degF] Mary Harrell [facility], [employer]. Comment on above: Method: Tympanic 10-07-2014 09:36-0400 Body weight 81.65 kg Mary Harrell [facility] [employer] 10-07-2014 09:36-0400 Diastolic blood pressure 65 mm[Hg] Carole Arnold Vess GUNSTOCK REPAIRER [facility], Inc.; [employer] Comment on above: Patient Position: Sitting; Cuff Location : Right Arm; Cuff Size: Standard 10-07-2014 09:36-0400 Heart rate 57 /min Silviailee Arnold Vess GUNSTOCK REPAIRER [facility], Inc.; [employer] Comment on above: Pattern: Regular 10-07-2014 09:36-0400 Systolic blood pressure 113 mm[Hg] Neilee L Vess GUNSTOCK REPAIRER [facility], Inc.; [employer] Comment on above: Patient Position: Sitting; Cuff Location : Right Arm; Cuff Size: Standard 08-25-2014 13:21-0400 Body height 172.72 cm Alicia Wisdom [facility], Inc.; [employer] 08-25-2014 13:21-0400 Body mass index (BMI) [Ratio] 26.91 kg/m2 Alicia Wisdom [facility], Inc.; [employer] 08-25-2014 13:21-0400 Body surface area Derived from formula 1.94 m2 [facility] Artis [facility], Inc.; [facility], [facility] 08-25-2014 13:21-0400 Body weight 80.29 kg Alicia Wisdom [facility], Inc.; [employer] 08-25-2014 13:21-0400 Diastolic blood pressure 67 mm[Hg] Alicia Wisdom [facility], Inc.; [employer], [employer]. Comment on above: Patient Position: Sitting; Cuff Location : Left Arm; Cuff Size: Large 08-25-2014 13:21-0400 Heart rate 67 /min PegToya Wisdom [facility], Inc.; [employer], [employer]. Comment on above: Pattern: Regular 08-25-2014 13:21-0400 Systolic blood pressure 120 mm[Hg] Alicia Wisdom [facility], Inc.; [employer], [employer]. Comment on above: Patient Position: Sitting; Cuff Location : Left Arm; Cuff Size: Large 11-25-2014 09:20-0500 Body height 172.72 cm Joan Marques [facility] [employer] 05-13-2014 09:20-0500 Body mass index (BMI) [Ratio] 26.93 kg/m2 Joan Marques GUNSTOCK REPAIRER [facility], Inc.; [employer] 05-13-2014 09:20-0500 Body surface area Derived from formula 1.94 m2 Joan Bonillaclay [facility], Inc.; [employer] 05-13-2014 09:20-0500 Body weight 80.34 kg Joan Marques [facility], Inc.; [employer] 05-13-2014 09:20-0500 Diastolic blood pressure 67 mm[Hg] Joan Bonillaguerdazoey [facility], Inc.; [employer] Comment on above: Patient Position: Sitting; Cuff Location : Left Arm; Cuff Size: Standard 05-13-2014 09:20-0500 Heart rate 53 /min Joan Marques [facility], Inc[facility] [employer] Comment on above: Pattern: Regular 05-13-2014 09:20-0500 Systolic blood pressure 123 mm[Hg] Joan Marques GUNSTOCK REPAIRER [facility] [employer] [facility] [employer] Comment on above: Patient Position: Sitting; Cuff Location : Left Arm; Cuff Size: Standard 03-10-2014 10:50-0400 Body height 172.72 cm Alicia Wisdom GUNSTOCK REPAIRER [facility], [facility].; [employer] 03-10-2014 10:50-0400 Body mass index (BMI) [Ratio] 26.15 kg/m2 Alicia Wisdom [facility] [employer] 03-10-2014 10:50-0400 Body surface area Derived from formula 1.92 m2 Alicia Pittman [place] [facility] [employer] 03-10-2014 10:50-0400 Body temperature 96.6 [degF] Alicia Wisdom KARUNA [facility] [employer]. Comment on above: Method: Tympanic 03-10-2014 10:50-0400 Body weight 78.02 kg Alicia Wisdom GUNSTOCK REPAIRER [facility] [employer] 03-10-2014 10:50-0400 Diastolic blood pressure 68 mm[Hg] Alicia Wisdom [facility] [employer] Comment on above: Patient Position: Sitting; Cuff Location : Left Arm; Cuff Size: Large 03-10-2014 10:50-0400 Heart rate 53 /min Alicia Wisdom [facility] [employer] [facility] [employer]. Comment on above: Pattern: Regular 03-10-2014 10:50-0400 Systolic blood pressure 116 mm[Hg] Alicia Wisdom GUNSTOCK REPAIR[employer] [facility] [employer] [facility] [employer] Comment on above: Patient Position: Sitting; Cuff Location : Left Arm; Cuff Size: Large 03-03-2014 13:45-0400 Body height 172.72 cm Joan Marques LPN [facility] [employer] 03-03-2014 13:45-0400 Body mass index (BMI) [Ratio] 26.15 kg/m2 Joan Marques LPN [facility] [employer] 03-03-2014 13:45-0400 Body surface area Derived from formula 1.92 m2 Joan Marques LPN [facility] [employer] 03-03-2014 13:45-0400 Body temperature 97.7 [degF] Joan Marques LPN [employer]. Comment on above: Method: Tympanic 03-03-2014 13:45-0400 Body weight 78.02 kg Joan Marques LPN [employer] [employer] 03-03-2014 13:45-0400 Diastolic blood pressure 64 mm[Hg] Joan Marques LPN [facility], [facility], [employer]. Comment on above: Patient Position: Sitting; Cuff Location : Left Arm; Cuff Size: Standard 03-03-2014 13:45-0400 Heart rate 57 /min Joan Marques GUNSTOCK REPAIRER [facility], [facility] [employer] [facility] Comment on above: Pattern: Regular 03-03-2014 13:45-0400 Inhaled oxygen concentration 21 % Jona Marques [facility] Comment on above: Room air 03-03-2014 13:45-0400 SaO2% (BldA) [Mass fraction] 99 % Joandoug Marques [facility] 03-03-2014 13:45-0400 Systolic blood pressure 111 mm[Hg] Joan Marques [facility] [employer] Comment on above: Patient Position: Sitting; Cuff Location : Left Arm; Cuff Size: Standard 11-01-2013 09:29-0400 Body weight 82.56 kg Mercedes Guajardo [facility] [employer] 11-01-2013 09:29-0400 Diastolic blood pressure 65 mm[Hg] Mercedes Guajardo [facility], [facility].; [employer] Comment on above: Patient Position: Sitting; Cuff Location : Left Arm; Cuff Size: Standard 11-01-2013 09:29-0400 Heart rate 63 /min Mercedes Guajardo LPN [facility], [facility] [employer] [employer]. Comment on above: Pattern: Regular 11-01-2013 09:29-0400 Systolic blood pressure 152 mm[Hg] Mercedes Guajardo [facility] [employer] [employer]. Comment on above: Patient Position: Sitting; Cuff Location : Left Arm; Cuff Size: Standard 09-18-2013 13:25-0400 Body height 172.72 cm Alicia Wisdom GUNSTOCK REPAIRER [facility], [facility] 09-18-2013 13:25-0400 Body mass index (BMI) [Ratio] 28.13 kg/m2 Alicia Wisdom GUNSTOCK REPAIRER [facility] [employer] 09-18-2013 13:25-0400 Body surface area Derived from formula 1.98 m2 Alicia Wisdom [facility] [employer] 09-18-2013 13:25-0400 Body weight 83.92 kg Alicia Wisdom [facility] [employer] 09-18-2013 13:25-0400 Diastolic blood pressure 67 mm[Hg] Alicia Wisdom [facility] [employer] Comment on above: Patient Position: Sitting; Cuff Location : Left Arm; Cuff Size: Large 09-18-2013 13:25-0400 Heart rate 59 /min Alicia Wisdom [facility] [employer] Comment on above: Pattern: Regular 09-18-2013 13:25-0400 Systolic blood pressure 122 mm[Hg] Alicia Wisdom [facility] [employer] Comment on above: Patient Position: Sitting; Cuff Location : Left Arm; Cuff Size: Large 07-11-2013 11:03-0500 Body height 172.72 cm Joan Marques LPN [facility] [employer] 07-11-2013 11:03-0500 Body mass index (BMI) [Ratio] 28.31 kg/m2 Joan Jerald GUNSTOCK REPAIRER [facility] [employer] 07-11-2013 11:03-0500 Body surface area Derived from formula 1.98 m2 Joan Jerald GUNSTOCK REPAIRER [facility] [employer] 07-11-2013 11:03-0500 Body temperature 97.8 [degF] Joan Marques [facility] [employer] Comment on above: Method: Tympanic 07-11-2013 11:03-0500 Body weight 84.45 kg [facility] [employer] 07-11-2013 11:03-0500 Diastolic blood pressure 69 mm[Hg] Joan Bonillaclay BECKMAN [facility], [employer]. Comment on above: Patient Position: Sitting; Cuff Location : Left Arm; Cuff Size: Standard 07-11-2013 11:03-0500 Heart rate 53 /min Joandoug Marques GUNSTOCK REPAIRER [facility], [facility] [employer]. Comment on above: Pattern: Regular 07-11-2013 11:03-0500 Inhaled oxygen concentration 21 % Joan Marques [facility] [employer]. Comment on above: Room air 07-11-2013 11:03-0500 SaO2% (BldA) [Mass fraction] 98 % Joan Chadclay GUNSTOCK REPAIRER [facility], [facility] [employer]. 07-11-2013 11:03-0500 Systolic blood pressure 141 mm[Hg] Joan Jerald BECKMAN [facility], [employer]. Comment on above: Patient Position: Sitting; Cuff Location : Left Arm; Cuff Size: Standard 05-29-2013 13:41-0500 Body weight 88 kg Alicia Wisdom GUNSTOCK REPAIRER [facility] [employer]. 05-29-2013 13:41-0500 Diastolic blood pressure 71 mm[Hg] Alicia Wisdom [facility] [employer]. Comment on above: Patient Position: Sitting; Cuff Location : Left Arm; Cuff Size: Large 05-29-2013 13:41-0500 Heart rate 58 /min Alicia Wisdom [facility] [employer] [facility] [employer] Comment on above: Pattern: Regular 05-29-2013 13:41-0500 Systolic blood pressure 129 mm[Hg] Alicia Wisdom GUNSTOCK REPAIRER [facility] [employer]. Comment on above: Patient Position: Sitting; Cuff Location : Left Arm; Cuff Size: Large 09-17-2012 09:57-0400 Body weight 86.64 kg Mercedes E Bennett [facility] [employer]. 09-17-2012 09:57-0400 Diastolic blood pressure 61 mm[Hg] Mercedes Guajardo LPN [facility], [employer]. Comment on above: Patient Position: Sitting; Cuff Location : Left Arm; Cuff Size: Standard 09-17-2012 09:57-0400 Heart rate 55 /min Mercedes Guajardo LPN [facility], [facility] [employer]. Comment on above: Pattern: Regular 09-17-2012 09:57-0400 Systolic blood pressure 124 mm[Hg] Mercedes Guajardo LPN [facility], [facility] [employer], [employer]. Comment on above: Patient Position: Sitting; Cuff Location : Left Arm; Cuff Size: Standard 2012 09:55-0400 Body temperature 98.6 [degF] Joan Marques [facility] [employer]. Comment on above: Method: Tympanic 2012 09:55-0400 Body weight 86.18 kg Joan Marques LPN [facility], [facility] [employer], [employer]. 2012 09:55-0400 Diastolic blood pressure 73 mm[Hg] [facility] [employer], [employer]. Comment on above: Patient Position: Sitting; Cuff Location : Left Arm; Cuff Size: Standard 2012 09:55-0400 Heart rate 68 /min Joan Marques LPN [facility], [facility] [employer]. Comment on above: Pattern: Regular 2012 09:55-0400 Inhaled oxygen concentration 21 % Joan Marques [facility] [employer] Comment on above: Room air 2012 09:55-0400 SaO2% (BldA) [Mass fraction] 98 % Joan Marques LPN [facility] [employer] 2012 09:55-0400 Systolic blood pressure 132 mm[Hg] Joan Marques LPN [facility], [facility], [employer]. Comment on above: Patient Position: Sitting; Cuff Location : Left Arm; Cuff Size: Standard 05-09-2012 09:08-0500 Body height 172.72 cm Alicia Wisdom GUNSTOCK REPAIRER [facility] [employer] 05-09-2012 09:08-0500 Body mass index (BMI) [Ratio] 28.59 kg/m2 Alicia Wisdom [facility] 05-09-2012 09:08-0500 Body surface area Derived from formula 1.99 m2 Alicia Wisdom [facility] [employer]. 05-09-2012 09:08-0500 Body weight 85.28 kg Alicia Wisdom GUNSTOCK REPAIRER [facility], [facility] [employer], [employer]. 05-09-2012 09:08-0500 Diastolic blood pressure 70 mm[Hg] Alicia Wisdom [facility] [employer], [employer]. Comment on above: Patient Position: Sitting; Cuff Location : Left Arm; Cuff Size: Large 05-09-2012 09:08-0500 Heart rate 57 /min Alicia Wisdom [facility], [facility] [employer], [employer]. Comment on above: Pattern: Regular 05-09-2012 09:08-0500 Systolic blood pressure 125 mm[Hg] Alicia Wisdom [facility] [employer], [employer]. Comment on above: Patient Position: Sitting; Cuff Location : Left Arm; Cuff Size: Large 03-19-2012 09:20-0400 Body height 172.72 cm [facility] [employer], [employer]. 03-19-2012 09:20-0400 Body mass index (BMI) [Ratio] 29.36 kg/m2 Joan Marques LPN [facility], [facility] [employer] 03-19-2012 09:20-0400 Body surface area Derived from formula 2.01 m2 Joan Marques [facility] [employer] 03-19-2012 09:20-0400 Body weight 87.6 kg [facility]aclarisse [facility] [employer] 03-19-2012 09:20-0400 Diastolic blood pressure 74 mm[Hg] Joan Jerald [facility] [employer] Comment on above: Patient Position: Sitting; Cuff Location : Left Arm; Cuff Size: Standard 03-19-2012 09:20-0400 Heart rate 52 /min Joan Jerald [facility] [employer] Comment on above: Pattern: Regular 03-19-2012 09:20-0400 Systolic blood pressure 138 mm[Hg] Joan Bonillaclay [facility] [employer] Comment on above: Patient Position: Sitting; Cuff Location : Left Arm; Cuff Size: Standard 07-15-2011 09:55-0500 Body weight 86.18 kg Mercedes Guajardo [facility] [employer] [facility] [employer] 07-15-2011 09:55-0500 Diastolic blood pressure 63 mm[Hg] Mercedes Guajardo GUNSTOCK REPAIRER [employer] Comment on above: Patient Position: Sitting; Cuff Location : Left Arm; Cuff Size: Standard 07-15-2011 09:55-0500 Heart rate 52 /min Mercedes Guajardo GUNSTOCK REPAIRER [facility] [employer] Comment on above: Pattern: Regular 07-15-2011 09:55-0500 Systolic blood pressure 138 mm[Hg] Mercedes Guajardo LPN [employer]. Comment on above: Patient Position: Sitting; Cuff Location : Left Arm; Cuff Size: Standard 01-12-2011 10:50-0400 Body temperature 96.8 [degF] Alic[facility]dom [facility] [employer] Comment on above: Method: Tympanic 01-12-2011 10:50-0400 Body weight 80.74 kg Alicia Wisdom [facility], [facility].; [facility], [employer]. 01-12-2011 10:50-0400 Diastolic blood pressure 66 mm[Hg] Alicia Wisdom GUNSTOCK REPAIRER [facility] [employer] [facility] Comment on above: Patient Position: Sitting; Cuff Location : Left Arm; Cuff Size: Large 01-12-2011 10:50-0400 Heart rate 68 /min Alicia Wisdom [facility] [employer]. Comment on above: Pattern: Regular 01-12-2011 10:50-0400 Systolic blood pressure 102 mm[Hg] Alicia Wisdom [facility] [employer]. Comment on above: Patient Position: Sitting; Cuff Location : Left Arm; Cuff Size: Large 11-08-2010 14:40-0400 Body height 172.72 cm Alicia Wisdom [facility], [facility].; [facility] 11-08-2010 14:40-0400 Body mass index (BMI) [Ratio] 28.74 kg/m2 Alicia Wisdom [facility], [facility].; [facility] 11-08-2010 14:40-0400 Body surface area Derived from formula 2 m2 Peg Stuckey [facility], [facility].; [facility] [employer] [facility] 11-08-2010 14:40-0400 Body weight 85.73 kg Alicia Wisdom [facility] 06-03-2010 09:42-0500 Body temperature 97.2 [degF] Luke Nasim PA-C Work Phone: [facility], [facility].; [employer]. Comment on above: Method: Tympanic 06-03-2010 09:42-0500 Body weight 84.91 kg Luke Nasim PA-C Work Phone: [facility], [facility].; [employer], [employer]. 06-03-2010 09:42-0500 Diastolic blood pressure 70 mm[Hg] Luke Nasim PA-C Work Phone: [employer] Comment on above: Patient Position: Sitting; Cuff Location : Left Arm; Cuff Size: Standard 06-03-2010 09:42-0500 Heart rate 60 /min Nehaldodie Nasim PA-C Work Phone: [employer]. Comment on above: Pattern: Regular 06-03-2010 09:42-0500 Systolic blood pressure 149 mm[Hg] Nehaldodie Nasim PA-C Work Phone: [employer]. Comment on above: Patient Position: Sitting; Cuff Location : Left Arm; Cuff Size: Standard 04-22-2010 14:59-0400 Body temperature 96 [degF] Neilee L Vess GUNSTOCK REPAIRER [employer], [employer]. 04-22-2010 14:59-0400 Body weight 86.18 kg Neilee L Vess GUNSTOCK REPAIRER [employer]. 04-22-2010 14:59-0400 Diastolic blood pressure 67 mm[Hg] Neilee L Vess GUNSTOCK REPAIRER [employer]. Comment on above: Patient Position: Sitting; Cuff Location : Left Arm; Cuff Size: Standard 04-22-2010 14:59-0400 Heart rate 50 /min Neilee L Vess GUNSTOCK REPAIRER [employer]. Comment on above: Pattern: Regular 04-22-2010 14:59-0400 Systolic blood pressure 144 mm[Hg] Neilee L Vess GUNSTOCK REPAIRER [employer]. Comment on above: Patient Position: Sitting; Cuff Location : Left Arm; Cuff Size: Standard Encounters Encounter Date Encounter Type Care Provider Facility Start: 03-05-2025 End: 03-05-2025 ambulatory [facility] Start: 03-03-2025 End: 03-03-2025 ambulatory [facility] Start: 02-12-2025 End: 02-13-2025 Office outpatient new 45 minutes Luke Nasim PA-C Work Phone: [employer]. Start: 02-12-2025 Review Lucas Ferrarol er PA-C Work Phone: [employer]. Start: 02-11-2025 End: 02-11-2025 Historical Summary Luke Nasim PA-C Work Phone: [employer]. Start: 03-29-2021 End: 03-29-2021 Office outpatient visit 15 minutes Luke Nasim PA-C Work Phone: [employer]. Start: 02-25-2021 End: 02-25-2021 Medication Luke Nasim PA-C Work Phone: [employer]. Start: 02-10-2021 End: 02-10-2021 Orders Luke Nasim PA-C Work Phone: [employer]. Start: 02-08-2021 End: 02-08-2021 Office outpatient visit 15 minutes Luke Nasim PA-C Work Phone: [employer]. Start: 01-12-2021 End: 01-12-2021 Patient encounter procedure Luke Nasim PA-C Work Phone: [employer]; [employer]. Start: 01-12-2021 End: 01-12-2021 Periodic preventive med est patient 65yrs& older Luke Nasim PA-C Work Phone: [employer]. Start: 01-08-2021 End: 01-08-2021 Orders Luke Nasim PA-C Work Phone: [employer]. Start: 12-01-2020 End: 12-01-2020 Office outpatient visit 25 minutes Luke Nasim PA-C Work Phone: [employer]. Start: 12-01-2020 End: 12-01-2020 Preprocedural examination done Luke Nasim PA-C Work Phone: [employer] [employer] Start: 03-24-2020 End: 03-24-2020 Nursing evaluation of patient and report Luke Nasim PA-C Work Phone: [employer] Start: 02-21-2020 End: 02-21-2020 Office outpatient visit 25 minutes Luke Nasim PA-C Work Phone: [employer] Start: 11-26-2019 End: 11-26-2019 Patient encounter procedure Minesh Jackson MD Work Phone: [employer]; [employer]. Start: 11-26-2019 End: 11-26-2019 Periodic preventive med est patient 65yrs& older Luke Nasim PA-C Work Phone: [employer] Start: 09-10-2019 End: 09-10-2019 Orders Luke Nasim PA-C Work Phone: [employer] Start: 09-06-2019 End: 09-06-2019 Historical Summary Luke Nasim PA-C Work Phone: [employer] Start: 07-01-2019 End: 07-01-2019 Office outpatient visit 15 minutes Luke Nasim PA-C Work Phone: [employer] Start: 06-13-2019 End: 06-13-2019 Office outpatient visit 15 minutes Luke Nasim PA-C Work Phone: [employer] Start: 06-11-2019 End: 06-11-2019 Medication Luke Nasim PA-C Work Phone: [employer] Start: 06-07-2019 End: 06-08-2019 Office outpatient visit 15 minutes Luke Nasim PA-C Work Phone: [employer] Start: 05-28-2019 End: 05-28-2019 Office outpatient visit 15 minutes Luke Nasim PA-C Work Phone: [employer]. Start: 05-24-2019 End: 05-24-2019 Telephone follow-up Luke Nasim PA-C Work Phone: [employer]. Start: 05-14-2019 End: 05-14-2019 Telephone follow-up Luke Nasim PA-C Work Phone: [employer]. Start: 05-10-2019 End: 05-10-2019 Office outpatient visit 15 minutes Luke Nasim PA-C Work Phone: [employer]. Start: 04-29-2019 End: 04-29-2019 Office outpatient visit 15 minutes Luke Nasim PA-C Work Phone: [employer]. Start: 04-24-2019 End: 04-24-2019 Medication Luke Nasim PA-C Work Phone: [employer]. Start: 04-12-2019 End: 04-12-2019 Office outpatient visit 25 minutes Luke Nasim PA-C Work Phone: [employer]. Start: 03-11-2019 End: 03-11-2019 Office outpatient visit 15 minutes Luke Nasim PA-C Work Phone: [employer]. Start: 02-11-2019 End: 02-11-2019 Office outpatient visit 15 minutes Luke Naism PA-C Work Phone: [employer]. Start: 12-25-2018 End: 12-25-2018 Office outpatient visit 15 minutes Luke Nasim PA-C Work Phone: [employer]. Start: 11-05-2018 End: 11-05-2018 Office outpatient visit 15 minutes Luke Nasim PA-C Work Phone: [employer] Start: 10-10-2018 End: 10-10-2018 Office outpatient visit 25 minutes Luke Nasim PA-C Work Phone: [employer]. Start: 09-28-2018 End: 09-28-2018 Office outpatient visit 15 minutes Luke Nasim PA-C Work Phone: [employer]. Start: 07-23-2018 End: 07-23-2018 Office outpatient visit 15 minutes Luke Nasim PA-C Work Phone: [employer]. Start: 04-30-2018 End: 04-30-2018 Office outpatient visit 15 minutes Luke Nasim PA-C Work Phone: [employer]. Start: 04-02-2018 End: 04-02-2018 Office outpatient visit 15 minutes Luke Nasim PA-C Work Phone: [employer]. Start: 03-23-2018 End: 03-23-2018 Office outpatient visit 15 minutes Luke Nasim PA-C Work Phone: [employer]. Start: 12-06-2017 End: 12-06-2017 Patient encounter procedure Luke Nasim PA-C Work Phone: [employer].; [employer]. Start: 12-06-2017 End: 12-06-2017 Periodic preventive med est patient 65yrs& older Luke Nasim PA-C Work Phone: [employer]. Start: 08-14-2017 End: 08-14-2017 Office outpatient visit 15 minutes Luke Nasim PA-C Work Phone: [employer]. Start: 07-28-2017 End: 07-28-2017 Office outpatient visit 15 minutes Luke Nasim PA-C Work Phone: [employer] Start: 05-12-2017 End: 05-12-2017 Office outpatient visit 15 minutes Luke Ansim PA-C Work Phone: [employer] Start: 10-04-2016 End: 10-04-2016 Office outpatient visit 15 minutes Luke Nasim PA-C Work Phone: [employer]. Start: 2016 End: 2016 Office outpatient visit 15 minutes Luke Nasim PA-C Work Phone: [employer]. Start: 09-02-2016 End: 09-02-2016 Office outpatient visit 15 minutes Luke Nasim PA-C Work Phone: [employer] Start: 05-02-2016 End: 05-02-2016 Nursing evaluation of patient and report Luke Nasim PA-C Work Phone: [employer] Start: 03-07-2016 End: 03-07-2016 Office outpatient visit 15 minutes Luke Nasim PA-C Work Phone: [employer] Start: 01-18-2016 End: 01-18-2016 Patient encounter procedure Luke Nasim PA-C Work Phone: [employer]. Start: 09-01-2015 End: 09-01-2015 Office outpatient visit 15 minutes Luke Nasim PA-C Work Phone: [employer] Start: 06-03-2015 End: 06-03-2015 Office outpatient visit 15 minutes Luke Nasim PA-C Work Phone: [employer] Start: 05-13-2015 End: 05-13-2015 Medication Luke Nasim PA-C Work Phone: [employer]. Start: 05-11-2015 End: 05-11-2015 Office outpatient visit 15 minutes Luke Nasim PA-C Work Phone: [employer] Start: 02-10-2015 End: 02-10-2015 Orders Luke Nasim PA-C [facility]: [facility] Start: 02-10-2015 End: 02-10-2015 Medication Luke Nasim PA-C Work Phone: [employer]. Start: 02-04-2015 End: 02-04-2015 Orders Luke Nasim PA-C Work Phone: [facility] [employer]. Start: 02-04-2015 End: 02-04-2015 Office outpatient visit 15 minutes Luke Nasim PA-C Work Phone: [employer]. Start: 12-23-2014 End: 12-23-2014 Office outpatient visit 15 minutes Luke Nasim PA-C Work Phone: [facility] Start: 11-28-2014 End: 11-28-2014 Office outpatient visit 15 minutes Luke Nasim PA-C Work Phone: [facility] Start: 11-26-2014 End: 11-26-2014 Nursing evaluation of patient and report Luke Nasim PA-C Work Phone: [employer]. Start: 11-25-2014 End: 11-25-2014 Office outpatient visit 15 minutes Luke Nasim PA-C Work Phone: [employer]. Start: 10-17-2014 End: 10-17-2014 Office outpatient visit 15 minutes Luke Nasim PA-C Work Phone: [facility] Start: 10-07-2014 End: 10-07-2014 Patient encounter procedure Luke Nasim PA-C Work Phone: [employer]. Start: 08-25-2014 End: 08-25-2014 Patient encounter procedure Luke Nasim PA-C Work Phone: [facility] Start: 06-24-2014 End: 06-24-2014 Orders Luke Nasim PA-C Work Phone: [employer]. Start: 05-26-2014 End: 05-26-2014 Medication Luke Nasim PA-C Work Phone: [employer]. Start: 05-20-2014 End: 05-20-2014 Orders Luke Nasim PA-C Work Phone: [employer] Start: 05-13-2014 End: 05-13-2014 Office outpatient visit 15 minutes Luke Nasim PA-C Work Phone: [employer]. Start: 04-28-2014 End: 04-28-2014 Medication Luke Nasim PA-C Work Phone: [employer]. Start: 04-11-2014 End: 04-11-2014 Medication Luke Nasim PA-C Work Phone: [employer]. Start: 03-10-2014 End: 03-10-2014 Office outpatient visit 15 minutes Luke Nasim PA-C Work Phone: [employer]. Start: 03-03-2014 End: 03-03-2014 Office outpatient visit 15 minutes Luke Nasim PA-C Work Phone: [employer]. Start: 11-01-2013 End: 11-01-2013 Patient encounter procedure Luke Nasim PA-C Work Phone: [employer]. Start: 10-28-2013 End: 10-28-2013 Medication Luke Nasim PA-C Work Phone: [employer]. Start: 09-18-2013 End: 09-18-2013 Patient encounter procedure Luke Nasim PA-C Work Phone: [employer]. Start: 08-05-2013 End: 08-05-2013 Medication Luke Nasim PA-C Work Phone: [employer]. Start: 07-30-2013 End: 07-30-2013 Medication Luke Nasim PA-C Work Phone: [employer]. Start: 07-11-2013 End: 07-11-2013 Patient encounter procedure Luke Nasim PA-C Work Phone: [employer]. Start: 05-29-2013 End: 05-29-2013 Patient encounter procedure Luke Nasim PA-C Work Phone: [employer]. Start: 04-23-2013 End: 04-23-2013 Nursing evaluation of patient and report Luke Nasim PA-C Work Phone: [employer]. Start: 04-15-2013 End: 04-15-2013 Laboratory examination ordered as part of a routine general medical examination Luke Nasim PA-C Work Phone: [employer] Start: 04-15-2013 End: 04-15-2013 Orders Luke Nasim PA-C Work Phone: [employer]. Start: 09-17-2012 End: 09-17-2012 Patient encounter procedure Luke Nasim PA-C Work Phone: [employer]. Start: 2012 End: 2012 Patient encounter procedure Luke Nasim PA-C Work Phone: [employer]. Start: 05-21-2012 End: 05-21-2012 Laboratory examination ordered as part of a routine general medical examination Luke Nasim PA-C Work Phone: [employer] [employer] Start: 05-21-2012 End: 05-21-2012 Orders Luke Nasim PA-C Work Phone: [employer]. Start: 05-09-2012 End: 05-09-2012 Patient encounter procedure Luke Nasim PA-C Work Phone: [employer] Start: 03-19-2012 End: 03-19-2012 Patient encounter procedure Luke Nasim PA-C Work Phone: [facility]. Start: 09-19-2011 End: 09-19-2011 Medication Luke Nasim PA-C Work Phone: [employer]. Start: 07-15-2011 End: 07-15-2011 Patient encounter procedure Luke Nasim PA-C Work Phone: [employer]. Start: 06-22-2011 End: 06-22-2011 Medication Luke Nasim PA-C Work Phone: [facility]. Start: 05-03-2011 End: 05-03-2011 Medication Luke Nasim PA-C Work Phone: [facility]. Start: 02-23-2011 End: 02-23-2011 Medication Luke Nasim PA-C Work Phone: [employer]. Start: 01-12-2011 End: 01-12-2011 Patient encounter procedure Luke Nasim PA-C Work Phone: [employer]. Start: 11-26-2010 End: 11-26-2010 Patient encounter procedure Luke Nasim PA-C Work Phone: [employer]. Start: 11-08-2010 End: 11-09-2010 Patient encounter procedure Luke Nasim PA-C Work Phone: [employer] Start: 11-03-2010 End: 11-03-2010 Laboratory examination ordered as part of a routine general medical examination Luke Nasim PA-C Work Phone: [facility].; [employer] Start: 11-03-2010 End: 11-03-2010 Orders Luke Nasim PA-C Work Phone: [employer]. Start: 09-24-2010 End: 09-24-2010 Medication Luke Nasim PA-C Work Phone: [facility]. Start: 07-27-2010 End: 07-27-2010 Medication Luke Nasim PA-C Work Phone: [facility] Start: 06-03-2010 End: 06-03-2010 Patient encounter procedure Luke Nasim PA-C Work Phone: [facility] Start: 06-01-2010 End: 06-01-2010 Medication Luke Nasim PA-C Work Phone: [facility] Start: 05-05-2010 End: 05-05-2010 Medication Luke Nasim PA-C Work Phone: [facility] Start: 04-22-2010 End: 04-22-2010 Patient encounter procedure Luke Nasim PA-C Work Phone: [facility] Admission to [facility].; [facility] Ad[facility] to [facility] Zaid Beasley [facility].; [facility] Laboratory examinati on ordered as part of a routine general medical examination Kiki Bowman [facility].; [facility] Patient encounter procedure [facility].; [facility] Patient encounter procedure Kiki Gracie [facility].; [facility] Patient encounter procedure Zaid Beasley [facility].; [facility] Procedures Date Procedure Procedure Detail Performing Clinician Start: 03-29-2021 End: 03-29-2021 Flu immunize order/admin Minesh Ames Work Phone: Start: 01-12-2021 End: 01-12-2021 Depression screening Minesh Jackson MD Work Phone: Start: 01-12-2021 End: 01-12-2021 Falls risk assessment documented Minesh Jackson MD Work Phone: Start: 01-12-2021 End: 01-12-2021 PPPS, subseq visit Minesh Jackson MD Work Phone: Start: 01-12-2021 End: 01-12-2021 Pt falls assess docd w/o fall/injury past year Minesh Jackson MD Work Phone: Start: 01-12-2021 End: 01-12-2021 Scr dep neg, no plan reqd Minesh Jackson MD Work Phone: Start: 01-08-2021 End: 01-08-2021 Lab findings surveillance Alicia jaar [employer] Comment on above: 114 Start: 01-08-2021 End: 01-08-2021 Lipid panel Alicia Wisdom LP N Start: 11-26-2019 End: 11-26-2019 Depression screening Minesh Jackson MD Work Phone: Start: 11-26-2019 End: 11-26-2019 Falls risk assessment documented Minesh Jackson MD Work Phone: Start: 11-26-2019 End: 11-26-2019 PPPS, subseq visit Minesh Jackson MD Work Phone: Start: 11-26-2019 End: 11-26-2019 Pt falls assess docd w/o fall/injury past year Minesh Jackson MD Work Phone: Start: 11-26-2019 End: 11-26-2019 Scr dep neg, no plan reqd Minesh Jackson MD Work Phone: Start: 04-12-2019 End: 04-12-2019 Flu immunize order/admin Minesh Ames Work Phone: Start: 04-12-2019 End: 04-12-2019 Thyrotropin [Units/volume] in Serum or Plasma Alicia Wisdom [employer] Start: 01-16-2019 End: 01-16-2019 Most Recent Cardio Report Lucas toussaint PA-C Work Phone: Start: 12-15-2017 End: 12-15-2017 Fecal Occult Screening Alicia Wisdom [employer] Comment on above: Normal. Start: 12-06-2017 End: 12-06-2017 PPPS, subseq visit Minseh Jackson MD Work Phone: Start: 12-06-2017 End: 12-06-2017 Pt falls assess docd 2/> falls/fall w/injury/yr Minesh Jackson MD Work Phone: Start: 12-06-2017 End: 12-06-2017 Scr dep neg, no plan reqd Minesh Jackson MD Work Phone: Start: 12-06-2017 End: 12-06-2017 Falls risk assessment documented Minesh Jackson MD Work Phone: Start: 12-06-2017 End: 12-06-2017 Depression screen annual Minesh Ames Work Phone: Start: 07-28-2017 End: 07-28-2017 Body mass index documented Minesh Jackson MD Work Phone: Start: 07-28-2017 End: 07-28-2017 Most recent diastolic blood pressure < 80 mm hg Minesh Jackson MD Work Phone: Start: 07-28-2017 End: 07-28-2017 Most recent systolic blood press 130-139mm hg Minesh Jackson MD Work Phone: Start: 05-12-2017 End: 05-12-2017 Body mass index documented Minesh Jackson MD Work Phone: Start: 05-11-2015 End: 05-11-2015 Dup-scan xtr veins unilateral/limited study Minesh Jackson MD Work Phone: Start: 02-04-2015 End: 02-10-2015 Ct maxillofacial w/o contrast material Minesh Jackson MD Work Phone: Start: 12-23-2014 End: 12-23-2014 Dexamethasone sodium phos Minesh Jackson MD Work Phone: Start: 10-07-2014 End: 10-07-2014 Triamcinolone acet inj NOS Elizabeth mae PA-C Work Phone: Start: 05-20-2014 End: 05-26-2014 Hepatobiliary syst imaging including gallbladder Minesh Jackson MD Work Phone: Start: 05-13-2014 End: 05-26-2014 Us abdominal real time w/image limited Minesh Jackson MD Work Phone: Start: 2012 End: 2012 Removal impacted cerumen instrumentation unilat Minesh Jackson MD Work Phone: Start: 11-08-2010 End: 11-08-2010 Triamcinolone acet inj NOS Chase Saenz MD Work Phone: Coronary artery bypa ss grafts x 4 Elizabeth Aviles RN right CEA Elizabeth tran RN Screening for malign ant neoplasm of large intestine Alicia Wisdom [employer] Comment on above: colonoscopy about 7 years ago Plan of Treatment Date Care Activity Detail Author Start: 08-14-2025 Patient encounter procedure Medical; EXTENDED RTN - 6 mo rtn [employer]. Start: 14-Aug-2025 10:00-05:00 SEN Rouse Appointment Request [employer]. Start: 02-12-2025 Patient encounter procedure Medical; EXTENDED RTN - transfer back to [place] [employer]. Start: 12-Feb-2025 10:00-04:00 SEN Rouse Appointment Request [employer]. Start: 06-07-2019 Patient Education Sinusitis *: sinus infection Indication: Sinusitis, acute Start: 07-Jun-2019 Instruction Type: Patient Education [employer] dexAMETHasone so d phos (bulk) 100 % powder Ordered: 07-Oct-2014 SEN Kyle [employer] [employer] Work Phone: dexAMETHasone so d phos (bulk) 100 % powder Ordered: 23-Dec-2014 MD Minesh Jackson [employer] Immunizations Immunization Date Immunization Notes Care Provider [place] 02-09-2022 COVID-Moderna (100 MCG/0.5 ML) Luke Nasim [facility]-C [facility] 05-14-2021 COVID-Moderna (100 MCG/0.5 ML) Luke Nasim PA-C Work Phone: [facility].; [facility] 03-29-2021 influenza virus vacc ine, unspecified formulation Luke Nasim PA-C Work Phone: [facility]; [facility] 03-29-2021 influenza, injectabl e, quadrivalent, contains preservative Luke Nasim PA-C Work Phone: [facility] [employer]; [facility] Comment on above: Site: Left DeltoidVI S Given: * Influenza - Inactivated (01/31/19) 09-03-2020 COVID-Moderna (100 MCG/0.5 ML) Luke Nasim PA-C Work Phone: [facility]; [facility] 08-06-2020 COVID-Moderna (100 MCG/0.5 ML) Luke Nasim PA-C Work Phone: [facility] [facility]; [facility] 03-24-2020 influenza, injectabl e, quadrivalent, contains preservative Luke Nasim PA-C Work Phone: [facility]; [facility]. Comment on above: Site: Right DeltoidV IS Given: * Influenza - Inactivated (01/23/15) 11-26-2019 pneumococcal polysaccharide vaccine, 23 valent Luke Nasim PA-C Work Phone: [facility]; [facility] Comment on above: Site: Left DeltoidVI S Given: * Pneumococcal Polysaccharide (PPSV23) (10/10/14) 04-12-2019 influenza virus vacc ine, unspecified formulation Luke Nasim PA-C Work Phone: [facility].; [facility] 04-12-2019 influenza, injectabl e, quadrivalent, contains preservative Luke Nasim PA-C Work Phone: [employer].; [employer] Comment on above: Site: Right DeltoidV IS Given: * Influenza - Inactivated (01/23/15) 03-23-2018 influenza, injectabl e, quadrivalent, contains preservative Luke Nasim PA-C Work Phone: [facility]; [employer] Comment on above: Site: Right DeltoidV IS Given: * Influenza - Inactivated (01/23/15) 12-06-2017 diphtheria, tetanus toxoids and acellular pertussis vaccine, unspecified formulation Luke Nasim PA-C Work Phone: [facility]; [facility]. 05-02-2016 unknown vaccine or immune globulin Luke Nasim PA-C Work Phone: [facility]; [facility]. 05-02-2016 influenza, injectabl e, quadrivalent, contains preservative Luke Nasim PA-C Work Phone: [facility]; [employer]. Comment on above: Site: Deltoid (Left) VIS Given: * Influenza - Inactivated (01/23/15) 09-11-2015 zoster vaccine, live Luke Ho mauricetetler PA-C Work Phone: [facility]; [facility]. Comment on above: Site: Posterior Uppe r Arm (Right)sarita 05-11-2015 pneumococcal conjuga te vaccine, 13 valent Luke Nasim PA-C Work Phone: [facility]; [employer] Comment on above: Site: Deltoid (Right )VIS Given: * Pneumococcal Conjugate (PCV13) (08/15/12) 05-11-2015 influenza, seasonal, injectable Luke Nasim PA-C Work Phone: [facility]; [facility] Comment on above: Site: Deltoid (Left) VIS Given: * Inactivated Influenza (01/23/2015) 04-23-2013 influenza, seasonal, injectable Luke Nasim PA-C Work Phone: [facility]; [employer] Comment on above: Site: Deltoid (Left) VIS Given: * Inactivated Influenza Vaccine (01/27/09) * Inactivated Influenza Vaccine (01/11/11) * Influenza vaccine [id number], inactivated (12/19/2011) * VIS Given (Unspecified) 04-23-2013 ADMINISTRATION OF INFLUENZA VIRUS VACCINE (G0008) LuGeckoGo Nasim PA-C Work Phone: [facility]; [employer]. 03-19-2012 influenza, seasonal, injectable Luke Nasim PA-C Work Phone: [facility]; [employer]. Comment on above: Site: Deltoid (Left) VIS Given: * Inactivated Influenza Vaccine (01/27/09) * Inactivated Influenza Vaccine (01/11/11) * Influenza vaccine , inactivated (12/19/2011) * VIS Given (Unspecified) Payers Date Payer Category Payer Unknown [id number] 1940 Unknown [id number] Unknown [employer] PREFERRED-PP O Medicare [id number] Social History Date Type Detail Facility Non Smoker/No Tobacco Use Non Smoker/No T obacco Use [facility]; [facility] Tobacco Use: Tobacco Use: ; F ormer smoker. [facility] Work Phone: Ex-smoker [facility] [employer] Work Phone: Summary Purpose Family History No Family History Records FoundNo Family History Records FoundNo Family History Records FoundNo Family History Records Found Advance Directives No Advanced Directives Records FoundNo Advanced Directives Records FoundNo Advanced Directives Records FoundNo Advanced Directives Records Found Additional Source Comments (unrecognized sect ion and content) No Status Records FoundNo Status Records FoundNo Status Records FoundNo Status Records Found INFORMATION SOURCE (unrecogn ized section and content) DATE CREATED AUTHOR 05/07/2019 [facility] DATE CREATED AUTHOR AUTHOR'S ORGANIZ ATION 07/01/2019 [facility] DATE CREATED AUTHOR AUTHOR'S ORGANIZ ATION 04/18/2021 [facility] DATE CREATED AUTHOR AUTHOR'S ORGANIZ ATION 03/06/2025 [facility] FOR RECORDS PERTAINING TO PATIENTS WHO ARE OR HAVE BEEN ENROLLED IN A CHEMICAL DEPENDENCY/SUBSTANCEABUSE PROGRAM, SOME INFORMATION MAY BE OMITTED. This clinical summary was aggregated from multiple sources. Caution should be exercised in using it in the provision of clinical care. This summary normalizes information from multiple sources, and as a consequence, information in this document may materially change the coding, format and clinical context of patient data. In addition, data may be omitted in some cases. CLINICAL DECISIONS SHOULD BE BASED ON THE PRIMARY CLINICAL RECORDS. [employer] [facility]. provides no warranty or guarantee of the accuracy or completeness of information in this document.
[2025-04-03 17:14] LABS: PSA,Total- Diagnostic 0.11 ng/mL (0.00-4.00)
== END | disposition home or self-care (01) ==
LOC: LAB 15:34
PROVIDERS: PCP Family Medicine; Referring Provider Urology; Visit Provider Urology
DX: C61 Malignant neoplasm of prostate (principal)
CPT/HCPCS: 36415; 84153

== ENCOUNTER 2025-05-08 10:30 | Outpatient (RCR) | payer MEDICARE, SELFPAY ==
[2025-05-01 10:08] VITALS: BP 151/71; PULSE 50; RESP 16; TEMP 36.3; BMI 29.5
--- NOTE | 2025-05-01 12:38 | PCM.WC.HP ---
History of Present Illness Date of Service: 05/01/25 Chief Complaint: Right buttock ulcer History of Wound: Mr. Romano is an 84-year-old who presents here due to right buttock ulcer. For the last 7 to 8 years, he states that he has had recurrent opening in his right buttock area and has sought wound care locally and in [place] where he previously lived. Due to chronic back issues, sleeps in his recliner/chair and he states that he is consistently slightly rotated with increased pressure to the right area. He has been seeing his dry food products mixer most recently who referred him to the wound center due to nonhealing. He denies any history of diabetes mellitus and states that his appetite/dietary intake is good. In the past, had used the hospital bed but did not care for it. Feels well otherwise. [facility] Medical History (Updated 05/01/25 @ 12:[address] Rex Felipe MD) Debility Chronic back pain Decubitus ulcer of right buttock, stage 3 Home Medications ?Medication ?Instructions ?Recorded ?Last Taken ?Type allopurinol 100 mg tablet 100 mg PO QHS 11/09/17 Unknown History aspirin 81 mg tablet,delayed 81 mg PO DAILY@0800 11/09/17 11/04/17 History release bicalutamide 50 mg tablet 50 mg PO DAILY 11/09/17 11/15/17 07:15 History 50 MG butalbital 50 mg-acetaminophen 300 1 ea PO Q6H PRN migraines 11/09/17 Unknown History mg tablet enalapril maleate 5 mg tablet 10 mg PO DAILY 11/09/17 11/15/17 07:15 History 5 MG fluticasone propionate 50 1 spray NS DAILY 11/09/17 Unknown History mcg/actuation nasal spray,suspension (Flonase Allergy Relief) furosemide 20 mg tablet 20 mg PO DAILY 11/09/17 Unknown History metoprolol tartrate 25 mg tablet 25 mg PO BID 11/09/17 11/15/17 07:15 History 25 MG multivitamin (Multiple Vitamins 1 ea PO DAILY 11/09/17 Unknown History tablet) omega-3s 600 lh-laz-vni-other 1 ea PO BID 11/09/17 Unknown History [id number] oil 1,200 mg capsule omeprazole 20 mg capsule,delayed 40 mg PO DAILY 11/09/17 11/15/17 07:15 History release 20 MG rosuvastatin 20 mg tablet (Crestor) 20 mg PO QHS 11/09/17 Unknown History tamsulosin 0.4 mg capsule (Flomax) 0.4 mg PO QHS 11/09/17 Unknown History lamotrigine 100 mg tablet 100 mg PO BID 05/01/25 Unknown History nitroglycerin 0.4 mg sublingual 0.4 mg sublingual PRN 05/01/25 Unknown History tablet solifenacin 10 mg tablet 10 mg PO QHS 05/01/25 Unknown History Allergy/AdvReac Type Severity Reaction Status Date / Time No Known Allergies Allergy Verified 11/09/17 09:31 Social History Smoking Status: Former smoker ROS Constitutional Constitutional: Denies fatigue, fever(s), frequent falls, headache(s), lethargy or malaise Eyes Eyes: Denies change in eye color, change in vision, discharge from eye(s), discongugate gaze, double vision or dry eyes ENT HEENT: Denies dysphagia, epistaxis, facial pain, foreign body in nose, halitosis or headache(s) Cardiovascular Cardiovascular: Denies abdominal bloating, abdominal edema, cold extremities, cyanosis, diaphoresis or dyspnea at rest Respiratory/Chest Respiratory/Chest: Denies dry cough, dusky skin, dyspnea, excessive phlegm production, hemoptysis, hoarseness or inability to speak Gastrointestinal Gastrointestinal: Denies chewing difficulty, coffee ground emesis, dry heaves, dyspepsia or excessive flatus Genitourinary Genitourinary: Denies abdominal discomfort, anuria, contractions, difficulty urinating or flank pain Musculoskeletal Musculoskeletal: Denies atrophy, joint swelling, muscle weakness, tingling or tremors Integumentary Integumentary: Reports lesions and skin ulcer; Denies erythema, furuncle or hirsutism Neurologic Neurologic: Denies abnormal hearing, abnormal movements, abnormal speech, behavior changes, frequent falls or memory loss Psychiatric Psychiatric: Denies anhedonia, anxiety, auditory hallucinations, behavioral changes, cognitive impairment, tactile hallucinations or visual hallucinations Endocrine Endocrinology: Denies cold intolerance, deepening of the voice, excessive sweating, heat intolerance or increase in ring/shoe/hat size Hematologic/Lymphatic Hematologic/Lymphatic: Denies easy bleeding or easy bruising Allergic/Immunologic Allergic/Immunologic: Reports eczemia; Denies itchy eyes, lip swelling, throat swelling, tongue swelling or hives Vital Signs Vital Signs Vital Signs: 05/01/25 10:08 Temperature 97.3 F L Temperature Source Temporal Pulse Rate 50 L Respiratory Rate 16 Blood Pressure 151/71 H Blood Pressure Mean 97 Blood Pressure Source Monitor Blood Pressure Position Semi-Fowlers Blood Pressure Location Left Arm Weight Weight: 200 lb Body Mass Index (BMI) 29.5 Physical Exam Const alert and oriented x3 General Appearance: cooperative and comfortable HEENT normocephalic and head/scalp atraumatic Eyes EOMs intact bilaterally Neck full ROM General: normal visual inspection Resp normal respiratory effort and normal air movement Effort and Inspection: able to speak in complete sentences Cardio regular rate, regular rhythm, S1 normal heart sound and S2 normal heart sound GI soft to palpation and non-tender Extremity no clubbing, cyanosis or edema Skin Rashes: rashes noted Wounds: wounds noted size Size: See Clinical Note, bed granulating well, margins well approximated, no odor and surrounding erythema Neuro oriented x3, CN's II-XII intact bilaterally, moves all extremities and no focal motor deficits Psych mental status grossly normal, thought process normal, cooperative and affect normal Debridement Note Debridement Note Wound debrided: Right Buttock Type of Debridement: Excisional debridement Anesthesia Used: 5% Lidocaine Gel Depth: Down to and including healthy tissue and in the subcutaneous layer Percentage of wound debrided: 100 Instrument Used: 3mm curette Tissue Removed: Slough and devitalized tissue Severity: Fat Layer Exposed Amount of bleeding with debridement: Mild Bleeding Controlled with: Pressure Patient tolerated procedure: Patient tolerated procedure well Post-Debridement Measurements and Additional Note: Post-Debridement Measurements/Treatment - Nurse 1 - General Ulcer Assessment Start: 05/01/25 10:08 Freq: Status: Active Protocol: ALIDA.LOWEXT Activity Type Activity Date Activity User E-sign Co-sign Detail Recorded Client Recorded Date Recorded By Document 05/01/25 10:08 JOSSE [id number] 05/01/25 10:24 JOSSE 05/01/25 10:08 - Today's Visit Information Type of service Initial Visit Arrival Mode Ambulatory Patient Identification Verified (Name & Yes ) Patient Requires Transmission-Based No Precautions Height and Weight Height 5 ft 9 in Weight 200 lb Weight in Pounds 200.0 lbs Body Mass Index (BMI) 29.5 BMI Classification Overweight Vital Signs Temperature (97.8 F-99.1 F) 97.3 F L Temperature Source Temporal Pulse Rate (60-100) 50 L Pulse Location Monitor Respiratory Rate (12-18) 16 Respiratory rate source Observation Blood Pressure (90/60-120/80) 151/71 H Blood Pressure Mean 97 Source Monitor Position Semi-Fowlers Blood Pressure Location Left Arm History Since Last Visit- (Skip if this is Patient's initial visit) Left Footwear Regular Shoe Right Footwear Regular Shoe Pain Scale: 0-10 Numeric Is Patient Pain Free? Yes Communication Assessment Primary Language Mauritanian Preferred language Mauritanian Invoicing Specialist Required No Able to Read Yes Able to Write Yes Communication Tools None Right Hearing Abillity Hard of Hearing ,Use of Hearing Aid Left Hearing Abillity Hard of Hearing ,Use of Hearing Aid Visual Assistive Devices Glasses Teaching Assessment Preferences Verbal,Written, Audio/Visual, Demonstration Barriers to Learning Unable to Comprehend Readiness To Learn Excellent Willingness to Engage in Self Management High Activies Readiness to Engage in Self Management High Activities Anxiety Level Calm Cooperation Cooperative Perception Coherent Interest in Health Problem Asks Questions Education Importance Acknowledges Need Does Patient Smoke tobacco or other No substances Smoking Status Former smoker Is Patient Diabetic No Functional Assessment Recent Decline in Ability to Perform Denies Any Declines Assistive Device With Patient No Culture/Hinduism/Bottle Machine Operator Cultural/Hinduism Needs that may affect No Treatment Plan Would you allow our hospital balance recesser to No meet you for the purpose of spiritual/ emotional support? Bottle Machine Operator to contact place of holiness No Teaching: Wound Center *Debridement -Person Taught Patient -Teaching Method Discussion, Demonstration -Response to teaching Return Demonstration, Verbalize Understanding [facility] Orientation/ Contacting Physician -Person Taught Patient -Teaching Method Discussion, Demonstration -Response to teaching Return Demonstration, Verbalize Understanding [facility] Nurse 1 - General Ulcer Measurement Start: 05/01/25 10:08 Freq: Status: Active Protocol: Activity Type Activity Date Activity User E-sign Co-sign Detail Recorded Client Recorded Date Recorded By Document 05/01/25 10:08 JOSSE [id number] 05/01/25 10:24 JOSSE 05/01/25 10:08 Wound Center Nurse 1 1-right buttocks -Combined with other wound No -Current Size (cm) - Length 1.0 -Current Size (cm) - Width 0.3 -Current Size (cm) - Depth 0.1 -Total Square Cm 0.30 -Photo Taken Yes -Epithelialization Medium 34-66% -Tunneling No -Undermining/Tunneling No -Circular Undermining No -Classification - Pressure Ulcer Stage 2 -Exudate Amt Medium -Exudate Type Serosanguineous -Wound Margin Flat & Intact -Granulation Amt Large (67-100%) -Granulation Quality Red -Slough/Fibrin Yes -Necrosis Amt Small (1-33%) -Necrotic Tissue Type Adherent Slough -Structure Exposed N/A -Texture (Libby-wound Skin Appearance) Assessed -Moisture (Libby-wound Skin Appearance) No Abnormality, Dry/Scaly -Color (Libby-wound Skin Appearance) Assessed -Temperature (Libby-wound Skin No Abnormality Appearance) (Pt Warm) -Tenderness on Palpation (Libby-wound No Skin Appearance) -Ulcer Cleansing Rinsed/ Irrigated with Saline -Foul Odor after Cleansing No -Anesthetic Used 4% Lidocaine Solution Lower Limb Edema Present NA WC - Nurse 2 - General Ulcer CM Notes Start: 05/01/25 10:08 Freq: Status: Active Protocol: Activity Type Activity Date Activity User E-sign Co-sign Detail Recorded Client Recorded Date Recorded By Document 05/01/25 10:52 [id number] 05/01/25 11:00 05/01/25 10:52 Wound Center Nurse 2 1-right buttocks -Time 10:53 -Correct Patient Yes -Correct Side, Site, Position Yes -Correct Procedure Yes -Procedure Performed Yes -Type of Procedure Debridement -Clinical Debridement Subcutaneous -Tissue Removed Subcutaneous -Post Debridement (cm) - Length 0.3 -Post Debridement (cm) - Width 1.4 -Post Debridement (cm) - Depth 0.1 -Total Square (Post) (cm) 0.42 -Area of Debridement (cm) - Length 0.3 -Area of Debridement (cm) - Width 1.4 -Total Square (Area) (cm) 0.42 -Tunneling No -Undermining/Tunneling No -Circular Undermining No -Wound/Ulcer Outcome Not Healed -Ulcer Cleansing Rinsed/ Irrigated with Saline -Foul Odor after Cleansing No -Bioengineered Tissue No -Bleeding Controlled with Pressure -Treatment Response Procedure Tolerated Well -Offloading No -Debridement - Subq, 1st 20sq cm Yes Pain Scale: 0-10 Numeric Is Patient Pain Free? Yes - Nurse 3 - General Ulcer D/C NN Start: 05/01/25 10:08 Freq: Status: Active Protocol: Activity Type Activity Date Activity User E-sign Co-sign Detail Recorded Client Recorded Date Recorded By Document 05/01/25 11:27 RB [id number] 05/01/25 11:28 RB 05/01/25 11:27 Wound Care Center Nurse 3 1-right buttocks -Ulcer Cleansing Rinsed/ Irrigated with Saline -Primary Dressing Applied Promogran, Silicone Border Foam 4x4 -Promogran 1 -Silicone Border Foam 4x4 1 Treatment Response Procedure Tolerated Well Pain Scale: 0-10 Numeric Is Patient Pain Free? Yes WC - Visit Discharge Discharge Condition Stable Ambulatory Status Ambulatory Transportation Private Auto Medication Reconcilliation completed & No provided to patient/care provider Clinical Summary of Care Provided Yes Charges/Coding Visit Charges Office Visits / Consults: [id number] OV L3 New 30min Procedures Integumentary [id number]: [id number] Vivian subq tissue 20 sq cm/< Assessment/Plan Assessment/Plan (1) Decubitus ulcer of right buttock, stage 3: CODE(S): L89.313 - Pressure ulcer of right buttock, stage 3 (2) Chronic back pain: CODE(S): M54.9 - Dorsalgia, unspecified; G89.29 - Other chronic pain (3) Debility: CODE(S): R53.81 - Other malaise PLAN: Plan Debridement done as documented above, procedure was well-tolerated. Recurrent buttock ulceration for 7 to 8 years. Sleeps largely in a recliner and is quite sedentary. Uses a Roho in his recliner. Follows up closely with dermatology and has sought wound care at other places prior to his presentation here. Lengthy discussion had with patient on repeated pressure and reopening. He is open to trying a hospital bed again, prescription sent. Pressure relieving mattress also recommended. For now, Promogran daily covered with foam dressing. May change more often if needed. Optimal protein intake and offloading discussed, he voiced understanding. His questions were answered and was advised to let us know if he had any further questions or concerns. Follow-up in a week or sooner if needed. This note was generated with [employer] software. It may contain incorrect words, spelling, and punctuation that were not noted in checking the note before signing.
--- NOTE | 2025-05-05 08:56 | WC ---
PHOTO-RIGHT BUTTOCKS 05/01/25
[2025-05-08 10:43] VITALS: BP 146/59; PULSE 47; RESP 16; TEMP 36.4; BMI 29.5
--- NOTE | 2025-05-08 12:17 | PN.PCM_ITS ---
History of Present Illness Date of Service: 05/08/25 Chief Complaint: Right buttock ulcer History of Wound: Mr. Romano is an 84-year-old who presents here due to right buttock ulcer. For the last 7 to 8 years, he states that he has had recurrent opening in his right buttock area and has sought wound care locally and in [place] where he previously lived. Due to chronic back issues, sleeps in his recliner/chair and he states that he is consistently slightly rotated with increased pressure to the right area. He has been seeing his psychological tests sales agent most recently who referred him to the wound center due to nonhealing. He denies any history of diabetes mellitus and states that his appetite/dietary intake is good. In the past, had used the hospital bed but did not care for it. Feels well otherwise. Progress of Wound: No acute concerns reported at this time. Has been doing dressing changes as recommended and significant improvement noted. Objective Data Objective Data Vital Signs: Vital Signs Temp Pulse Resp BP O2 Del Method 97.6 F L 47 L 16 146/59 H Room Air 05/08/25 10:43 05/08/25 10:43 05/08/25 10:43 05/08/25 10:43 05/08/25 10:43 Oxygen Delivery Method Room Air Weight: 200 lb Body Mass Index (BMI) 29.5 Charges/Coding Procedures Integumentary 111xxx-113xx: 78771 Vivian subq tissue 20 sq cm/< (Selective debridement done today, please see clinical note) Physical Exam Const alert and oriented x3 General Appearance: cooperative and comfortable HEENT normocephalic and head/scalp atraumatic Eyes EOMs intact bilaterally Neck full ROM General: normal visual inspection Resp normal respiratory effort Effort and Inspection: able to speak in complete sentences Extremity no clubbing, cyanosis or edema Skin Wounds: wounds noted size Size: See Clinical Note, bed granulating well, margins well approximated, no odor and surrounding erythema Neuro oriented x3, CN's II-XII intact bilaterally, moves all extremities and no focal motor deficits Psych mental status grossly normal, thought process normal, cooperative and affect normal Debridement Note Debridement Note Wound debrided: Right buttock Type of Debridement: Selective debridement Anesthesia Used: 5% Lidocaine Gel Depth: Down to and including healthy tissue Percentage of wound debrided: 100 Instrument Used: 3mm curette Tissue Removed: Devitalized tissue Severity: Limited To Skin Breakdown Amount of bleeding with debridement: None Patient tolerated procedure: Patient tolerated procedure well Post-Debridement Measurements and Additional Note: Post-Debridement Measurements/Treatment - Nurse 1 - General Ulcer Assessment Start: 05/01/25 10:08 Freq: Status: Active Protocol: LACHELLE Activity Type Activity Date Activity User E-sign Co-sign Detail Recorded Client Recorded Date Recorded By Document 05/01/25 10:08 JF [id number] 05/01/25 10:24 JF Document 05/08/25 10:43 TS [id number] 05/08/25 10:45 TS 05/01/25 05/08/25 10:08 10:43 - Today's Visit Information Type of service Initial Visit Follow-up Visit (Physician/MANGLE TENDER ) Arrival Mode Ambulatory Ambulatory Patient Identification Verified (Name & Yes Yes ) Patient Requires Transmission-Based No No Precautions Safety Precautions Fall Prevention Height and Weight Height 5 ft 9 in Weight 200 lb Weight in Pounds 200.0 lbs Body Mass Index (BMI) 29.5 29.5 BMI Classification Overweight Overweight Vital Signs Temperature (97.8 F-99.1 F) 97.3 F L 97.6 F L Temperature Source Temporal Temporal Pulse Rate (60-100) 50 L 47 L Pulse Location Monitor Monitor Respiratory Rate (12-18) 16 16 Respiratory rate source Observation Observation Oxygen Delivery Method Room Air Blood Pressure (90/60-120/80) 151/71 H 146/59 H Blood Pressure Mean (mm Hg) 97 88 Source Monitor Monitor Position Semi-Fowlers Sitting Blood Pressure Location Left Arm Right Arm History Since Last Visit- (Skip if this is Patient's initial visit) Have you changed medications since your No last visit? Any new allergies or adverse reactions No Had a fall/change in ADL's that may No increase risk of falls Signs or symptoms of abuse and/or No neglect since last visit Has dressing in place as prescribed Yes Has compression in place as prescribed N/A Has offloadiing in place as prescribed N/A Experienced any changes in pain level or No management Left Footwear Regular Shoe Regular Shoe Right Footwear Regular Shoe Regular Shoe Pain Scale: 0-10 Numeric Is Patient Pain Free? Yes Yes Communication Assessment Primary Language Malian Preferred language Malian Senior Business Process Analyst Required No Able to Read Yes Able to Write Yes Communication Tools None Right Hearing Abillity Hard of Hearing ,Use of Hearing Aid Left Hearing Abillity Hard of Hearing ,Use of Hearing Aid Visual Assistive Devices Glasses Teaching Assessment Preferences Verbal,Written, Audio/Visual, Demonstration Barriers to Learning Unable to Comprehend Readiness To Learn Excellent Willingness to Engage in Self Management High Activies Readiness to Engage in Self Management High Activities Anxiety Level Calm Cooperation Cooperative Perception Coherent Interest in Health Problem Asks Questions Education Importance Acknowledges Need Does Patient Smoke tobacco or other No substances Smoking Status Former smoker Is Patient Diabetic No Functional Assessment Recent Decline in Ability to Perform Denies Any Declines Assistive Device With Patient No Culture/Worship/Sales Engineer Account Manager Cultural/Worship Needs that may affect No Treatment Plan Would you allow our hospital circuit rider to No meet you for the purpose of spiritual/ emotional support? Sales Engineer Account Manager to contact place of hindu No Teaching: Wound Center *Debridement -Person Taught Patient -Teaching Method Discussion, Demonstration -Response to teaching Return Demonstration, Verbalize Understanding [facility] Orientation/ Contacting Physician -Person Taught Patient -Teaching Method Discussion, Demonstration -Response to teaching Return Demonstration, Verbalize Understanding - Nurse 1 - General Ulcer Measurement Start: 05/01/25 10:08 Freq: Status: Active Protocol: Activity Type Activity Date Activity User E-sign Co-sign Detail Recorded Client Recorded Date Recorded By Document 05/01/25 10:08 JF [id number] 05/01/25 10:24 Document 05/08/25 10:43 TS [id number] 05/08/25 10:45 TS 05/01/25 05/08/25 10:08 10:43 Wound Center Nurse 1 1-right buttocks -Combined with other wound No No -Current Size (cm) - Length 1.0 0.1 -Current Size (cm) - Width 0.3 0.1 -Current Size (cm) - Depth 0.1 0.1 -Total Square Cm 0.30 0.01 -Date of Last Picture (Recall this 05/08/25 field) -Photo Taken Yes Yes -Epithelialization Medium 34-66% Medium 34-66% -Tunneling No No -Undermining/Tunneling No No -Circular Undermining No -Classification - Thickness Partial Thickness -Classification - Pressure Ulcer Stage 2 -Exudate Amt Medium None Present -Exudate Type Serosanguineous -Wound Margin Flat & Intact Flat & Intact -Granulation Amt Large (67-100%) Medium (34-66%) -Granulation Quality Red [place],Red -Slough/Fibrin Yes No -Necrosis Amt Small (1-33%) -Necrotic Tissue Type Adherent Slough -Structure Exposed N/A None/Limited to Skin Breakdown -Texture (Libby-wound Skin Appearance) Assessed Assessed -Moisture (Libby-wound Skin Appearance) No Abnormality, Dry/Scaly -Color (Libby-wound Skin Appearance) Assessed Assessed -Temperature (Libby-wound Skin No Abnormality No Abnormality Appearance) (Pt Warm) (Pt Warm) -Tenderness on Palpation (Libby-wound No Skin Appearance) -Ulcer Cleansing Rinsed/ Rinsed/ Irrigated with Irrigated with Saline Saline -Foul Odor after Cleansing No No -Anesthetic Used 4% Lidocaine 5% Lidocaine Solution Gel Lower Limb Edema Present NA WC - Nurse 2 - General Ulcer CM Notes Start: 05/01/25 10:08 Freq: Status: Active Protocol: Activity Type Activity Date Activity User E-sign Co-sign Detail Recorded Client Recorded Date Recorded By Document 05/01/25 10:52 [id number] 05/01/25 11:00 Document 05/08/25 11:09 [id number] 05/08/25 11:12 05/01/25 05/08/25 10:52 11:09 Wound Center Nurse 2 1-right buttocks -Time 10:53 11:10 -Correct Patient Yes Yes -Correct Side, Site, Position Yes Yes -Correct Procedure Yes Yes -Procedure Performed Yes Yes -Type of Procedure Debridement Debridement -Clinical Debridement Subcutaneous Epidermis / Dermis -Tissue Removed Subcutaneous Epidermis -Post Debridement (cm) - Length 0.3 0.1 -Post Debridement (cm) - Width 1.4 0.1 -Post Debridement (cm) - Depth 0.1 0.1 -Total Square (Post) (cm) 0.42 0.01 -Area of Debridement (cm) - Length 0.3 0.1 -Area of Debridement (cm) - Width 1.4 0.1 -Total Square (Area) (cm) 0.42 0.01 -Tunneling No No -Undermining/Tunneling No No -Circular Undermining No No -Wound/Ulcer Outcome Not Healed Not Healed -Ulcer Cleansing Rinsed/ Rinsed/ Irrigated with Irrigated with Saline Saline -Foul Odor after Cleansing No No -Bioengineered Tissue No No -Bleeding Controlled with Pressure Pressure -Treatment Response Procedure Procedure Tolerated Well Tolerated Well -Offloading No No -Debridement - Open, 1st 20sq cm Yes -Debridement - Subq, 1st 20sq cm Yes Pain Scale: 0-10 Numeric Is Patient Pain Free? Yes Yes WC - Nurse 3 - General Ulcer D/C NN Start: 05/01/25 10:08 Freq: Status: Active Protocol: Activity Type Activity Date Activity User E-sign Co-sign Detail Recorded Client Recorded Date Recorded By Document 05/01/25 11:27 RB [id number] 05/01/25 11:28 RB Document 05/08/25 11:19 TS [id number] 05/08/25 11:20 TS 05/01/25 05/08/25 11:27 11:19 Wound Care Center Nurse 3 1-right buttocks -Ulcer Cleansing Rinsed/ Irrigated with Saline -Primary Dressing Applied Promogran, Promogran Silicone Border Yas Matter, Foam 4x4 Silicone Border Foam 4x4 -Promogran 1 -Promogran Yas Matter 1 -Silicone Border Foam 4x4 1 1 Treatment Response Procedure Tolerated Well Pain Scale: 0-10 Numeric Is Patient Pain Free? Yes Yes WC - Visit Discharge Discharge Condition Stable Stable Ambulatory Status Ambulatory Ambulatory Transportation Private Auto Private Auto Medication Reconcilliation completed & No No provided to patient/care provider Clinical Summary of Care Provided Yes Yes Assessment/Plan Assessment/Plan (1) Decubitus ulcer of right buttock, stage 3: CODE(S): L89.313 - Pressure ulcer of right buttock, stage 3 (2) Chronic back pain: CODE(S): M54.9 - Dorsalgia, unspecified; G89.29 - Other chronic pain (3) Debility: CODE(S): R53.81 - Other malaise PLAN: Plan Debridement done as documented above, procedure was well-tolerated. Significant improvement noted since his last visit, minimal area left. Continue moistened Promogran daily covered with foam dressing. May change more often if needed. Optimal protein intake and offloading discussed, he voiced understanding. In the process of getting a hospital bed, I believe this would be very helpful to avoid recurrence. His questions were answered and was advised to let us know if he had any further questions or concerns. Follow-up in 2 weeks due to upcoming holiday. This note was generated with [employer] networkation software. It may contain incorrect words, spelling, and punctuation that were not noted in checking the note before signing.
--- NOTE | 2025-05-09 08:53 | WC ---
PHOTO-RIGHT BUTTOCK 05/08/25
--- NOTE | 2025-05-27 10:57 | WC ---
received call from pt stating that he received a message stating his equipment was ready. pt states that he already has the hospital bed and didn't know if Dr. Felipe ordered anything else. This RN called [facility] and found that the equipment was the low air loss mattress that was approved from insurance. the mattress has a $44.09/monthly rental fee. [facility] needs to know if pt is agreeable to pay this fee. This RN called pt back and informed him of what was found out. pt states the bed already has a mattress on it and has already put flannel sheets so he doesnt know if he still needs the low air loss mattress. Informed pt that when comes to his appt on to talk with Dr. Felipe about it. pt is agreeable to this
== END 2025-05-18 23:59 | disposition home or self-care (01) ==
LOC: WC 10:30
PROVIDERS: PCP Family Medicine; Referring Provider Dermatology; Visit Provider Internal Medicine
DX: L89.313 Pressure ulcer of right buttock, stage 3 (principal); G89.29 Other chronic pain; M54.9 Dorsalgia, unspecified; Z87.891 Personal history of nicotine dependence; R53.81 Other malaise
CPT/HCPCS: 11042; 97597; 99203; G0463

== ENCOUNTER 2025-06-05 10:30 | Outpatient (RCR) | payer MEDICARE, SELFPAY ==
[2025-05-22 10:44] VITALS: BP 138/76; PULSE 50; RESP 18; TEMP 36.1
--- NOTE | 2025-05-22 10:48 | WC ---
pt has dry diffuse mild rash on lower back, buttocks, upper posterior thighs
--- NOTE | 2025-05-22 12:08 | PN.PCM_ITS ---
History of Present Illness Date of Service: 05/22/25 Chief Complaint: Right buttock ulcer History of Wound: Mr. Romano is an 84-year-old who presents here due to right buttock ulcer. For the last 7 to 8 years, he states that he has had recurrent opening in his right buttock area and has sought wound care locally and in [place] where he previously lived. Due to chronic back issues, sleeps in his recliner/chair and he states that he is consistently slightly rotated with increased pressure to the right area. He has been seeing his supervisor rolling room most recently who referred him to the wound center due to nonhealing. He denies any history of diabetes mellitus and states that his appetite/dietary intake is good. In the past, had used the hospital bed but did not care for it. Feels well otherwise. Progress of Wound: No new concerns reported at this time. Minimal area left. Surrounding area of irritation. He states that he has been using his hospital bed though he does not like it. Objective Data Objective Data Vital Signs: Vital Signs Temp Pulse Resp BP O2 Del Method 96.9 F L 50 L 18 138/76 H Room Air 05/22/25 10:44 05/22/25 10:44 05/22/25 10:44 05/22/25 10:44 05/22/25 10:44 Oxygen Delivery Method Room Air Charges/Coding Procedures Integumentary 111xxx-113xx: 04986 Vivian subq tissue 20 sq cm/< (Selective/superficial debridement done today.) Physical Exam Const alert and oriented x3 General Appearance: cooperative and comfortable HEENT normocephalic and head/scalp atraumatic Eyes EOMs intact bilaterally Neck full ROM General: normal visual inspection Resp normal respiratory effort Effort and Inspection: able to speak in complete sentences Extremity no clubbing, cyanosis or edema Skin Wounds: wounds noted size Size: See Clinical Note, bed granulating well, margins well approximated, no odor and surrounding erythema Neuro oriented x3, CN's II-XII intact bilaterally, moves all extremities and no focal motor deficits Psych mental status grossly normal, thought process normal, cooperative and affect normal Debridement Note Debridement Note Wound debrided: Right buttock Wound Grade/Stage: Stage III Type of Debridement: Selective debridement Anesthesia Used: 5% Lidocaine Gel Depth: Down to and including healthy tissue Percentage of wound debrided: 100 Instrument Used: 3mm curette Tissue Removed: Devitalized tissue Severity: Limited To Skin Breakdown Amount of bleeding with debridement: Mild Bleeding Controlled with: Pressure Patient tolerated procedure: Patient tolerated procedure well Post-Debridement Measurements and Additional Note: Post-Debridement Measurements/Treatment - Nurse 1 - General Ulcer Assessment Start: 05/22/25 10:44 Freq: Status: Active Protocol: LACHELLE Activity Type Activity Date Activity User E-sign Co-sign Detail Recorded Client Recorded Date Recorded By Document 05/22/25 10:44 [id number] 05/22/25 10:48 05/22/25 10:44 - Today's Visit Information Type of service Follow-up Visit (Physician/BALLOON MAKER ) Arrival Mode Ambulatory Transfer Assistance Manual Patient Identification Verified (Name & Yes ) Vital Signs Temperature (97.8 F-99.1 F) 96.9 F L Temperature Source Oral Pulse Rate (60-100) 50 L Pulse Location Monitor Respiratory Rate (12-18) 18 Respiratory rate source Observation Oxygen Delivery Method Room Air Blood Pressure (90/60-120/80) 138/76 H Blood Pressure Mean (mm Hg) 96 Source Monitor Position Sitting Blood Pressure Location Right Arm History Since Last Visit- (Skip if this is Patient's initial visit) Have you changed medications since your No last visit? Any new allergies or adverse reactions No Had a fall/change in ADL's that may No increase risk of falls Signs or symptoms of abuse and/or No neglect since last visit Have you been in the hospital since your No last visit? Has dressing in place as prescribed No Has compression in place as prescribed N/A Has offloadiing in place as prescribed Yes Experienced any changes in pain level or No management Left Footwear Regular Shoe Right Footwear Regular Shoe Pain Scale: 0-10 Numeric Is Patient Pain Free? Yes Eduardo Nurse 1 - General Ulcer Measurement Start: 05/22/25 10:44 Freq: Status: Active Protocol: Activity Type Activity Date Activity User E-sign Co-sign Detail Recorded Client Recorded Date Recorded By Document 05/22/25 10:44 [id number] 05/22/25 10:48 05/22/25 10:44 Wound Center Nurse 1 1-right buttocks -Combined with other wound No -Current Size (cm) - Length 0.1 -Current Size (cm) - Width 0.1 -Current Size (cm) - Depth 0.1 -Total Square Cm 0.01 -Date of Last Picture (Recall this 05/22/25 field) -Photo Taken Yes -Undermining/Tunneling No -Circular Undermining No -Exudate Amt None Present -Wound Margin Flat & Intact -Granulation Amt None Present (0 %) -Slough/Fibrin Yes -Necrosis Amt Small (1-33%) -Necrotic Tissue Type Necrosis of Bone -Texture (Libby-wound Skin Appearance) Assessed -Moisture (Libby-wound Skin Appearance) Assessed -Color (Libby-wound Skin Appearance) Assessed -Temperature (Libby-wound Skin No Abnormality Appearance) (Pt Warm) -Tenderness on Palpation (Libby-wound No Skin Appearance) -Ulcer Cleansing Soap and Water -Foul Odor after Cleansing No -Anesthetic Used 5% Lidocaine Gel Lower Limb Edema Present No WC - Nurse 2 - General Ulcer CM Notes Start: 05/22/25 10:44 Freq: Status: Active Protocol: Activity Type Activity Date Activity User E-sign Co-sign Detail Recorded Client Recorded Date Recorded By Document 05/22/25 11:03 GM(2) [id number] 05/22/25 11:09 GM(2) 05/22/25 11:03 Wound Center Nurse 2 1-right buttocks -Time 11:03 -Correct Patient Yes -Correct Side, Site, Position Yes -Correct Procedure Yes -Procedure Performed Yes -Type of Procedure Debridement -Clinical Debridement Epidermis / Dermis -Tissue Removed Epidermis -Post Debridement (cm) - Length 0.1 -Post Debridement (cm) - Width 0.1 -Post Debridement (cm) - Depth 0.1 -Total Square (Post) (cm) 0.01 -Tunneling No -Undermining/Tunneling No -Circular Undermining No -Wound/Ulcer Outcome Not Healed -Ulcer Cleansing Rinsed/ Irrigated with Saline -Foul Odor after Cleansing No -Bioengineered Tissue No -Bleeding Controlled with Pressure -Treatment Response Procedure Tolerated Well -Offloading No -Debridement - Open, 1st 20sq cm Yes Pain Scale: 0-10 Numeric Is Patient Pain Free? Yes WC - Nurse 3 - General Ulcer D/C NN Start: 05/22/25 10:44 Freq: Status: Active Protocol: Activity Type Activity Date Activity User E-sign Co-sign Detail Recorded Client Recorded Date Recorded By Document 05/22/25 11:15 TS [id number] 05/22/25 11:21 TS 05/22/25 11:15 Wound Care Center Nurse 3 1-right buttocks -Ulcer Cleansing Rinsed/ Irrigated with Saline -Primary Dressing Applied Promogran, Silicone Border Foam 4x4 -Promogran 1 -Silicone Border Foam 4x4 1 Pain Scale: 0-10 Numeric Is Patient Pain Free? Yes WC - Visit Discharge Discharge Condition Stable Ambulatory Status Ambulatory Transportation Private Auto Medication Reconcilliation completed & No provided to patient/care provider Clinical Summary of Care Provided Yes Assessment/Plan Assessment/Plan (1) Decubitus ulcer of right buttock, stage 3: CODE(S): L89.313 - Pressure ulcer of right buttock, stage 3 (2) Chronic back pain: CODE(S): M54.9 - Dorsalgia, unspecified; G89.29 - Other chronic pain (3) Debility: CODE(S): R53.81 - Other malaise PLAN: Plan Debridement done as documented above, procedure was well-tolerated. Selective debridement done today, minimal area noted beneath scab. Continue moistened Promogran daily covered with foam dressing. May change more often if needed. Optimal protein intake and offloading discussed, he voiced understanding. We discussed his hospital bed, encouraged continued use despite his reluctance. His questions were answered and was advised to let us know if he had any further questions or concerns. Follow-up in 1 week or sooner if needed. This note was generated with [employer] dictation software. It may contain incorrect words, spelling, and punctuation that were not noted in checking the note before signing.
--- NOTE | 2025-05-23 09:19 | WC ---
PHOTO-RIGHT BUTTOCKS 05/22/25
[2025-05-29 10:33] VITALS: BP 111/86; PULSE 50; RESP 16; TEMP 35.9
--- NOTE | 2025-05-29 12:41 | PCM.WC.PN ---
History of Present Illness Date of Service: 05/29/25 Chief Complaint: Right buttock ulcer History of Wound: Mr. Romano is an 84-year-old who presents here due to right buttock ulcer. For the last 7 to 8 years, he states that he has had recurrent opening in his right buttock area and has sought wound care locally and in [place] where he previously lived. Due to chronic back issues, sleeps in his recliner/chair and he states that he is consistently slightly rotated with increased pressure to the right area. He has been seeing his soiled linen distributor most recently who referred him to the wound center due to nonhealing. He denies any history of diabetes mellitus and states that his appetite/dietary intake is good. In the past, had used the hospital bed but did not care for it. Feels well otherwise. Progress of Wound: Prior area of ulceration is healed however, appears with new area of breakdown thought to be from tape. Here with his today. Otherwise, is doing well. Objective Data Objective Data Vital Signs: Vital Signs Temp Pulse Resp BP O2 Del Method 96.6 F L 50 L 16 111/86 H Room Air 05/29/25 10:33 05/29/25 10:33 05/29/25 10:33 05/29/25 10:33 05/29/25 10:33 Oxygen Delivery Method Room Air Charges/Coding Procedures Integumentary 111xxx-113xx: [id number] Vivian subq tissue 20 sq cm/< Physical Exam Const alert and oriented x3 General Appearance: cooperative and comfortable HEENT normocephalic and head/scalp atraumatic Eyes EOMs intact bilaterally Neck full ROM General: normal visual inspection Resp normal respiratory effort Effort and Inspection: able to speak in complete sentences Extremity no clubbing, cyanosis or edema Skin Wounds: wounds noted size Size: See Clinical Note, bed granulating well, margins well approximated, no odor and surrounding erythema Neuro oriented x3, CN's II-XII intact bilaterally, moves all extremities and no focal motor deficits Psych mental status grossly normal, thought process normal, cooperative and affect normal Debridement Note Debridement Note Wound debrided: Right buttock (cluster) Type of Debridement: Excisional debridement Anesthesia Used: 5% Lidocaine Gel Depth: Down to and including healthy tissue and in the subcutaneous layer Percentage of wound debrided: 100 Instrument Used: 3mm curette Tissue Removed: Devitalized tissue Severity: Fat Layer Exposed Amount of bleeding with debridement: Mild Bleeding Controlled with: Pressure Patient tolerated procedure: Patient tolerated procedure well Post-Debridement Measurements and Additional Note: Post-Debridement Measurements/Treatment - Nurse 1 - General Ulcer Assessment Start: 05/22/25 10:44 Freq: Status: Active Protocol: LACHELLE Activity Type Activity Date Activity User E-sign Co-sign Detail Recorded Client Recorded Date Recorded By Document 05/22/25 10:44 GM [id number] 05/22/25 10:48 GM Document 05/29/25 10:33 DS [id number] 05/29/25 10:50 DS 05/22/25 05/29/25 10:44 10:33 WC - Today's Visit Information Type of service Follow-up Visit Follow-up Visit (Physician/BAIL BONDSMAN (Physician/BAIL BONDSMAN ) ) Arrival Mode Ambulatory Ambulatory Transfer Assistance Manual Accompanied by Patient Identification Verified (Name & Yes Yes ) Patient Requires Transmission-Based No Precautions Safety Precautions Fall Prevention Vital Signs Temperature (97.8 F-99.1 F) 96.9 F L 96.6 F L Temperature Source Oral Temporal Pulse Rate (60-100) 50 L 50 L Pulse Location Monitor Monitor Respiratory Rate (12-18) 18 16 Respiratory rate source Observation Observation Oxygen Delivery Method Room Air Room Air Blood Pressure (90/60-120/80) 138/76 H 111/86 H Blood Pressure Mean (mm Hg) 96 94 Source Monitor Monitor Position Sitting Sitting Blood Pressure Location Right Arm Right Arm History Since Last Visit- (Skip if this is Patient's initial visit) Have you changed medications since your No No last visit? Any new allergies or adverse reactions No No Had a fall/change in ADL's that may No No increase risk of falls Signs or symptoms of abuse and/or No No neglect since last visit Have you been in the hospital since your No No last visit? Has dressing in place as prescribed No Yes Has compression in place as prescribed N/A N/A Has offloadiing in place as prescribed Yes N/A Experienced any changes in pain level or No No management Left Footwear Regular Shoe Regular Shoe Right Footwear Regular Shoe Regular Shoe Pain Scale: 0-10 Numeric Is Patient Pain Free? Yes Yes ALIDA Clark Nurse 1 - General Ulcer Measurement Start: 05/22/25 10:44 Freq: Status: Active Protocol: Activity Type Activity Date Activity User E-sign Co-sign Detail Recorded Client Recorded Date Recorded By Document 05/22/25 10:44 GM [id number] 05/22/25 10:48 GM Document 05/29/25 10:33 DS [id number] 05/29/25 10:50 DS 05/22/25 05/29/25 10:44 10:33 Wound Center Nurse 1 #2 right buttock superior -Current Size (cm) - Length 0.3 -Current Size (cm) - Width 0.3 -Current Size (cm) - Depth 0.1 -Total Square Cm 0.09 -Date of Last Picture (Recall this 05/29/25 field) -Photo Taken Yes -Tunneling No -Undermining/Tunneling No -Circular Undermining No -Classification - Thickness Partial Thickness -Wound Margin Distinct, Outline Attached -Granulation Amt Large (67-100%) -Granulation Quality [place] -Texture (Libby-wound Skin Appearance) Assessed -Moisture (Libby-wound Skin Appearance) Assessed -Color (Libby-wound Skin Appearance) Assessed -Temperature (Libby-wound Skin No Abnormality Appearance) (Pt Warm) -Tenderness on Palpation (Libby-wound No Skin Appearance) -Ulcer Cleansing Soap and Water -Foul Odor after Cleansing No -Anesthetic Used 5% Lidocaine Gel 1-right buttocks -Combined with other wound No -Current Size (cm) - Length 0.1 0.1 -Current Size (cm) - Width 0.1 0.3 -Current Size (cm) - Depth 0.1 0.1 -Total Square Cm 0.01 0.03 -Date of Last Picture (Recall this 05/22/25 05/29/25 field) -Photo Taken Yes Yes -Tunneling No -Undermining/Tunneling No No -Circular Undermining No No -Classification - Thickness Partial Thickness -Exudate Amt None Present -Wound Margin Flat & Intact Distinct, Outline Attached -Granulation Amt None Present (0 Large (67-100%) %) -Granulation Quality [place] -Slough/Fibrin Yes -Necrosis Amt Small (1-33%) -Necrotic Tissue Type Necrosis of Bone -Texture (Libby-wound Skin Appearance) Assessed Assessed -Moisture (Libby-wound Skin Appearance) Assessed Assessed -Color (Libby-wound Skin Appearance) Assessed No Abnormality -Temperature (Libby-wound Skin No Abnormality No Abnormality Appearance) (Pt Warm) (Pt Warm) -Tenderness on Palpation (Libby-wound No No Skin Appearance) -Ulcer Cleansing Soap and Water Soap and Water -Foul Odor after Cleansing No No -Anesthetic Used 5% Lidocaine 5% Lidocaine Gel Gel Lower Limb Edema Present No WC - Nurse 2 - General Ulcer CM Notes Start: 05/22/25 10:44 Freq: Status: Active Protocol: Activity Type Activity Date Activity User E-sign Co-sign Detail Recorded Client Recorded Date Recorded By Document 05/22/25 11:03 GM(2) [id number] 05/22/25 11:09 GM(2) Document 05/29/25 11:10 GM(2) [id number] 05/29/25 11:19 GM(2) 05/22/25 05/29/25 11:03 11:10 Wound Center Nurse 2 #2 right buttock superior -Time 11:11 -Correct Patient Yes -Correct Side, Site, Position Yes -Correct Procedure Yes -Procedure Performed Yes -Type of Procedure Debridement -Clinical Debridement Subcutaneous -Tissue Removed Subcutaneous -Post Debridement (cm) - Length 2.0 -Post Debridement (cm) - Width 0.5 -Post Debridement (cm) - Depth 0.1 -Total Square (Post) (cm) 1.00 -Area of Debridement (cm) - Length 2.0 -Area of Debridement (cm) - Width 0.5 -Total Square (Area) (cm) 1.00 -Tunneling No -Undermining/Tunneling No -Circular Undermining No -Wound/Ulcer Outcome Not Healed -Ulcer Cleansing Rinsed/ Irrigated with Saline -Foul Odor after Cleansing No -Bioengineered Tissue No -Bleeding Controlled with Pressure -Treatment Response Procedure Tolerated Well -Offloading No -Debridement - Subq, 1st 20sq cm Yes 1-right buttocks -Time 11:03 11:11 -Correct Patient Yes Yes -Correct Side, Site, Position Yes Yes -Correct Procedure Yes No -Procedure Performed Yes No -Type of Procedure Debridement -Clinical Debridement Epidermis / Dermis -Tissue Removed Epidermis -Post Debridement (cm) - Length 0.1 -Post Debridement (cm) - Width 0.1 -Post Debridement (cm) - Depth 0.1 -Total Square (Post) (cm) 0.01 -Tunneling No No -Undermining/Tunneling No No -Circular Undermining No No -Wound/Ulcer Outcome Not Healed Healed- Epithelialized -Ulcer Cleansing Rinsed/ Not Cleansed Irrigated with Saline -Foul Odor after Cleansing No No -Bioengineered Tissue No -Bleeding Controlled with Pressure NA -Treatment Response Procedure Tolerated Well -Offloading No No -Debridement - Open, 1st 20sq cm Yes Pain Scale: 0-10 Numeric Is Patient Pain Free? Yes Yes - Nurse 3 - General Ulcer D/C NN Start: 05/22/25 10:44 Freq: Status: Active Protocol: Activity Type Activity Date Activity User E-sign Co-sign Detail Recorded Client Recorded Date Recorded By Document 05/22/25 11:15 TS [id number] 05/22/25 11:21 TS Document 05/29/25 11:36 GM [id number] 05/29/25 11:39 05/22/25 05/29/25 11:15 11:36 Wound Care Center Nurse 3 #2 right buttock superior -Ulcer Cleansing Rinsed/ Irrigated with Saline -Foul Odor after Cleansing No -Negative Pressure Wound Therapy N/A -Primary Dressing Applied Promogran, Silicone Border Foam 6x6 -Promogran 1 -Silicone Border Foam 6x6 1 1-right buttocks -Ulcer Cleansing Rinsed/ Rinsed/ Irrigated with Irrigated with Saline Saline -Primary Dressing Applied Promogran, Promogran, Silicone Border Silicone Border Foam 4x4 Foam 6x6 -Promogran 1 0 -Silicone Border Foam 4x4 1 -Silicone Border Foam 6x6 0 Pain Scale: 0-10 Numeric Is Patient Pain Free? Yes Yes WC - Visit Discharge Discharge Condition Stable Stable Ambulatory Status Ambulatory Ambulatory Transportation Private Auto Private Auto Accompanied by Medication Reconcilliation completed & No No provided to patient/care provider Clinical Summary of Care Provided Yes Yes Assessment/Plan Assessment/Plan (1) Decubitus ulcer of right buttock, stage 3: CODE(S): L89.313 - Pressure ulcer of right buttock, stage 3 (2) Chronic back pain: CODE(S): M54.9 - Dorsalgia, unspecified; G89.29 - Other chronic pain (3) Debility: CODE(S): R53.81 - Other malaise PLAN: Plan Debridement done as documented above, procedure was well-tolerated. Prior area of ulceration is healed. New concern thought to be from tape used. Plan is to get supplies in the interim from the hospital and new order for supplies have been sent. Continue moistened Promogran daily covered with foam dressing. May change more often if needed. Optimal protein intake and offloading discussed, he voiced understanding. Continue offloading and consistent use of hospital bed/[id number] mattress. We discussed ongoing care following healing. Recommend barrier dressing with zinc oxide, Aquaphor or Vaseline every day and cover with foam dressing for added support. Thier questions were answered and they were advised to let us know if he had any further questions or concerns. Follow-up in 1 week or sooner if needed. This note was generated with [employer] dictation software. It may contain incorrect words, spelling, and punctuation that were not noted in checking the note before signing.
--- NOTE | 2025-05-30 11:40 | WC ---
PHOTO-RIGHT BUTTOCKS 05/29/25
[2025-06-05 10:29] VITALS: BP 133/59; PULSE 57; RESP 16; TEMP 36.4
--- NOTE | 2025-06-05 13:05 | PN.PCM_ITS ---
History of Present Illness Date of Service: 06/05/25 Chief Complaint: Right buttock ulcer History of Wound: Mr. Romano is an 84-year-old who presents here due to right buttock ulcer. For the last 7 to 8 years, he states that he has had recurrent opening in his right buttock area and has sought wound care locally and in [place] where he previously lived. Due to chronic back issues, sleeps in his recliner/chair and he states that he is consistently slightly rotated with increased pressure to the right area. He has been seeing his marketing account manager most recently who referred him to the wound center due to nonhealing. He denies any history of diabetes mellitus and states that his appetite/dietary intake is good. In the past, had used the hospital bed but did not care for it. Feels well otherwise. Progress of Wound: Healed, no new concerns reported at this time. Objective Data Objective Data Vital Signs: Vital Signs Temp Pulse Resp BP O2 Del Method 97.5 F L 57 L 16 133/59 H Room Air 06/05/25 10:29 06/05/25 10:29 06/05/25 10:29 06/05/25 10:29 06/05/25 10:29 Oxygen Delivery Method Room Air Charges/Coding Visit Charges Office Visits / Consults: [id number] OV L3 Est 20min Physical Exam Const alert and oriented x3 General Appearance: cooperative and comfortable HEENT normocephalic and head/scalp atraumatic Eyes EOMs intact bilaterally Neck full ROM General: normal visual inspection Resp normal respiratory effort Effort and Inspection: able to speak in complete sentences Extremity no clubbing, cyanosis or edema Neuro oriented x3, CN's II-XII intact bilaterally, moves all extremities and no focal motor deficits Psych mental status grossly normal, thought process normal, cooperative and affect normal Debridement Note Debridement Note Post-Debridement Measurements and Additional Note: Post-Debridement Measurements/Treatment WC - Nurse 1 - General Ulcer Assessment Start: 05/22/25 10:44 Freq: Status: Active Protocol: LACHELLE Activity Type Activity Date Activity User E-sign Co-sign Detail Recorded Client Recorded Date Recorded By Document 05/22/25 10:44 GM [id number] 05/22/25 10:48 GM Document 05/29/25 10:33 DS [id number] 05/29/25 10:50 DS Document 06/05/25 10:29 TS [id number] 06/05/25 10:34 TS 05/22/25 05/29/25 06/05/25 10:44 10:33 10:29 - Today's Visit Information Type of service Follow-up Visit Follow-up Visit Follow-up Visit (Physician/HOUSE FURNISHINGS SUPERVISOR (Physician/HOUSE FURNISHINGS SUPERVISOR (Physician/HOUSE FURNISHINGS SUPERVISOR ) ) ) Arrival Mode Ambulatory Ambulatory Ambulatory Transfer Assistance Manual Accompanied by Patient Identification Verified (Name & Yes Yes Yes ) Patient Requires Transmission-Based No No Precautions Safety Precautions Fall Prevention Fall Prevention Vital Signs Temperature (97.8 F-99.1 F) 96.9 F L 96.6 F L 97.5 F L Temperature Source Oral Temporal Temporal Pulse Rate (60-100) 50 L 50 L 57 L Pulse Location Monitor Monitor Monitor Respiratory Rate (12-18) 18 16 16 Respiratory rate source Observation Observation Observation Oxygen Delivery Method Room Air Room Air Room Air Blood Pressure (90/60-120/80) 138/76 H 111/86 H 133/59 H Blood Pressure Mean (mm Hg) 96 94 83 Source Monitor Monitor Monitor Position Sitting Sitting Sitting Blood Pressure Location Right Arm Right Arm Right Arm History Since Last Visit- (Skip if this is Patient's initial visit) Have you changed medications since your No No No last visit? Any new allergies or adverse reactions No No No Had a fall/change in ADL's that may No No No increase risk of falls Signs or symptoms of abuse and/or No No No neglect since last visit Have you been in the hospital since your No No No last visit? Has dressing in place as prescribed No Yes Yes Has compression in place as prescribed N/A N/A N/A Has offloadiing in place as prescribed Yes N/A N/A Experienced any changes in pain level or No No No management Left Footwear Regular Shoe Regular Shoe Regular Shoe Right Footwear Regular Shoe Regular Shoe Regular Shoe Pain Scale: 0-10 Numeric Is Patient Pain Free? Yes Yes Yes - Nurse 1 - General Ulcer Measurement Start: 05/22/25 10:44 Freq: Status: Active Protocol: Activity Type Activity Date Activity User E-sign Co-sign Detail Recorded Client Recorded Date Recorded By Document 05/22/25 10:44 GM [id number] 05/22/25 10:48 Document 05/29/25 10:33 DS [id number] 05/29/25 10:50 DS Document 06/05/25 10:29 TS [id number] 06/05/25 10:34 TS 05/22/25 05/29/25 06/05/25 10:44 10:33 10:29 Wound Center Nurse 1 #2 right buttock superior -Combined with other wound No -Current Size (cm) - Length 0.3 1 -Current Size (cm) - Width 0.3 0.5 -Current Size (cm) - Depth 0.1 0.1 -Total Square Cm 0.09 0.5 -Date of Last Picture (Recall this 05/29/25 06/05/25 field) -Photo Taken Yes Yes -Tunneling No -Undermining/Tunneling No No -Circular Undermining No No -Classification - Thickness Partial Thickness -Exudate Amt Small -Exudate Type Serosanguineous -Wound Margin Distinct, Distinct, Outline Outline Attached Attached -Granulation Amt Large (67-100%) Medium (34-66%) -Granulation Quality [place],Red -Slough/Fibrin Yes -Necrosis Amt Medium (34-66%) -Necrotic Tissue Type Adherent Slough -Structure Exposed Fascia -Texture (Libby-wound Skin Appearance) Assessed No Abnormality, Assessed -Moisture (Libby-wound Skin Appearance) Assessed No Abnormality, Assessed -Color (Libby-wound Skin Appearance) Assessed No Abnormality, Assessed -Temperature (Libby-wound Skin No Abnormality No Abnormality Appearance) (Pt Warm) (Pt Warm) -Tenderness on Palpation (Libby-wound No Skin Appearance) -Ulcer Cleansing Soap and Water Soap and Water -Foul Odor after Cleansing No No -Anesthetic Used 5% Lidocaine 5% Lidocaine Gel Gel 1-right buttocks -Combined with other wound No -Current Size (cm) - Length 0.1 0.1 -Current Size (cm) - Width 0.1 0.3 -Current Size (cm) - Depth 0.1 0.1 -Total Square Cm 0.01 0.03 -Date of Last Picture (Recall this 05/22/25 05/29/25 field) -Photo Taken Yes Yes -Tunneling No -Undermining/Tunneling No No -Circular Undermining No No -Classification - Thickness Partial Thickness -Exudate Amt None Present -Wound Margin Flat & Intact Distinct, Outline Attached -Granulation Amt None Present (0 Large (67-100%) %) -Granulation Quality [place] -Slough/Fibrin Yes -Necrosis Amt Small (1-33%) -Necrotic Tissue Type Necrosis of Bone -Texture (Libby-wound Skin Appearance) Assessed Assessed -Moisture (Libby-wound Skin Appearance) Assessed Assessed -Color (Libby-wound Skin Appearance) Assessed No Abnormality -Temperature (Libby-wound Skin No Abnormality No Abnormality Appearance) (Pt Warm) (Pt Warm) -Tenderness on Palpation (Libby-wound No No Skin Appearance) -Ulcer Cleansing Soap and Water Soap and Water -Foul Odor after Cleansing No No -Anesthetic Used 5% Lidocaine 5% Lidocaine Gel Gel Lower Limb Edema Present No WC - Nurse 2 - General Ulcer CM Notes Start: 05/22/25 10:44 Freq: Status: Active Protocol: Activity Type Activity Date Activity User E-sign Co-sign Detail Recorded Client Recorded Date Recorded By Document 05/22/25 11:03 GM(2) [id number] 05/22/25 11:09 GM(2) Document 05/29/25 11:10 GM(2) [id number] 05/29/25 11:19 GM(2) Document 06/05/25 11:04 GM(2) [id number] 06/05/25 11:06 GM(2) 05/22/25 05/29/25 06/05/25 11:03 11:10 11:04 Wound Center Nurse 2 #2 right buttock superior -Time 11:11 11:04 -Correct Patient Yes Yes -Correct Side, Site, Position Yes Yes -Correct Procedure Yes No -Procedure Performed Yes No -Type of Procedure Debridement -Clinical Debridement Subcutaneous -Tissue Removed Subcutaneous -Post Debridement (cm) - Length 2.0 -Post Debridement (cm) - Width 0.5 -Post Debridement (cm) - Depth 0.1 -Total Square (Post) (cm) 1.00 -Area of Debridement (cm) - Length 2.0 -Area of Debridement (cm) - Width 0.5 -Total Square (Area) (cm) 1.00 -Tunneling No -Undermining/Tunneling No -Circular Undermining No -Wound/Ulcer Outcome Not Healed Healed- Epithelialized -Ulcer Cleansing Rinsed/ Rinsed/ Irrigated with Irrigated with Saline Saline -Foul Odor after Cleansing No No -Bioengineered Tissue No No -Bleeding Controlled with Pressure NA -Treatment Response Procedure Tolerated Well -Offloading No -Debridement - Subq, 1st 20sq cm Yes 1-right buttocks -Time 11:03 11:11 11:05 -Correct Patient Yes Yes Yes -Correct Side, Site, Position Yes Yes Yes -Correct Procedure Yes No No -Procedure Performed Yes No No -Type of Procedure Debridement -Clinical Debridement Epidermis / Dermis -Tissue Removed Epidermis -Post Debridement (cm) - Length 0.1 -Post Debridement (cm) - Width 0.1 -Post Debridement (cm) - Depth 0.1 -Total Square (Post) (cm) 0.01 -Tunneling No No No -Undermining/Tunneling No No No -Circular Undermining No No No -Wound/Ulcer Outcome Not Healed Healed- Healed- Epithelialized Epithelialized -Ulcer Cleansing Rinsed/ Not Cleansed Rinsed/ Irrigated with Irrigated with Saline Saline -Foul Odor after Cleansing No No No -Bioengineered Tissue No No -Bleeding Controlled with Pressure NA NA -Treatment Response Procedure Tolerated Well -Offloading No No -Debridement - Open, 1st 20sq cm Yes Pain Scale: 0-10 Numeric Is Patient Pain Free? Yes Yes Yes - Nurse 3 - General Ulcer D/C NN Start: 05/22/25 10:44 Freq: Status: Active Protocol: Activity Type Activity Date Activity User E-sign Co-sign Detail Recorded Client Recorded Date Recorded By Document 05/22/25 11:15 TS [id number] 05/22/25 11:21 TS Document 05/29/25 11:36 GM [id number] 05/29/25 11:39 GM Document 06/05/25 11:06 GM(2) [id number] 06/05/25 11:07 GM(2) 05/22/25 05/29/25 06/05/25 11:15 11:36 11:06 Wound Care Center Nurse 3 #2 right buttock superior -Ulcer Cleansing Rinsed/ Not Cleansed Irrigated with Saline -Foul Odor after Cleansing No No -Negative Pressure Wound Therapy N/A -Primary Dressing Applied Promogran, Silicone Border Silicone Border Foam 4x4 Foam 6x6 -Promogran 1 -Silicone Border Foam 4x4 1 -Silicone Border Foam 6x6 1 1-right buttocks -Ulcer Cleansing Rinsed/ Rinsed/ Irrigated with Irrigated with Saline Saline -Primary Dressing Applied Promogran, Promogran, Silicone Border Silicone Border Foam 4x4 Foam 6x6 -Promogran 1 0 -Silicone Border Foam 4x4 1 -Silicone Border Foam 6x6 0 Pain Scale: 0-10 Numeric Is Patient Pain Free? Yes Yes Yes WC - Visit Discharge Discharge Condition Stable Stable Stable Ambulatory Status Ambulatory Ambulatory Ambulatory Transportation Private Auto Private Auto Private Auto Accompanied by Medication Reconcilliation completed & No No provided to patient/care provider Clinical Summary of Care Provided Yes Yes Assessment/Plan Assessment/Plan (1) Decubitus ulcer of right buttock, stage 3: CODE(S): L89.313 - Pressure ulcer of right buttock, stage 3 (2) Chronic back pain: CODE(S): M54.9 - Dorsalgia, unspecified; G89.29 - Other chronic pain (3) Debility: CODE(S): R53.81 - Other malaise PLAN: Plan No debridement completed today, prior area of ulceration is healed. Still surrounding erythema. Apply Aquaphor or Vaseline to area of erythema and then cover with foam dressing. Advised to do this for 4 weeks. Continue use of [id number] mattress and hospital bed/offloading. Continue optimized dietary intake. We discussed lifelong care following healing. He is questions were answered and he was advised to let us know if he had any further questions or concerns. Discharged from the wound center. This note was generated with [employer] dictation software. It may contain incorrect words, spelling, and punctuation that were not noted in checking the note before signing.
--- NOTE | 2025-06-06 09:26 | WC ---
PHOTO-RIGHT BUTTOCK 06/05/25
== END 2025-06-18 23:59 | disposition home or self-care (01) ==
LOC: WC 10:30
PROVIDERS: PCP Family Medicine; Referring Provider Dermatology; Visit Provider Internal Medicine
DX: L89.313 Pressure ulcer of right buttock, stage 3 (principal); M54.9 Dorsalgia, unspecified; G89.29 Other chronic pain; R53.81 Other malaise
CPT/HCPCS: 11042; 97597; 99213; G0463